=== PATIENT | male | born 1965 | race Caucasian/White ===

== ENCOUNTER 2020-05-30 10:24 | Emergency (ER) | payer OTHER, SELFPAY ==
[2020-05-30 11:27] VITALS: BP 139/79; PULSE 100; RESP 18; TEMP 36.4; O2SAT 97; BMI 20.5
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
[2020-05-30] MEDS: cephALEXin 500 MG CAPSULE PO (11:45)
== END 2020-05-30 11:52 | disposition home or self-care (01) ==
PROVIDERS: Emergency Provider Emergency Medicine; PCP Family Medicine
DX: L03.115 Cellulitis of right lower limb (principal); S70.311A Abrasion, right thigh, initial encounter; T24.211A Burn of second degree of right thigh, initial encounter; T31.0 Burns involving less than 10% of body surface; M79.661 Pain in right lower leg; X12.XXXA Contact with other hot fluids, initial encounter; Y93.9 Activity, unspecified; Y92.9 Unspecified place or not applicable; Z79.899 Other long term (current) drug therapy; Z23 Encounter for immunization
CPT/HCPCS: 90471; 90715; 99284

== ENCOUNTER 2020-08-23 16:42 | Inpatient (IN) | payer OTHER, SELFPAY ==
[2020-08-23 17:44] VITALS: BP 167/86; PULSE 100; RESP 19; TEMP 36.4; O2SAT 97; BMI 20.9
--- NOTE | 2020-08-23 17:44 | PC.NURSE ---
called x for triage
[2020-08-23 19:49] VITALS: BP 140/81; PULSE 85; RESP 18; TEMP 36.9; O2SAT 97
--- NOTE | 2020-08-23 19:51 | PC.NURSE ---
pt states his last drink was 2 days ago. pt feels himself going thur the dt's tremors to hands visable. pt is cooperative and follows commands.
[2020-08-23 20:11] LABS: Basophils Percent Auto 0.2 % (0-2); Eosinophils Percent Auto 0.3 % (0-4); Hematocrit 44.7 % (42-52); Hemoglobin 14.6 g/dl (14.0-18.0); Imm Gran Abs Auto 0.01 X10*3/uL (0.00-0.03); Imm Gran Pct Auto 0.2 % (0.0-0.4); Lymphocytes Absolute Auto 0.5 X10*3/uL (1.2-4.9); Lymphocytes Percent Auto 7.5 % (20-40); MANUAL DIFF FLAG SCAN; Mean Corpuscular HGB Conc 32.7 g/dl (31.0-36.0); Mean Corpuscular Hemoglobin 28.5 pg (27.0-33.0); Mean Corpuscular Volume 87.3 fL (80-98); Mean Platelet Volume 9.9 fL (9.4-12.4); Monocytes Absolute Auto 0.4 X10*3/uL (0.1-1.2); Monocytes Percent Auto 6.9 % (2-11); Neutrophils Absolute Auto 5.5 X10*3/uL (2.0-8.3); Neutrophils Percent Auto 84.9 % (45-73); Platelet Count 198 X10*3/uL (160-400); Red Blood Count 5.12 X10*6/uL (4.60-5.80); Red Cell Distribution Width 13.5 % (11.0-16.0); SCAN SMEAR FLAG 1; White Blood Count 6.4 X10*3/uL (4.8-10.8)
[2020-08-23 20:28] LABS: SLIDE REVIEW VERIFIED
[2020-08-23 20:32] LABS: Alanine Aminotransferase 38 U/L (0-40); Albumin Level 4.8 g/dL (3.5-5.0); Alkaline Phosphatase 103 U/L (39-117); Anion Gap 24 (12-20); Aspartate Amino Transferase 59 U/L (5-37); Bilirubin Direct 0.6 mg/dL (0.0-0.5); Bilirubin Total 1.4 mg/dL (0.0-1.0); Blood Urea Nitrogen 13 mg/dL (9-16); Carbon Dioxide 24 mmol/L (22-29); Chloride 99 mmol/L (96-108); Creatinine Clr Calc Pharmacy 85.5; Estimated Glomerular Filt Rate > 60; Glucose Random 137 mg/dL (60-115); Lipase 50 U/L (8-78); Potassium 3.9 mmol/l (3.3-5.1); Sodium 143 mmol/L (135-145); Total Protein 8.6 g/dL (6.5-8.0)
--- NOTE | 2020-08-23 21:17 | ED.GENADULT ---
HPI - General Adult General Chief complaint: Nausea/Vomiting/Diarrhea Stated complaint: nausea/vomiting Time Seen by Provider: 08/23/20 17:03 Source: patient and EMS Mode of arrival: EMS Limitations: no limitations History of Present Illness HPI narrative: 55 years old who is known alcoholic for 20 years, patient drank too much beer yesterday woke up this morning with abdominal pain and intractable vomiting, patient started to feel anxious and started to have tremors and shaking, patient is unable to drink today because the vomiting, unable to tolerate any p.o. intake. Patient declined any visual or auditory hallucination. Related Data Previous Rx's Medication Instructions Recorded bacitracin zinc [Antibiotic 1 applic TOPICAL BID 7 Days g NS 05/30/20 (bacitracin zinc)] cephalexin [Keflex] 500 mg PO Q6H 10 Days #40 cap 05/30/20 doxycycline hyclate 100 mg PO BID 10 Days #20 tab NS 05/30/20 Allergies Allergy/AdvReac Type Severity Reaction Status Date / Time No Known Allergies Allergy Verified 05/30/20 11:27 [No Known Allergies*] Review of Systems Review of Systems: All other systems are reviewed and are negative Constitutional: Reports as per HPI and Reports no additional constitutional complaints Eyes: Reports as per HPI and Reports no additional eye complaints Reports system reviewed and no additional complaints, except as documented Cardiovascular: Reports as per HPI and Reports no additional cardiovascular complaints Respiratory: Reports as per HPI and Reports no additional respiratory complaints Gastrointestinal: Reports as per HPI and Reports no additional gastrointestinal complaints Genitourinary: Reports no additional female genitourinary complaints Musculoskeletal: Reports no additional musculoskeletal complaints Skin/Breast: Reports system reviewed and no additional complaints, except as docu Psychiatric: Reports no additional psychiatric complaints Endocrine: Reports no additional endocrine complaints Hematologic/Lymphatic: Reports no additional hematologic/lymphatic complaints Allergic/Immunologic: Reports no additional allergic/immunologic complaints Reports system reviewed and no additional complaints, except as documented and Reports Abnormal speech present [facility] Past Medical History Medical History ETOH abuse Social History Social History Advance Directives: No Physical Exam Vital Signs: Vital Signs: Last Vital Signs Temp 98.4 F 08/23/20 19:49 Pulse 93 08/23/20 23:50 Resp 18 08/23/20 23:50 BP 120/53 L 08/23/20 23:50 Pulse Ox 98 08/23/20 23:50 Body Mass Index 20.9 Vital signs have been reviewed as normal and appeared to be correct. Blood pressure on the high side. Heart rate normal. Respiration rate normal. Temperature normal. Oxygen saturation normal. Appearance: Alert. Oriented X3. No acute distress, appear anxious Head: Normal external exam. Normocephalic. Atraumatic. No Sandoval signs noted. No raccoon eyes noted Eyes: PERRLA. EOMI. Conjunctiva and sclera normal. Eyelids normal. ENT: EAC normal. TM's Normal. Pharynx normal. Uvula midline. Moist mucous membranes. No trismus noted. No drooling noted. No muffled voice noted. Neck: Normal inspection. Neck supple. FROM. No adenopathy. Thyroid Normal. No meningeal signs. No neck mass noted. CVS: Normal heart rate and rhythm. Heart sound normal. No murmurs noted. Pulses normal throughout. Respiratory: No respiratory distress. Painless inspiration. Breath sounds normal. No wheezes/rales/rhonchi noted. Chest nontender. No accessory muscle usage noted or decreased air movement noted. Abdomen: Soft and nontender. Bowel sounds normal in all 4 quadrants. No distention noted. No organomegaly noted. No visible injury noted. Back: No CVA tenderness. Full range of motion noted. Skin: Skin warm and dry. Normal skin color. Normal skin turgor. No rashes/lesions/lacerations noted. Extremities: No lower extremity edema. Extremities exhibit normal range of motion. Extremities nontender. Neuro: Oriented X 3. No motor deficit. No sensory deficit. Reflexes normal. In voluntarily tremor to hands, with tongue fasciculation. Course Course Course Narrative: Assessment and plan. 55-year-old male daily alcohol abuser unable to tolerate p.o. intake for 1 day presented with alcohol withdrawal symptoms, hypo magnesemia. Repeat abdominal exam showed no tenderness Will admit for alcohol withdrawal, started on phenobarb protocol, replete magnesium, Zofran for nausea and vomiting, serial abdominal exam. Medical Decision Making Lab Data Result diagrams: 08/23/20 19:59 08/23/20 19:59 Labs: Lab Results 08/23/20 08/23/20 08/23/20 Range/Units 19:59 19:59 22:43 WBC 6.4 (4.8-10.8) X10*3/uL RBC 5.12 (4.60-5.80) X10*6/uL Hgb 14.6 (14.0-18.0) g/dl Hct 44.7 (42-52) % MCV 87.3 (80-98) fL MCH 28.5 (27.0-33.0) pg MCHC 32.7 (31.0-36.0) g/dl RDW 13.5 (11.0-16.0) % Plt Count 198 (160-400) X10*3/uL MPV 9.9 (9.4-12.4) fL Immature Gran % (Auto) 0.2 (0.0-0.4) % Neut % (Auto) 84.9 H (45-73) % Lymph % (Auto) 7.5 L (20-40) % [place] % (Auto) 6.9 (2-11) % Eos % (Auto) 0.3 (0-4) % Baso % (Auto) 0.2 (0-2) % Lymph # (Auto) 0.5 L (1.2-4.9) X10*3/uL [place] # (Auto) 0.4 (0.1-1.2) X10*3/uL Eos # (Auto) 0.0 (0.0-0.4) X10*3/uL Baso # (Auto) 0.0 (0.0-0.2) X10*3/uL Abs Immat Gran (auto) 0.01 (0.00-0.03) X10*3/uL Absolute Neuts (auto) 5.5 (2.0-8.3) X10*3/uL Absolute Nucleated RBC 0.000 (0.0-0.012) X10*3/uL Nucleated RBC % (auto) 0.0 (0.0-0.2) /100WBC Smear Tech's Comments VERIFIED Sodium 143 (135-145) mmol/L Potassium 3.9 (3.3-5.1) mmol/l Chloride 99 (96-108) mmol/L Carbon Dioxide 24 (22-29) mmol/L Anion Gap 24 H (12-20) BUN 13 (9-16) mg/dL Creatinine 0.77 (0.5-1.4) mg/dL Estim Creat Clear Calc 85.5 Estimated GFR > 60 Random Glucose 137 H (60-115) mg/dL Calcium 10.0 (8.4-10.2) mg/dL Magnesium 1.4 L* (1.6-2.6) mg/dL Total Bilirubin 1.4 H (0.0-1.0) mg/dL Direct Bilirubin 0.6 H (0.0-0.5) mg/dL AST 59 H (5-37) U/L ALT 38 (0-40) U/L Alkaline Phosphatase 103 (39-117) U/L Total Protein 8.6 H (6.5-8.0) g/dL Albumin 4.8 (3.5-5.0) g/dL Lipase 50 (8-78) U/L Phenobarbital < 1.1 L (10.0-40.0) mcg/mL Discharge Plan Discharge Clinical Impression: Alcohol withdrawal, Hypomagnesemia Patient Disposition: Admitted As Inpatient Prescriptions: No Action cephalexin [Keflex] 500 mg capsule 500 mg PO Q6H 10 Days Qty: 40 RF: 0 doxycycline hyclate 100 mg tablet 100 mg PO BID 10 Days Qty: 20 RF: 0 bacitracin zinc [Antibiotic (bacitracin zinc)] 500 unit/gram ointment 1 applic topical BID 7 Days RF: 0
[2020-08-23 22:00] VITALS: RESP 20
[2020-08-23] MEDS: PHENobarbitaL sodium 130 MG/ML VIAL 230 MG IM (23:00)
[2020-08-23] MEDS: Magnesium Hydrox/Alum Hydrox 30 ML ORAL.SUSP PO (23:01)
[2020-08-23] MEDS: LORazepam 2 MG/ML VIAL 1 MG IVPUSH (23:01)
[2020-08-23] MEDS: Famotidine/PF 20 MG/2 ML VIAL IVPUSH (23:01)
[2020-08-23] MEDS: 0.9 % Sodium Chloride 1,000 ML 999 ML IVCONT (23:01)
[2020-08-23] MEDS: ondansetron HCL 4 MG/2 ML VIAL IVPUSH (23:01)
[2020-08-23 23:50] VITALS: BP 120/53; PULSE 93; RESP 18; O2SAT 98
[2020-08-23 23:53] LABS: Magnesium 1.4 mg/dL (1.6-2.6)
--- NOTE | 2020-08-23 23:57 | PC.NURSE ---
PATIENT MOVED FROM ED BED 18 [facility] TO ED BED 15. AT BEDSIDE WITH DIALS SUPERVISOR AT BEDSIDE.
[2020-08-24] VITALS (7 sets, daily range): BP systolic 105–140; BP diastolic 63–82; PULSE 67–91; RESP 16–18; TEMP 36.8; O2SAT 97–99
[2020-08-24] MEDS: Magnesium Sulfate/H2O 2 GM/50 ML PIGGYBACK IV (00:37)
[2020-08-24 01:35] LABS: Influenza A PCR NEGATIVE (Negative); Influenza B PCR NEGATIVE (Negative); Resp Syncy Virus RNA Qual PCR NEGATIVE (Negative); SARS COV2 PCR INHOUSE NEGATIVE (Negative)
--- NOTE | 2020-08-24 05:19 | P.HPHOSP_ITS ---
History of Present Illness Date of Service: 08/23/20 Chief Complaint: alcohol withdrawal, intractable N/V 55-year-old with past medical history of alcohol abuse who presents to the hospital stating that he binge drank the day before and has been nauseous and vomiting since. Patient reports he was with friends and started binge drinking a lot to the point where he started throwing up. He is now feeling shaky and weak. He is now making himself throw up as well because he feels nauseous and sick to his stomach. He otherwise denies any chest pain, no shortness of breath, no headache or change in vision, no urinary symptoms and no lower extremity edema. He is a daily drinker drinks about 6-7 beers daily, reports withdrawal symptoms if he does not drink. On arrival to the ED hemodynamically stable with no significant abnormal vitals Lab significant for WBC count of 6.4, hemoglobin of 14.6, sodium of 143, potassium of 3.9, magnesium of 1.4, total bili of 1.4, AST of 59, COVID-19 negative. Past medical history: Alcohol abuse Past surgical history: Denies Family history: Denies Social hx: comes from home, smokes 1 ppd, drinks 6-7 beers daily with hx of withdrawal, denies illicit drug use Review of Systems Review of Systems: Yes all other systems are reviewed and are negative [facility] Medical History ETOH abuse Social History Advance Directives: No Meds Allergies Allergy/AdvReac Type Severity Reaction Status Date / Time No Known Allergies Allergy Verified 05/30/20 11:27 [No Known Allergies*] Physical Exam Vital Signs and Narrative: Vital Signs: Last Vital Signs Temp 98.4 F 08/23/20 19:49 Pulse 93 08/23/20 23:50 Resp 18 08/23/20 23:50 BP 120/53 L 08/23/20 23:50 Pulse Ox 98 08/23/20 23:50 Body Mass Index 20.9 Results Labs CBC and Chem 7: 08/23/20 19:59 08/23/20 19:59 Labs: Laboratory Results - last 24 hr 08/23/20 08/23/20 08/23/20 19:59 19:59 22:43 MCV 87.3 MCH 28.5 MCHC 32.7 RDW 13.5 Plt Count 198 MPV 9.9 Immature Gran % (Auto) 0.2 Neut % (Auto) 84.9 H Lymph % (Auto) 7.5 L [place] % (Auto) 6.9 Eos % (Auto) 0.3 Baso % (Auto) 0.2 Lymph # (Auto) 0.5 L [place] # (Auto) 0.4 Eos # (Auto) 0.0 Baso # (Auto) 0.0 Abs Immat Gran (auto) 0.01 Absolute Neuts (auto) 5.5 Absolute Nucleated RBC 0.000 Nucleated RBC % (auto) 0.0 Smear Tech's Comments VERIFIED Anion Gap 24 H Estim Creat Clear Calc 85.5 Estimated GFR > 60 Random Glucose 137 H Calcium 10.0 Magnesium 1.4 L* Total Bilirubin 1.4 H Direct Bilirubin 0.6 H AST 59 H ALT 38 Alkaline Phosphatase 103 Total Protein 8.6 H Albumin 4.8 Lipase 50 Phenobarbital < 1.1 L Coronavirus (PCR) Influenza Type A (PCR) Influenza Type B (PCR) RSV RNA Qual (PCR) 08/24/20 00:45 MCV MCH MCHC RDW Plt Count MPV Immature Gran % (Auto) Neut % (Auto) Lymph % (Auto) [place] % (Auto) Eos % (Auto) Baso % (Auto) Lymph # (Auto) [place] # (Auto) Eos # (Auto) Baso # (Auto) Abs Immat Gran (auto) Absolute Neuts (auto) Absolute Nucleated RBC Nucleated RBC % (auto) Smear Tech's Comments Anion Gap Estim Creat Clear Calc Estimated GFR Random Glucose Calcium Magnesium Total Bilirubin Direct Bilirubin AST ALT Alkaline Phosphatase Total Protein Albumin Lipase Phenobarbital Coronavirus (PCR) NEGATIVE Influenza Type A (PCR) NEGATIVE Influenza Type B (PCR) NEGATIVE RSV RNA Qual (PCR) NEGATIVE Assessment and Plan (1) Alcohol withdrawal: Qualifiers: Complication of substance-induced condition: uncomplicated Qualified Code(s): F10.230 - Alcohol dependence with withdrawal, uncomplicated Status: Acute (2) Hypomagnesemia: Status: Acute (3) Tobacco use disorder: Status: Acute (4) Intractable nausea and vomiting: Status: Acute This is a 55-year-old male who presents to the hospital with complaints of alcohol withdrawal, intractable nausea vomiting. # alcohol withdrawal - drinks daily, been drink before coming to the hospital, now has intractable nausea vomiting - get started on phenobarbital in the ED - continue phenobarbital, thiamine and folic acid supplement # hypomagnesemia - repleted - will follow Mag level in a.m. # tobacco use disorder - not interested in nicotine replacement therapy DVT prophylaxis: Donald
--- NOTE | 2020-08-24 05:54 | PC.NURSE ---
VITAL SIGNS THAT WERE DOCUMENTED ON 08/23/20 AT 22:00 ENTERED ON WRONG PATIENT IN ERROR BY THIS RN. DISREGARD INVALID ENTRY.
--- NOTE | 2020-08-24 07:25 | PC.NURSE ---
report taken from otis zimmerman pt resting in stretcher, rr even/unlabored, speaking in full clear sentences, skin wpd. pt able to sit on edge of bed, eating breakfast without any issues. no nausea or vomitting noted. pt admitted as inpt. wctm for discharge needs.
[2020-08-24] MEDS: PHENobarbitaL 15 MG TABLET 45 MG PO ×2 (08:34→21:25)
[2020-08-24 11:53] LABS: MANUAL DIFF FLAG NO
[2020-08-24 11:55] LABS: Basophils Percent Auto 0.2 % (0-2); Hematocrit 44.9 % (42-52); Hemoglobin 14.6 g/dl (14.0-18.0); Imm Gran Abs Auto 0.05 X10*3/uL (0.00-0.03); Imm Gran Pct Auto 0.4 % (0.0-0.4); Lymphocytes Absolute Auto 1.5 X10*3/uL (1.2-4.9); Lymphocytes Percent Auto 12.5 % (20-40); Mean Corpuscular HGB Conc 32.5 g/dl (31.0-36.0); Mean Corpuscular Hemoglobin 28.5 pg (27.0-33.0); Mean Corpuscular Volume 87.7 fL (80-98); Mean Platelet Volume 9.8 fL (9.4-12.4); Monocytes Absolute Auto 0.8 X10*3/uL (0.1-1.2); Monocytes Percent Auto 7.1 % (2-11); Neutrophils Absolute Auto 9.4 X10*3/uL (2.0-8.3); Neutrophils Percent Auto 79.8 % (45-73); Platelet Count 171 X10*3/uL (160-400); Red Blood Count 5.12 X10*6/uL (4.60-5.80); Red Cell Distribution Width 13.3 % (11.0-16.0); White Blood Count 11.8 X10*3/uL (4.8-10.8)
--- NOTE | 2020-08-24 12:04 | PC.NURSE ---
pt iv tubing switched, appears soiled, repeat blood labs obtained and sent per verbal order from hospitalist.
[2020-08-24 12:58] LABS: Anion Gap 17 (12-20); Blood Urea Nitrogen 11 mg/dL (9-16); Calcium 9.3 mg/dL (8.4-10.2); Carbon Dioxide 28 mmol/L (22-29); Chloride 97 mmol/L (96-108); Creatinine Clr Calc Pharmacy 96.8; Estimated Glomerular Filt Rate > 60; Glucose Random 99 mg/dL (60-115); Magnesium 2.3 mg/dL (1.6-2.6); Potassium 4.2 mmol/l (3.3-5.1); Sodium 138 mmol/L (135-145)
--- NOTE | 2020-08-24 14:45 | PC.NURSE ---
pt sts feeling much better than when i came . resting in stretcher, given replacement hospital pants for comfort. ambulated to and from bathroom w steady gait.
--- NOTE | 2020-08-24 15:02 | P.PNIM_ITS ---
Subjective Subjective Date of Service: 08/24/20 Interval History: For alcohol withdrawal with intractable nausea vomiting, patient feels better this a.m. complaining of mild nausea otherwise denies abdominal pain, denies tremors no acute issues since admit. Review of Systems General no headache, no dizziness, no fever chills. CVS no chest pain, no palpitation. Respiratory no cough, no sputum production, no respiratory distress. Gastrointestinal mild nausea, no vomiting, no abdominal pain Physical Exam Vital Signs: Vital Signs: Last Vital Signs Temp 98.4 F 08/23/20 19:49 Pulse 72 08/24/20 04:00 Resp 16 08/24/20 04:00 BP 140/74 H 08/24/20 04:00 Pulse Ox 98 08/24/20 04:00 Body Mass Index 20.9 Const: Other: General patient resting comfortably in no acute distress. Neck is supple no JVD. CVS regular rate rhythm, Respiratory lungs clear to auscultation, no respiratory distress Gastrointestinal abdomen soft, nontender, bowel sounds audible, no guarding , no rigidity. Extremities no clubbing cyanosis or edema. Neuro nonfocal patient moving all 4 extremity, speech clear. Skin no rash Objective Data Current Medications Generic Name Dose Route Start Last Admin Trade Name Freq PRN Reason Stop Dose Admin Medication 1 each 08/24/20 09:00 No Benzodiazepines MISCELLANE DAILY [facility] Phenobarbital 45 mg 08/24/20 09:00 08/24/20 08:34 Phenobarbital 15 Mg Tablet PO 08/25/20 21:01 45 mg BID [facility] Administration Phenobarbital 15 mg 08/26/20 09:00 Phenobarbital 15 Mg Tablet PO 08/27/20 21:01 BID [facility] Phenobarbital 15 mg 08/28/20 09:00 Phenobarbital 15 Mg Tablet PO 08/29/20 09:01 DAILY [facility] Labs CBC & Chem 7: 08/24/20 11:48 08/24/20 11:48 Assessment and Plan (1) Alcohol withdrawal: Status: Acute (2) Hypomagnesemia: Status: Acute (3) Tobacco use disorder: Status: Acute (4) Intractable nausea and vomiting: Status: Acute Assessment and Plan: This is a 55-year-old male who presents to the hospital with complaints of alcohol withdrawal, intractable nausea and vomiting. # alcohol withdrawal with intractable nausea and vomiting Nausea vomiting improving, continue phenobarb protocol thiamine , folic acid and anti emetics. Care team consult prior to discharge # hypomagnesemia - low magnesium related to poor nutrition with chronic alcohol abuse, repleted on admission magnesium 1.4 now improved to 2.3 # tobacco use disorder - patient declined nicotine replacement therapy DVT prophylaxis: Lovenox
[2020-08-24] MEDS: Folic Acid 1 MG TABLET PO (15:47)
[2020-08-24] MEDS: Thiamine HCL 100 MG TABLET PO (15:47)
[2020-08-24] MEDS: Enoxaparin Sodium 40 MG/0.4 ML SYRINGE SUBCUT (15:47)
--- NOTE | 2020-08-24 16:03 | PC.NURSE ---
took afternoon meds w/o issue. given cup of coffee per request. nad.
--- NOTE | 2020-08-24 19:49 | PC.NURSE ---
Report taken from qasim Pickering RN resuming care. Pt found awake and alert in bed, in NAD. Pt denies pain, denies alcohol withdrawals, no temors, N/V, auditory/visual hallucinations at this time. VSS. Pt aware of plan of care, awaiting bed assignment. Continue to monitor.
--- NOTE | 2020-08-24 21:09 | PC.NURSE ---
This RN calling pharmacy as the pyxis is out of Phenobarb tablets. Pharm to bring medication to ED. Awaiting medication.
[2020-08-25] MEDS: 0.9 % Sodium Chloride Flush 3 ML SYRINGE IVFLUSH (00:05)
[2020-08-25 02:58] VITALS: RESP 16
[2020-08-25 05:43] VITALS: RESP 20
[2020-08-25 05:56] VITALS: BP 148/72; PULSE 68; RESP 16; O2SAT 99
--- NOTE | 2020-08-25 05:57 | PC.NURSE ---
Pt awake and alert, resting in bed, denies pain/discomfort. Pt denies any s/sx of alcohol withdrawal at this time. -Tremors/hallucinations/anxiety/N/V noted. VSS. Continue to monitor.
[2020-08-25 09:00] VITALS: BP 136/72; PULSE 74; RESP 18; TEMP 36.8; O2SAT 99
--- NOTE | 2020-08-25 09:00 | PC.NURSE ---
Pt requesting to leave AMA. Pacing in room. States he is feeling better and just wants to go home. Dr Shannon notified, patient to be seen by CARE team prior to discharge home. Pt agreeable to plan.
--- NOTE | 2020-08-25 10:52 | MHC.RECOVSUP ---
Recovery Support note: Patient is a 55 year old Surinamese speaking male who [place] [facility] due to headache, nausea, vomiting and dizziness. Patient was going to be medically admitted when he expressed his desire to leave AMA. This entry writer met with patient to discuss his alcohol use. Patient reports he is scared because of the sound/ pain coming from his liver. Patient acknowledges that continued alcohol use will only make it worse. Patient reports he plans to avoid alcohol entirely. Patient states he has tried to stop drinking in the past and that he found AA meetings helpful. Patient reports his is supportive and that she also wants patient to stop drinking and to get into meetings. Patient reports he wants to remain in the hospital however states someone is staying in my room and I need to go get the banuelos. Encouraged patient to return to the ED if symptoms continue or worsen. Discussed case with patient's RN, Andres.
--- NOTE | 2020-08-25 11:04 | MHC.CM.PN ---
CM ASSESSMENT INCOMPLETE DUE TO PT LEAVING AMA PRIOR TO TRANSFER TO UNIT, CM SPOKE WITH CARE TEAM WHO REPORTS THEY SAW PT IN ED.
--- NOTE | 2020-08-25 14:23 | P.DS_ITS ---
DS: Providers Provider Date of Service: 08/25/20 Date of admission: 08/23/20 23:43 Primary care physician: Unknown Physician Consults: 08/25/20 09:20 Consult to Care Team Stat Comment: Reason for consultation: substance abuse, needs consult prior to DC DS: Diagnosis Discharge Diagnosis (1) Alcohol withdrawal: Status: Acute (2) Hypomagnesemia: Status: Acute (3) Tobacco use disorder: Status: Acute (4) Intractable nausea and vomiting: Status: Acute DS: Medications Discharge Medications Home Medications: Home Medications Medication Instructions Recorded Confirmed melatonin 10 mg PO BEDTIME 08/25/20 08/25/20 ondansetron HCl 4 mg PO Q6H PRN 08/25/20 08/25/20 DS: Summary Hospital Course Hospital Course: History of presenting illness Chief Complaint: alcohol withdrawal, intractable N/V 55-year-old with past medical history of alcohol abuse who presents to the hospital stating that he binge drank the day before and has been nauseous and vo miting since. Patient reports he was with friends and started binge drinking a lot to the point where he started throwing up. He is now feeling shaky and weak. He is now making himself throw up as well because he feels nauseous and sick to his stomach. He otherwise denies any chest pain, no shortness of breath, no headache or change in vision, no urinary symptoms and no lower extremity edema. He is a daily drinker drinks about 6-7 beers daily, reports withdrawal symptoms if he does not drink. On arrival to the ED hemodynamically stable with no significant abnormal vitals Lab significant for WBC count of 6.4, hemoglobin of 14.6, sodium of 143, potassium of 3.9, magnesium of 1.4, total bili of 1.4, AST of 59, COVID-19 negative. Hospital course Alcohol abuse and withdrawal Patient was admitted to medical floor was treated with phenobarb protocol, antiemetics patient's symptoms improved rapidly with above treatment, patient has no further nausea vomiting tolerating diet therefore being discharged home, patient seen by care team, patient has been strongly advised to abstain from alcohol. Hypo magnesemia patient was noted to have low magnesium level that has been repleted repeat magnesium level is within normal range Tobacco use disorder counseling done patient refused nicotine replacement therapy Time Spent with Patient Time attestation: Total time spent providing and/or coordinating discharge services: Discharge coordination time: Greater than 30 minutes Physical Exam Vital Signs: Vital Signs: Last Vital Signs Temp 98.2 F 08/25/20 09:00 Pulse 74 08/25/20 09:00 Resp 18 08/25/20 09:00 BP 136/72 08/25/20 09:00 Pulse Ox 99 08/25/20 09:00 Body Mass Index 20.9 General patient is standing in hallway, no acute distress. Neck is supple no JVD. CVS regular rate rhythm, Respiratory lungs clear to auscultation, no respiratory distress, no wheeze, no rhonchi. Gastrointestinal abdomen soft, nontender, bowel sounds audible Extremities no clubbing cyanosis or edema. Neuro nonfocal , speech clear, no tremors. Skin no rash DS: Data Data Completed and Pending Labs on day of discharge: Laboratory Tests 08/23/20 08/23/20 08/23/20 19:59 19:59 22:43 WBC 6.4 RBC 5.12 Hgb 14.6 Hct 44.7 MCV 87.3 MCH 28.5 MCHC 32.7 RDW 13.5 Plt Count 198 MPV 9.9 Immature Gran % (Auto) 0.2 Neut % (Auto) 84.9 H Lymph % (Auto) 7.5 L [place] % (Auto) 6.9 Eos % (Auto) 0.3 Baso % (Auto) 0.2 Lymph # (Auto) 0.5 L [place] # (Auto) 0.4 Eos # (Auto) 0.0 Baso # (Auto) 0.0 Abs Immat Gran (auto) 0.01 Absolute Neuts (auto) 5.5 Absolute Nucleated RBC 0.000 Nucleated RBC % (auto) 0.0 Smear Tech's Comments VERIFIED Sodium 143 Potassium 3.9 Chloride 99 Carbon Dioxide 24 Anion Gap 24 H BUN 13 Creatinine 0.77 Estim Creat Clear Calc 85.5 Estimated GFR > 60 Random Glucose 137 H Calcium 10.0 Magnesium 1.4 L* Total Bilirubin 1.4 H Direct Bilirubin 0.6 H AST 59 H ALT 38 Alkaline Phosphatase 103 Total Protein 8.6 H Albumin 4.8 Lipase 50 Phenobarbital < 1.1 L Coronavirus (PCR) Influenza Type A (PCR) Influenza Type B (PCR) RSV RNA Qual (PCR) 08/24/20 08/24/20 08/24/20 00:45 11:48 11:48 WBC 11.8 H RBC 5.12 Hgb 14.6 Hct 44.9 MCV 87.7 MCH 28.5 MCHC 32.5 RDW 13.3 Plt Count 171 MPV 9.8 Immature Gran % (Auto) 0.4 Neut % (Auto) 79.8 H Lymph % (Auto) 12.5 L [place] % (Auto) 7.1 Eos % (Auto) 0.0 Baso % (Auto) 0.2 Lymph # (Auto) 1.5 [place] # (Auto) 0.8 Eos # (Auto) 0.0 Baso # (Auto) 0.0 Abs Immat Gran (auto) 0.05 H Absolute Neuts (auto) 9.4 H Absolute Nucleated RBC 0.000 Nucleated RBC % (auto) 0.0 Smear Tech's Comments Sodium 138 Potassium 4.2 Chloride 97 Carbon Dioxide 28 Anion Gap 17 BUN 11 Creatinine 0.68 Estim Creat Clear Calc 96.8 Estimated GFR > 60 Random Glucose 99 Calcium 9.3 D Magnesium 2.3 Total Bilirubin Direct Bilirubin AST ALT Alkaline Phosphatase Total Protein Albumin Lipase Phenobarbital Coronavirus (PCR) NEGATIVE Influenza Type A (PCR) NEGATIVE Influenza Type B (PCR) NEGATIVE RSV RNA Qual (PCR) NEGATIVE Discharge Plan Discharge Patient Disposition: Home, Self-Care Referrals: Physician,Unknown [Primary Care Provider] - Discharge Medications: Continued ondansetron HCl 4 mg tablet 4 mg PO Q6H PRN (Reason: nausea/vomiting) RF: 0 melatonin 5 mg tablet 10 mg PO BEDTIME RF: 0 Discharge Orders: Discharge Order (Routine); Ordered 08/25/20 Ordered By: Lupe Shannon Activity on Discharge: As tolerated Discharge Date/Time: 08/25/20 13:50 Visit Report Forms: Patient Portal Discharge page Care Plan Goals: abstain from alcohol Health Concerns: no alcohol Plan of Treatment: follow up with pcp
== END 2020-08-25 13:50 | disposition home or self-care (01) | DRG 641 ==
LOC: HO.ED 08-24 00:24 → HO.S3 08-25 09:02
PROVIDERS: Hospitalist; Admitting Provider Internal Medicine; Emergency Provider Emergency Medicine; Visit Provider Internal Medicine
DX: E83.42 Hypomagnesemia (principal); F10.230 Alcohol dependence with withdrawal, uncomplicated; F17.210 Nicotine dependence, cigarettes, uncomplicated; Z71.6 Tobacco abuse counseling; Z20.828 Contact with and (suspected) exposure to other viral communicable diseases; Z79.899 Other long term (current) drug therapy
CPT/HCPCS: 0241U; 36415; 80048; 80053; 80076; 80184; 82248; 83690; 83735; 85025; 96365; 96372; 96375; 99285; J1650; J2060; J2405; J2560; J3411; J3475

== ENCOUNTER 2020-09-16 02:42 | Emergency (ER) | payer OTHER, SELFPAY ==
[2020-09-16 02:47] VITALS: BP 147/81; PULSE 110; RESP 16; TEMP 36.8; O2SAT 98; BMI 20.1
--- NOTE | 2020-09-16 03:10 | ED.NAVMDI ---
HPI - Nausea/Vomiting/Diarrhea General Chief complaint: Nausea/Vomiting/Diarrhea Stated complaint: vomiting Time Seen by Provider: 09/16/20 03:10 Source: patient Mode of arrival: EMS History of Present Illness HPI Narrative: This is a 55-year-old male known alcohol dependence who presents via EMS for multiple episodes of nausea, vomiting, abdominal discomfort, mild diarrhea, tremulousness, and auditory hallucinations. Otherwise, denies fever, chills, sore throat, cough, shortness of breath. Related Data Home Medications Medication Instructions Recorded Confirmed melatonin 10 mg PO BEDTIME 08/25/20 08/25/20 ondansetron HCl 4 mg PO Q6H PRN 08/25/20 08/25/20 Allergies Allergy/AdvReac Type Severity Reaction Status Date / Time No Known Allergies Allergy Verified 05/30/20 11:27 [No Known Allergies*] Review of Systems Review of Systems: Pertinent positives and negatives as stated in HPI 10 point review of systems is otherwise negative PMFSH Past Medical History Source: nursing notes reviewed Medical History ETOH abuse Social History Social History Alcohol intake: current Alcohol intake frequency: 3 or more drinks per day Alcohol type: hard liquor Smoking Status: Never smoker Smoked in Last 30 Days: No Use of substances other than those prescribed or required for medical reasons: No Advance Directives: No Physical Exam Vital Signs: Vital Signs: Last Vital Signs Temp 98.2 F 09/16/20 02:47 Pulse 84 09/16/20 04:00 Resp 16 09/16/20 04:00 BP 148/74 H 09/16/20 04:00 Pulse Ox 98 09/16/20 04:00 Body Mass Index 20.1 VITAL SIGNS: Reviewed. GENERAL: Cachectic, mild distress. HEAD: Normocephalic/atraumatic, EYES: PERRLA, EOMI EARS: Ext canals without abnormality, TMs non-bulging and non-erythematous NOSE: Nares patent bilateral OROPHARYNX: no oral lesions noted, posterior pharynx clear, dry mucosa, poor dentition NECK: Supple, no adenopathy LUNGS: Normal breath sounds. SpO2<98> CARDIOVASCULAR: Regular rate and rhythm without noted murmurs, no JVD or lower extremity edema. ABDOMEN: Soft, minimal diffuse tenderness, non-distended with bowel sounds. NEUROLOGIC: Alert and oriented x 4. Tremulous, strength and sensation to light touch were grossly intact x 4. Course Course Course Narrative: This is a 55-year-old male with history and clinical presentation suggestive alcohol withdrawal and likely dehydration. -labs, EKG, urinalysis, IV fluids, Zofran, benzos Review of all investigations and re-evaluation there are no acute changes and the mild leukocytosis that is observed is likely secondary to patient's nausea and vomiting. Patient was provided with the p.o. challenge which he completed successfully and states that he is feeling much better and is requesting to be discharged. MDM - Nausea/Vomiting/Diarrhea Lab Data Result diagrams: 09/16/20 03:14 09/16/20 03:14 Labs: Lab Results 09/16/20 09/16/20 09/16/20 Range/Units 03:14 03:14 03:14 WBC 11.8 H (4.8-10.8) X10*3/uL RBC 5.29 (4.60-5.80) X10*6/uL Hgb 14.9 (14.0-18.0) g/dl Hct 45.1 (42-52) % MCV 85.3 (80-98) fL MCH 28.2 (27.0-33.0) pg MCHC 33.0 (31.0-36.0) g/dl RDW 13.8 (11.0-16.0) % Plt Count 171 (160-400) X10*3/uL MPV 10.0 (9.4-12.4) fL Immature Gran % (Auto) 0.4 (0.0-0.4) % Neut % (Auto) 86.5 H (45-73) % Lymph % (Auto) 5.2 L (20-40) % [place] % (Auto) 7.6 (2-11) % Eos % (Auto) 0.1 (0-4) % Baso % (Auto) 0.2 (0-2) % Lymph # (Auto) 0.6 L (1.2-4.9) X10*3/uL [place] # (Auto) 0.9 (0.1-1.2) X10*3/uL Eos # (Auto) 0.0 (0.0-0.4) X10*3/uL Baso # (Auto) 0.0 (0.0-0.2) X10*3/uL Abs Immat Gran (auto) 0.05 H (0.00-0.03) X10*3/uL Absolute Neuts (auto) 10.2 H (2.0-8.3) X10*3/uL Absolute Nucleated RBC 0.000 (0.0-0.012) X10*3/uL Nucleated RBC % (auto) 0.0 (0.0-0.2) /100WBC Smear Tech's Comments VERIFIED Hold Purple Top SEE NOTE Hold Blue Top SEE NOTE Sodium (135-145) mmol/L Potassium (3.3-5.1) mmol/L Chloride (96-108) mmol/L Carbon Dioxide (22-29) mmol/L Anion Gap (12-20) BUN (9-16) mg/dL Creatinine (0.5-1.4) mg/dL Estim Creat Clear Calc Estimated GFR Random Glucose (60-115) mg/dL Calcium (8.4-10.2) mg/dL Total Bilirubin (0.0-1.0) mg/dL Direct Bilirubin (0.0-0.5) mg/dL AST (5-37) U/L ALT (0-40) U/L Alkaline Phosphatase (39-117) U/L Total Protein (6.5-8.0) g/dL Albumin (3.5-5.0) g/dL Lipase (8-78) U/L // Range/Units 03:14 WBC (4.8-10.8) X10*3/uL RBC (4.60-5.80) X10*6/uL Hgb (14.0-18.0) g/dl Hct (42-52) % MCV (80-98) fL MCH (27.0-33.0) pg MCHC (31.0-36.0) g/dl RDW (11.0-16.0) % Plt Count (160-400) X10*3/uL MPV (9.4-12.4) fL Immature Gran % (Auto) (0.0-0.4) % Neut % (Auto) (45-73) % Lymph % (Auto) (20-40) % [place] % (Auto) (2-11) % Eos % (Auto) (0-4) % Baso % (Auto) (0-2) % Lymph # (Auto) (1.2-4.9) X10*3/uL [place] # (Auto) (0.1-1.2) X10*3/uL Eos # (Auto) (0.0-0.4) X10*3/uL Baso # (Auto) (0.0-0.2) X10*3/uL Abs Immat Gran (auto) (0.00-0.03) X10*3/uL Absolute Neuts (auto) (2.0-8.3) X10*3/uL Absolute Nucleated RBC (0.0-0.012) X10*3/uL Nucleated RBC % (auto) (0.0-0.2) /100WBC Smear Tech's Comments Hold Purple Top Hold Blue Top Sodium 140 (135-145) mmol/L Potassium 3.8 (3.3-5.1) mmol/L Chloride 91 L (96-108) mmol/L Carbon Dioxide 27 (22-29) mmol/L Anion Gap 26 H (12-20) BUN 15 (9-16) mg/dL Creatinine 0.78 (0.5-1.4) mg/dL Estim Creat Clear Calc 81.2 Estimated GFR > 60 Random Glucose 145 H D (60-115) mg/dL Calcium 9.7 (8.4-10.2) mg/dL Total Bilirubin 1.5 H (0.0-1.0) mg/dL Direct Bilirubin 0.5 (0.0-0.5) mg/dL AST 48 H (5-37) U/L ALT 31 (0-40) U/L Alkaline Phosphatase 125 H D (39-117) U/L Total Protein 8.5 H (6.5-8.0) g/dL Albumin 4.3 (3.5-5.0) g/dL Lipase 37 (8-78) U/L ECG Data Attestation: I personally reviewed and interpreted this ECG as follows: Prior ECG tracings: available for review (04/07/2020 no acute changes on comparison) Interpretation: Sinus tachycardia, HR -106, no evidence of acute ischemia, MS/QRS/QTC within normal limits. Discharge Plan Discharge Clinical Impression: Gastritis Qualifiers: Gastritis type: alcoholic Chronicity: acute Gastritis bleeding: without bleeding Qualified Code(s): K29.20 - Alcoholic gastritis without bleeding Alcohol withdrawal Qualifiers: Complication of substance-induced condition: uncomplicated Qualified Code(s): F10.230 - Alcohol dependence with withdrawal, uncomplicated Patient Disposition: Home, Self-Care Instructions: Diet for Stomach Ulcers and Gastritis (ED), Gastritis (ED), Alcohol Withdrawal (ED) Additional Instructions: Please do not hesitate to return to the emergency department the have any acute worsening of your symptoms. Prescriptions: No Action ondansetron HCl 4 mg tablet 4 mg PO Q6H PRN (Reason: nausea/vomiting) RF: 0 melatonin 5 mg tablet 10 mg PO BEDTIME RF: 0 Print Language: Macedonian
--- NOTE | 2020-09-16 03:12 | ECG_ITS ---
Test Reason : NAUSEA Blood Pressure : / mmHG Vent. Rate : 106 BPM Atrial Rate : 106 BPM P-R Int : 112 ms QRS Dur : 078 ms QT Int : 360 ms P-R-T Axes : 076 070 066 degrees QTc Int : 478 ms Sinus tachycardia Otherwise normal ECG When compared with ECG of 07-APR-2020 01:44, No significant change was found Referred By: Farrah Rothman Electronically Signed By:SUSU SANCHES MD
[2020-09-16 03:20] LABS: Basophils Percent Auto 0.2 % (0-2); PLT CLUMP 1; SCAN SMEAR FLAG 1
[2020-09-16 03:22] LABS: Eosinophils Percent Auto 0.1 % (0-4); Hematocrit 45.1 % (42-52); Hemoglobin 14.9 g/dl (14.0-18.0); Imm Gran Abs Auto 0.05 X10*3/uL (0.00-0.03); Imm Gran Pct Auto 0.4 % (0.0-0.4); Lymphocytes Absolute Auto 0.6 X10*3/uL (1.2-4.9); Lymphocytes Percent Auto 5.2 % (20-40); MANUAL DIFF FLAG SCAN; Mean Corpuscular Hemoglobin 28.2 pg (27.0-33.0); Mean Corpuscular Volume 85.3 fL (80-98); Monocytes Absolute Auto 0.9 X10*3/uL (0.1-1.2); Monocytes Percent Auto 7.6 % (2-11); Neutrophils Absolute Auto 10.2 X10*3/uL (2.0-8.3); Neutrophils Percent Auto 86.5 % (45-73); Red Blood Count 5.29 X10*6/uL (4.60-5.80); Red Cell Distribution Width 13.8 % (11.0-16.0); White Blood Count 11.8 X10*3/uL (4.8-10.8)
[2020-09-16 03:40] LABS: Platelet Count 171 X10*3/uL (160-400)
[2020-09-16 03:41] LABS: SLIDE REVIEW VERIFIED
[2020-09-16 03:48] LABS: Alanine Aminotransferase 31 U/L (0-40); Albumin Level 4.3 g/dL (3.5-5.0); Alkaline Phosphatase 125 U/L (39-117); Anion Gap 26 (12-20); Aspartate Amino Transferase 48 U/L (5-37); Bilirubin Direct 0.5 mg/dL (0.0-0.5); Bilirubin Total 1.5 mg/dL (0.0-1.0); Blood Urea Nitrogen 15 mg/dL (9-16); Calcium 9.7 mg/dL (8.4-10.2); Carbon Dioxide 27 mmol/L (22-29); Chloride 91 mmol/L (96-108); Creatinine Clr Calc Pharmacy 81.2; Estimated Glomerular Filt Rate > 60; Glucose Random 145 mg/dL (60-115); Lipase 37 U/L (8-78); Potassium 3.8 mmol/L (3.3-5.1); Sodium 140 mmol/L (135-145); Total Protein 8.5 g/dL (6.5-8.0)
[2020-09-16 04:00] VITALS: BP 148/74; PULSE 84; RESP 16; O2SAT 98
[2020-09-16] MEDS: LORazepam 2 MG/ML VIAL 1 MG IVPUSH (04:06)
[2020-09-16] MEDS: ondansetron HCL 4 MG/2 ML VIAL IVPUSH (04:06)
[2020-09-16] MEDS: 0.9 % Sodium Chloride 2,000 ML 999 ML IV (04:16)
[2020-09-16] MEDS: Lidocaine HCl Viscous 2 % 15 ML SOLUTION 10 ML MUCOUS MEM (05:05)
[2020-09-16] MEDS: Magnesium Hydrox/Alum Hydrox 30 ML ORAL.SUSP PO (05:05)
== END 2020-09-16 11:49 | disposition home or self-care (01) ==
PROVIDERS: Emergency Provider Student in an Organized Health Care Education/Training Program
DX: K29.20 Alcoholic gastritis without bleeding (principal); F10.230 Alcohol dependence with withdrawal, uncomplicated; R00.0 Tachycardia, unspecified
CPT/HCPCS: 36415; 80048; 80076; 83690; 85025; 93005; 96361; 96374; 96375; 99284; J2060; J2405

== ENCOUNTER 2021-01-13 18:37 | Emergency (ER) | payer OTHER, SELFPAY ==
[2021-01-13 18:40] VITALS: BP 148/80; PULSE 105; O2SAT 98
[2021-01-13 18:46] VITALS: BP 159/97; PULSE 120; RESP 16; TEMP 36.6; O2SAT 96; BMI 20.2
[2021-01-13 19:37] LABS: COVID-19 Test Negative (Negative); IDNOW Serial# 9DD0AD1C
[2021-01-13 20:03] LABS: Ethanol 380 mg/dL
--- NOTE | 2021-01-13 20:05 | ED.GENADULT ---
HPI - General Adult General Chief complaint: Psychiatric Symptoms Stated complaint: CRISIS,ETOH,SI Source: patient Mode of arrival: ambulatory Limitations: no limitations History of Present Illness HPI narrative: Patient presents to the ED for drinking alcohol. Patient is not depressed. Patient is not suicidal. Patient stable like to go home. States no psych complaints. Patient is not homicidal. Patient denies any auditory/visual hallucinations Related Data Home Medications Medication Instructions Recorded Confirmed melatonin 10 mg PO BEDTIME 08/25/20 08/25/20 ondansetron HCl 4 mg PO Q6H PRN 08/25/20 08/25/20 Allergies Allergy/AdvReac Type Severity Reaction Status Date / Time No Known Allergies Allergy Verified 05/30/20 11:27 [No Known Allergies*] Review of Systems Review of Systems: Yes all other systems are reviewed and are negative Constitutional: Constitutional: Reports as per HPI and Reports no additional constitutional complaints Eyes: Eyes: Reports as per HPI and Reports no additional eye complaints ENT: Reports system reviewed and no additional complaints, except as documented and Reports as per HPI Cardiovascular: Cardiovascular: Reports as per HPI and Reports no additional cardiovascular complaints Respiratory: Respiratory: Reports as per HPI and Reports no additional respiratory complaints Gastrointestinal: Gastrointestinal: Reports as per HPI and Reports no additional gastrointestinal complaints Genitourinary: Genitourinary: Reports no additional male genitourinary complaints and Reports as per HPI Musculoskeletal: Musculoskeletal: Reports no additional musculoskeletal complaints and Reports as per HPI Neurologic: Reports system reviewed and no additional complaints, except as documented and Reports as per HPI Psychiatric: Psychiatric: Reports no additional psychiatric complaints and Reports as per HPI PMF Past Medical History Medical History ETOH abuse Social History Social History Alcohol intake: current Alcohol intake frequency: 3 or more drinks per day Alcohol type: hard liquor Advance Directives: No Advance Directives Information Provided: No Physical Exam Vital Signs: Vital Signs: Last Vital Signs Temp 97.8 F 01/13/21 20:18 Pulse 96 01/13/21 20:18 Resp 18 01/13/21 20:18 BP 123/84 01/13/21 20:18 Pulse Ox 98 01/13/21 20:18 Body Mass Index 42.9 Const: General: cooperative, healthy appearing, comfortable, no acute distress, well developed, alert, awake and Physically active Orientation/consciousness: oriented to person, oriented to place, oriented to time and patient oriented x3 HENMT: Head: Yes normal to inspection, Yes No palpable skull fracture present, Yes normocephalic and Yes atraumatic Eyes: General: appearance normal, both eyes and all related structures Neck: Neck: Yes normal visual inspection, Yes full ROM, Yes no lymphadenopathy, Yes no meningeal signs, Yes trachea midline, Yes supple and No tender Chest: Chest palpation & inspection: normal inspection of the chest and normal palpation of entire chest wall Resp: Effort & Inspection: normal respiratory effort and able to speak in complete sentences Auscultation: clear to auscultation bilaterally Cardio: Jugular venous distension: no JVD Heart sounds: S1 normal heart sound present and S2 normal heart sound present GI: Inspection: Yes normal to inspection and No abdominal wall ecchymosis Palpation (GI): Soft to palpation, not firm, nontender and no guarding : General: No CVA tenderness and Yes no CVA tenderness Back/Spine/Pelvis: Back: no CVA tenderness, No CVA tenderness and No back tenderness Skin: General skin exam: no rashes or lesions noted and elasticity normal Neuro: General: oriented to person, oriented to place, oriented to time, patient oriented x3, gait normal, no meningeal signs and CN's II-XI intact bilaterally Extrem: General: Yes normal to inspection and Yes full ROM Psych: Appearance: grossly normal, well kempt and not disheveled Course Course Course Narrative: Will let patient sober up and than discharge. No crisis intervention indicated. Reevaluation(s) Reevaluation #1: Sister came to seed cone picker patient for a safe discharge home. Patient does not want any detox. Vital signs redone and improved Medical Decision Making Lab Data Labs: Lab Results 01/13/21 01/13/21 Range/Units 19:13 19:28 Ethyl Alcohol 380 H* mg/dL COVID-19 ([facility]) Negative (Negative) COVID-19 Clin Com See Note Discharge Plan Discharge Clinical Impression: Alcohol abuse Patient Disposition: Home, Self-Care Instructions: Abuse of Alcohol (ED) Additional Instructions: Return to the ED for any headache, dizziness, chest pain, abdominal pain, neck pain, shortness of breath, blood in stool, vomiting blood, dysuria, hematuria, flank pain, suicidal/homicidal, auditory/visual hallucinations, or any other concerning symptoms. Please follow-up with your PCP Prescriptions: No Action ondansetron HCl 4 mg tablet 4 mg PO Q6H PRN (Reason: nausea/vomiting) RF: 0 melatonin 5 mg tablet 10 mg PO BEDTIME RF: 0 Interventions: ED Discharge Assessment Last Done: 01/13/21 20:54 Discharge Date/Time: 01/13/21 21:24 Print Language: Faroese
[2021-01-13 20:18] VITALS: BP 123/84; PULSE 96; RESP 18; TEMP 36.6; O2SAT 98; BMI 42.9
== END 2021-01-13 21:24 | disposition home or self-care (01) ==
PROVIDERS: Physician Assistant; Emergency Provider Emergency Medicine
DX: F10.129 Alcohol abuse with intoxication, unspecified (principal); Y90.8 Blood alcohol level of 240 mg/100 ml or more; Z20.822 Contact with and (suspected) exposure to COVID-19; Z79.899 Other long term (current) drug therapy
CPT/HCPCS: 36415; 82077; 87635; 99283

== ENCOUNTER 2021-02-15 15:42 | Emergency (ER) | payer OTHER, SELFPAY ==
[2021-02-15 15:46] VITALS: BP 132/86; BP 135/91; PULSE 84; PULSE 96; RESP 18; TEMP 36.6; O2SAT 98; BMI 20.9
--- NOTE | 2021-02-15 15:48 | ED_ITS ---
HPI - Psych General Chief Complaint: Psychiatric Symptoms Stated Complaint: depression Time Seen by Provider: 02/15/21 15:47 History of Present Illness HPI Narrative: this is a 55 years old male frequent utilizer of the emergency department with history of alcohol abuse presented complaining of depression. He denies SI and HI. complaint: feels depressed Onset (ago): hour(s) (5) Duration: constant History of same: Yes Relieving factors: none Exacerbating factors: none Context: recent alcohol abuse Associated psychiatric symptoms: depression Related Data Home Medications Medication Instructions Recorded Confirmed melatonin 10 mg PO BEDTIME 08/25/20 08/25/20 ondansetron HCl 4 mg PO Q6H PRN 08/25/20 08/25/20 Allergies Allergy/AdvReac Type Severity Reaction Status Date / Time No Known Allergies Allergy Verified 05/30/20 11:27 [No Known Allergies*] Review of Systems Review of Systems: Yes all other systems are reviewed and are negative Cardiovascular: Cardiovascular: Reports no additional cardiovascular complaints, Denies chest pain and Denies chest pain at rest Respiratory: Respiratory: Reports no additional respiratory complaints Gastrointestinal: Gastrointestinal: Denies abdominal pain Neurologic: Reports system reviewed and no additional complaints, except as documented Psychiatric: Psychiatric: Reports depression [facility] Past Medical History Attestation statement: The following information was validated with the patient. Medical History ETOH abuse Social History Social History Alcohol intake: current Alcohol intake frequency: 3 or more drinks per day A lcohol type: hard liquor Patient Tobacco Use Status: Current everyday Tobacco user Use of substances other than those prescribed or required for medical reasons: No Physical Exam Vital Signs: Vital Signs: Last Vital Signs Temp 97.9 F 02/15/21 15:46 Pulse 84 02/15/21 15:46 Resp 18 02/15/21 15:46 BP 135/91 H 02/15/21 15:46 Pulse Ox 98 02/15/21 15:46 Body Mass Index 20.9 Const: General: cooperative, no acute distress and well developed Orientation/consciousness: oriented to person, oriented to place, oriented to time and patient oriented x3 HENMT: Head: Yes normal to inspection Face and sinus: Yes normal facial exam Eyes: General: appearance normal, both eyes and all related structures Neck: Neck: Yes full ROM and Yes no lymphadenopathy Chest: Chest palpation & inspection: normal inspection of the chest Resp: Effort & Inspection: normal respiratory effort Auscultation: clear to auscultation bilaterally Cardio: Jugular venous distension: no JVD Rate: regular rate Rhythm: regular rhythm GI: Inspection: Yes normal to inspection Palpation (GI): Soft to palpation, nontender and no guarding : General: Yes no CVA tenderness Back/Spine/Pelvis: Back: no CVA tenderness Skin: General skin exam: no rashes or lesions noted and elasticity normal Neuro: General: oriented to person, oriented to place, oriented to time and patient oriented x3 Extrem: General: Yes normal to inspection and Yes full ROM Course Reevaluation(s) Reevaluation #1: the patient does not need a psychiatric evaluation, his main problem is alcohol abuse. At this time his gait is stable, no ataxia, he was to be discharged,will give him detox list Discharge Plan Discharge Clinical Impression: Alcohol abuse Prescriptions: No Action ondansetron HCl 4 mg tablet 4 mg PO Q6H PRN (Reason: nausea/vomiting) RF: 0 melatonin 5 mg tablet 10 mg PO BEDTIME RF: 0
--- NOTE | 2021-02-15 15:53 | PC.NURSE ---
patient a&o, pt denies si/hi, pt states hes just sad over his dog, provider in room, vss, will continue to monitor.
== END 2021-02-15 16:13 | disposition home or self-care (01) ==
PROVIDERS: Emergency Provider Emergency Medicine; PCP Family Medicine
DX: F10.10 Alcohol abuse, uncomplicated (principal); F32.9 Major depressive disorder, single episode, unspecified; F17.210 Nicotine dependence, cigarettes, uncomplicated
CPT/HCPCS: 99282; 99284

== ENCOUNTER 2021-02-16 17:39 | Emergency (ER) | payer OTHER, SELFPAY ==
[2021-02-16 17:43] VITALS: BP 112/88; PULSE 84
[2021-02-16 17:45] VITALS: BP 118/70; PULSE 74; RESP 16; TEMP 37.1; O2SAT 97; BMI 22.4
--- NOTE | 2021-02-16 18:43 | ED_ITS ---
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 The patient tells me he feels depressed because his puppy recently and he also tends to drink lots of beer and when he drinks beer he feels depressed. He denies any suicidal or homicidal ideations. No physical complaints. He drinks approximately a 6-8 beers per day when he has money to buy it. He does not want detox. He denies any additional substance use. Related Data Home Medications Medication Instructions Recorded Confirmed melatonin 10 mg PO BEDTIME 08/25/20 08/25/20 ondansetron HCl 4 mg PO Q6H PRN 08/25/20 08/25/20 Allergies Allergy/AdvReac Type Severity Reaction Status Date / Time No Known Allergies Allergy Verified 05/30/20 11:27 [No Known Allergies*] Review of Systems Review of Systems: Yes all other systems are reviewed and are negative Constitutional: Constitutional: Reports no additional constitutional complaints, Denies body ache(s), Denies chills, Denies fever(s), Denies headache (s) and Denies weakness Eyes: Eyes: Reports no additional eye complaints and Denies change in vision ENT: Reports system reviewed and no additional complaints, except as documented, Denies dizziness, Denies headache(s), Denies nasal congestion, Denies nasal discharge and Denies neck pain Cardiovascular: Cardiovascular: Reports no additional cardiovascular complaints, Denies chest pain, Denies leg edema and Denies dyspnea Respiratory: Respiratory: Reports no additional respiratory complaints, Denies cough and Denies dyspnea Gastrointestinal: Gastrointestinal: Reports no additional gastrointestinal complaints, Denies abdominal pain, Denies diarrhea, Denies nausea and Denies vomiting Genitourinary: Genitourinary: Denies urinary incontinence Musculoskeletal: Musculoskeletal: Reports no additional musculoskeletal complaints, Denies back pain, Denies arthralgias, Denies joint swelling, Denies neck pain, Denies numbness and Denies tingling Integumentary/Breasts: Skin/Breast: Reports system reviewed and no additional complaints, except as docu and Denies rash Neurologic: Reports system reviewed and no additional complaints, except as documented, Denies Abnormal speech present, Denies dizziness, Denies headache(s), Denies numbness, Denies tingling and Denies weakness PMFSH Past Medical History Attestation statement: The following information was validated with the patient. Source: old records reviewed Medical History ETOH abuse Social History Social History Alcohol intake: current Alcohol intake frequency: 3 or more drinks per day Alcohol type: hard liquor Patient Tobacco Use Status: Current everyday Tobacco user Advance Directives: No Advance Directives Information Provided: Yes Physical Exam Vital Signs: Vital Signs: Last Vital Signs Temp 98.7 F 02/16/21 17:45 Pulse 74 02/16/21 17:45 Resp 16 02/16/21 17:45 BP 118/70 02/16/21 17:45 Pulse Ox 97 02/16/21 17:45 Body Mass Index 22.4 Const: General: cooperative, healthy appearing, comfortable and no acute distress Orientation/consciousness: patient oriented x3 Limitations: no limitations HENMT: Head: Yes normal to inspection Ears: hearing grossly normal bilaterally General nose exam: Normal external nose present Face and sinus: Yes normal facial exam Mouth: Normal oral and palatal mucosa present Throat: Yes posterior oropharynx normal Eyes: General: appearance normal, both eyes and all related structures Pupils: Equal, round and reactive pupils present Neck: Neck: Yes normal visual inspection Chest: Chest palpation & inspection: normal inspection of the chest Resp: Effort & Inspection: normal respiratory effort Auscultation: clear to auscultation bilaterally Cardio: Rate: regular rate Rhythm: regular rhythm Peripheral pulses: Peripheral pulses 2+ throughout GI: Inspection: Yes normal to inspection Palpation (GI): Soft to palpation and nontender Auscultation: normal bowel sounds Back/Spine/Pelvis: Thoracic/Lumbar Spine: thoracic and lumbar spine normal to inspection Skin: General skin exam: no rashes or lesions noted Neuro: General: patient oriented x3, no focal motor deficits and normal sensation to monofilament Cranial nerves: Yes Equal, round and reactive pupils present Cognition (Neuro): normal cognition Speech: No Abnormal speech present Gait exam (Neuro): Normal gait present Motor exam (neuro): 5/5 motor strength present throughout Extrem: General: Yes normal to inspection, Yes no pedal edema and Yes no calf tenderness Course Course Course Narrative: 55-year-old male here with reports of depression after drinking several beers at home. He does not have any suicidal ideations and when I evaluate the patient he tells me he is actually feeling improved. I offered for him to speak to our crisis workers but he declined this. I also offered detox which he declined. He has no physical complaints. His vital signs are stable. He walks with a steady gait and is clinically sober. Reviewed worrisome signs and symptoms and when to return to the emergency department. Comfortable discharge home. [facility] - Alcohol Medical Records Attestation: I reviewed the patient's medical records. Lab Data Attestation: I reviewed the patient's lab results. Discharge Plan Discharge Clinical Impression: Alcoholic intoxication Patient Disposition: Home, Self-Care Instructions: Alcohol Intoxication (ED) Prescriptions: No Action ondansetron HCl 4 mg tablet 4 mg PO Q6H PRN (Reason: nausea/vomiting) RF: 0 melatonin 5 mg tablet 10 mg PO BEDTIME RF: 0 Referrals: Physician,Unknown [Primary Care Provider] - 2 days Interventions: ED Discharge Assessment Last Done: 02/16/21 18:10 Discharge Date/Time: 02/16/21 18:10
== END 2021-02-16 18:10 | disposition home or self-care (01) ==
PROVIDERS: Emergency Provider Emergency Medicine
DX: F10.129 Alcohol abuse with intoxication, unspecified (principal)
CPT/HCPCS: 99283

== ENCOUNTER 2021-03-21 18:32 | Emergency (ER) | payer OTHER, SELFPAY ==
[2021-03-21 18:39] VITALS: BP 126/78; PULSE 88; RESP 18; TEMP 36.8; O2SAT 98; BMI 20.5
[2021-03-21] MEDS: Tetracaine HCl/PF 0.5% Oph Sol 4 ML DROPS 1 DROP EYE-BOTH (19:54)
[2021-03-21] MEDS: Fluorescein Sodium STRIP 1 STRIP EYE-BOTH (19:54)
--- NOTE | 2021-03-21 20:07 | ED.EYEPROB ---
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 No injury or trauma. No pain. No discharge, irritation or drainage. No fevers or chills. Related Data Home Medications Medication Instructions Recorded Confirmed melatonin 5 mg tablet 10 mg PO BEDTIME 08/25/20 08/25/20 ondansetron HCl 4 mg tablet 4 mg PO Q6H PRN 08/25/20 08/25/20 Allergies Allergy/AdvReac Type Severity Reaction Status Date / Time No Known Allergies Allergy Verified 05/30/20 11:27 [No Known Allergies*] Review of Systems Review of Systems: Yes all other systems are reviewed and are negative Constitutional: Constitutional: Reports no additional constitutional complaints, Denies body ache(s), Denies chills, Denies fever(s), Denies headache(s) and Denies weakness Eyes: Eyes: Reports no additional eye complaints, Reports blurry vision, Denies change in vision, Denies eye discharge, Denies irritation, Denies eye pain and Denies photophobia ENT: Reports system reviewed and no additional complaints, except as documented, Denies dizziness, Denies headache(s), Denies nasal congestion, Denies nasal discharge and Denies neck pain Cardiovascular: Cardiovascular: Reports no additional cardiovascular complaints, Denies chest pain, Denies leg edema and Denies dyspnea Respiratory: Respiratory: Reports no additional respiratory complaints, Denies cough and Denies dyspnea Gastrointestinal: Gastrointestinal: Reports no additional gastrointestinal complaints, Denies abdominal pain, Denies diarrhea, Denies nausea and Denies vomiting Genitourinary: Genitourinary: Denies urinary incontinence Musculoskeletal: Musculoskeletal: Reports no additional musculoskeletal complaints, Denies back pain, Denies arthralgias, Denies joint swelling, Denies neck pain, Denies numbness and Denies tingling Integumentary/Breasts: Skin/Breast: Reports system reviewed and no additional complaints, except as docu and Denies rash Neurologic: Reports system reviewed and no additional complaints, except as documented, Denies Abnormal speech present, Denies dizziness, Denies headache(s), Denies numbness, Denies tingling and Denies weakness REPLACED BY [facility] Past Medical History Attestation statement: The following information was validated with the patient. Source: old records reviewed and nursing notes reviewed Medical History ETOH abuse Social History Social History Alcohol intake: current Alcohol intake frequency: 3 or more drinks per day Alcohol type: hard liquor Patient Tobacco Use Status: Current everyday Tobacco user Advance Directives: No Physical Exam Vital Signs: Vital Signs: Last Vital Signs Temp 98.2 F 03/21/21 18:39 Pulse 88 03/21/21 18:39 Resp 18 03/21/21 18:39 BP 126/78 03/21/21 18:39 Pulse Ox 98 03/21/21 18:39 Body Mass Index 20.5 Const: General: cooperative, healthy appearing, comfortable and no acute distress Orientation/consciousness: patient oriented x3 Limitations: no limitations HENMT: Head: Yes normal to inspection Ears: hearing grossly normal bilaterally and TM's normal bilaterally General nose exam: Normal external nose present Face and sinus: Yes normal facial exam Mouth: Normal oral and palatal mucosa present Throat: Yes posterior oropharynx normal Eyes: Other: IOP right/left 14 Fluorescein used with no corneal FB or abrasion. No pain reported during entire exam. White reflex obscuring the left anterior/posterior chamber. See visual acuity documented by nursing, General: appearance normal, both eyes and all related structures Alignment and Position: alignment normal Periorbital: periorbital findings normal Eyelids: Yes eyelids normal Conjunctivae: conjunctivae normal Sclerae: sclerae normal Corneas: corneas normal Pupils: Equal, round and reactive pupils present and Other pupil findings (white reflex to left eye. Unable to visualize the anterior/posterior chamb) EOM: EOMs intact bilaterally Direct Ophthalmoscopy: no photophobia and No photophobia Neck: Neck: Yes normal visual inspection Chest: Chest palpation & inspection: normal inspection of the chest Resp: Effort & Inspection: normal respiratory effort Auscultation: clear to auscultation bilaterally Cardio: Rate: regular rate Rhythm: regular rhythm Peripheral pulses: Peripheral pulses 2+ throughout GI: Inspection: Yes normal to inspection Palpation (GI): Soft to palpation and nontender Auscultation: normal bowel sounds Back/Spine/Pelvis: Thoracic/Lumbar Spine: thoracic and lumbar spine normal to inspection Skin: General skin exam: no rashes or lesions noted Neuro: General: patient oriented x3, no focal motor deficits and normal sensation to monofilament Cranial nerves: Yes Equal, round and reactive pupils present Cognition (Neuro): normal cognition Speech: No Abnormal speech present Gait exam (Neuro): Normal gait present Motor exam (neuro): 5/5 motor strength present throughout Extrem: General: Yes normal to inspection Course Course Course Narrative: Painless blurry vision to the left eye for greater than 6 weeks. Exam is consistent with cataract. Pressures are normal. No obvious foreign body or abrasion. Will refer patient to Ophthalmology for follow-up as desired. Reviewed worrisome signs and symptoms and when to return to the emergency department. Comfortable discharge home. Case discussed with Dr. Liriano. MDM - Eye Problem Differential Diagnosis Differential diagnosis: Likely corneal abrasion, conjunctivitis and glaucoma Medical Records Attestation: I reviewed the patient's medical records. Lab Data Attestation: I reviewed the patient's lab results. Discharge Plan Discharge Clinical Impression: Cataract Qualifiers: Cataract type: age-related Laterality: left Patient Disposition: Home, Self-Care Instructions: Cataracts (ED) Prescriptions: No Action ondansetron HCl 4 mg tablet 4 mg PO Q6H PRN (Reason: nausea/vomiting) RF: 0 melatonin 5 mg tablet 10 mg PO BEDTIME RF: 0 Referrals: Jim Diaz [Physician] - 2 days Interventions: ED Discharge Assessment Last Done: 03/21/21 20:27 Discharge Date/Time: 03/21/21 20:28 Print Language: Croatian
== END 2021-03-21 20:28 | disposition home or self-care (01) ==
PROVIDERS: Emergency Provider Internal Medicine; PCP Family Medicine
DX: H25.9 Unspecified age-related cataract (principal); H53.8 Other visual disturbances
CPT/HCPCS: 99283

== ENCOUNTER 2021-03-25 13:54 | Emergency (ER) | payer OTHER, SELFPAY ==
[2021-03-25 13:56] VITALS: BP 140/86; PULSE 100; O2SAT 97
[2021-03-25 14:05] VITALS: BP 143/67; PULSE 98; RESP 18; TEMP 37.1; O2SAT 97; BMI 26.6
--- NOTE | 2021-03-25 14:57 | ED.ALCOHOL ---
HPI - Alcohol General Chief Complaint: ETOH/Substance Use Stated Complaint: ETOH/DEP Time Seen by Provider: 03/25/21 14:57 Source: patient Mode of arrival: ambulatory Limitations: no limitations History of Present Illness HPI narrative: Patient came to the emergency room, he was brought by EMS because his neighbors called 911 for noise disturbance. Patient states he feels well, offers no complaints, admits to using alcohol this morning. Patient is ambulatory, has steady gait, requesting to eat and drink. Related Data Home Medications Medication Instructions Recorded Confirmed melatonin 5 mg tablet 10 mg PO BEDTIME 08/25/20 08/25/20 ondansetron HCl 4 mg tablet 4 mg PO Q6H PRN 08/25/20 08/25/20 Allergies Allergy/AdvReac Type Severity Reaction Status Date / Time No Known Allergies Allergy Verified 05/30/20 11:27 [No Known Allergies*] Review of Systems Review of Systems: Constitutional : No Weight loss, No Fever, No Chills, No Night Sweats, No Fatigue, No Malaise ENT/Mouth : No Hearing loss, No Ear Pain, No Nasal Congestion, No Sinus Pain, No Hoarseness, No sore throat, No Rhinorrhea, No Swallowing Difficulty Eyes: No Eye Pain, No Swelling, No Redness, No Foreign Body, No Discharge, No Vision Changes Cardiovascular : No Chest Pain, No SOB, No Dyspnea on Exertion, No Orthopnea, No Edema, No Palpitations Respiratory : No Cough, No Sputum, No Wheezing, No Smoke Exposure, No Dyspnea Gastrointestinal : No Nausea, No Vomiting, No Diarrhea, No Constipation, No abdominal Pain, No Hematochezia, No Melena Genitourinary : no irregular bleeding, No Dysuria, No Urinary Frequency, No Hematuria, No Urinary Incontinence, No Urgency, No Flank Pain, No Urinary Flow Changes, No Hesitancy Musculoskeletal : No joint pain, No Myalgias, No Joint Swelling Skin : No Skin Lesions, No rash Neuro : No Weakness, No Numbness, No Paresthesias, No Loss of Consciousness, No Dizziness, No Headache Psych : No Anxiety/Panic, No Depression, No SI/HI/AH/VH, No Social Issues, Heme/Lymph: No Bruising, No Bleeding,No Lymphadenopathy Endocrine : No Polyuria, No Polydipsia, No Temperature Intolerance PMFSH Past Medical History Medical History ETOH abuse Social History Social History Alcohol intake: current Alcohol intake frequency: 3 or more drinks per day Alcohol type: hard liquor Patient Tobacco Use Status: Current everyday Tobacco user Advance Directives: No Advance Directives Information Provided: No Physical Exam Vital Signs: Vital Signs: Last Vital Signs Temp 98.7 F 03/25/21 14:05 Pulse 98 03/25/21 14:05 Resp 18 03/25/21 14:05 BP 143/67 H 03/25/21 14:05 Pulse Ox 97 03/25/21 14:05 Body Mass Index 26.6 Const: Other: Appearance: Alert. Oriented X3. No acute distress. Intoxicated, making monkey sounds , patient is intoxicated with a steady gait, cooperative, gets agitated at times Eyes: Pupils equal, round and reactive to light. ENT: Pharynx normal. Neck: Normal inspection. Neck supple. No lymph nodes noted. No crepitus CVS: Normal heart rate and rhythm. Pulses normal. Normal S1 and S2 Respiratory: No respiratory distress. Breath sounds normal. No Wheezing. No rales Abdomen: Soft and nontender. No rigidity. No distention. good BS x4 Skin: Skin warm and dry. Normal skin color. Normal skin turgor. Extremities: No lower extremity edema. No lower extremity edema. No Lacerations. No Rash Neuro: Oriented X 3. Cranial nerves 2-12 grossly intact Course Course Course Narrative: I was informed by the patient's nurse that the patient wanted to leave as soon as possible because he left his apartment door unlocked, and was afraid that somebody was going to going to his apartment and steal his television. When I went to re-evaluate the patient, he was not in his chair, we cannot longer find him in the emergency room, seems that patient eloped Discharge Plan Discharge Clinical Impression: Alcoholic intoxication Patient Disposition: Elopement Prescriptions: No Action ondansetron HCl 4 mg tablet 4 mg PO Q6H PRN (Reason: nausea/vomiting) RF: 0 melatonin 5 mg tablet 10 mg PO BEDTIME RF: 0 Interventions: ED Discharge Assessment Last Done: 03/25/21 15:07 Discharge Date/Time: 03/25/21 15:08
== END 2021-03-25 15:08 | disposition left against medical advice (07) ==
PROVIDERS: Emergency Provider Emergency Medicine; PCP Family Medicine
DX: F10.129 Alcohol abuse with intoxication, unspecified (principal); Y90.9 Presence of alcohol in blood, level not specified
CPT/HCPCS: 99282; 99283

== ENCOUNTER 2021-05-04 11:10 | Emergency (ER) | payer OTHER, SELFPAY ==
[2021-05-04 11:19] VITALS: BP 126/88; BP 138/68; PULSE 82; PULSE 92; RESP 18; TEMP 36.7; O2SAT 95; O2SAT 97; BMI 21.1
--- NOTE | 2021-05-04 13:08 | ED_ITS ---
HPI - General Adult General Chief complaint: General Medical Stated complaint: FEELS ILL S/P DRINKING BEER LAST NIGHT Time Seen by Provider: 05/04/21 13:08 History of Present Illness HPI narrative: Patient history EtOH presented after drinking 18 cans of beer. Has no specific complaints. No cough no congestion or upper respiratory symptoms Related Data Home Medications Medication Instructions Recorded Confirmed melatonin 5 mg tablet 10 mg PO BEDTIME 08/25/20 08/25/20 ondansetron HCl 4 mg tablet 4 mg PO Q6H PRN 08/25/20 08/25/20 Allergies Allergy/AdvReac Type Severity Reaction Status Date / Time No Known Allergies Allergy Verified 05/30/20 11:27 [No Known Allergies*] Review of Systems Review of Systems: No fever no chills no chest pain or shortness breath no diaphoresis Yes all other systems are reviewed and are negative [facility] Past Medical History Attestation statement: The following information was validated with the patient. Medical History ETOH abuse Social History Social History Alcohol intake: current Alcohol intake frequency: 3 or more drinks per day Alcohol type: hard liquor Patient Tobacco Use Status: Current everyday Tobacco user Advance Directives: No Advance Directives Information Provided: No Physical Exam Vital Signs: Vital Signs: Last Vital Signs Temp 98.1 F 05/04/21 11:19 Pulse 82 05/04/21 11:19 Resp 18 05/04/21 11:19 BP 138/68 05/04/21 11:19 Pulse Ox 95 05/04/21 11:19 Body Mass Index 21.1 Appearance: Alert. Oriented X3. No acute distress. Eyes: Pupils equal, round and reactive to light. ENT: Pharynx normal. Neck: Normal inspection. Neck supple. No lymph nodes noted. No crepitus CVS: Normal heart rate and rhythm. Pulses normal. Normal S1 and S2 Respiratory: No respiratory distress. Breath sounds normal. No Wheezing. No rales Abdomen: Soft and nontender. No rigidity. No distention. good BS x4 Skin: Skin warm and dry. Normal skin color. Normal skin turgor. Extremities: No lower extremity edema. Neurovascular intact to all extremities. No Lacerations. No Rash Neuro: Oriented X 3. No motor deficit. No sensory deficit. Moving all extermities. No slurred speech Discharge Plan Discharge Clinical Impression: Alcohol intoxication Patient Disposition: Home, Self-Care Instructions: Alcohol Intoxication (ED) Prescriptions: No Action ondansetron HCl 4 mg tablet 4 mg PO Q6H PRN (Reason: nausea/vomiting) RF: 0 melatonin 5 mg tablet 10 mg PO BEDTIME RF: 0 Referrals: Candy London DO [Primary Care Provider] - 2 days
[2021-05-04] MEDS: Ondansetron ODT 4 MG TAB.RAPDIS TRANSLINGU (13:09)
--- NOTE | 2021-05-04 13:10 | PC.NURSE ---
Pt reporting nausea. Given SL zofran
--- NOTE | 2021-05-04 14:36 | MHC.RECOVSUP ---
Recovery Support note: Patient is a 56 year old [place]itanian speaking male who presented to [facility] ED via EMS due to not feeling well after consuming alcohol yesterday. Patient is known to this communications writer from previous consultations. This communications writer met with patient to discuss his alcohol use and recovery supports. Patient reports he was doing well and not drinking for a period of time however started up again around [facility]. Discussed with patient the negative effect alcohol has on his health and patient acknowledged. Patient reports he plans to stop drinking again. Patient has found AA meetings helpful in the past and he reports he plans to attend meetings again. Patient declined additional resources. Encouraged patient to reach out to staff if he needs anything while here.
--- NOTE | 2021-05-04 18:16 | PC.NURSE ---
Pt rested during his visit. Calm and cooperative. He is alert and oriented x3 and able to ambulate with a steady gait. Food provided. Plan is for discharge.
[2021-05-04 18:31] VITALS: BP 139/75; PULSE 100; RESP 18; O2SAT 96
== END 2021-05-04 18:32 | disposition home or self-care (01) ==
PROVIDERS: Emergency Provider Emergency Medicine Emergency Medical Services; PCP Family Medicine
DX: F10.129 Alcohol abuse with intoxication, unspecified (principal); Y90.9 Presence of alcohol in blood, level not specified; Z79.899 Other long term (current) drug therapy; F17.200 Nicotine dependence, unspecified, uncomplicated; Z71.6 Tobacco abuse counseling
CPT/HCPCS: 99283

== ENCOUNTER 2021-12-29 12:44 | Emergency (ER) | payer OTHER, SELFPAY ==
[2021-12-29 12:51] VITALS: BP 160/100; PULSE 88; O2SAT 98
[2021-12-29 12:55] VITALS: BP 139/89; PULSE 87; RESP 18; TEMP 36.6; O2SAT 94; BMI 21.4
--- NOTE | 2021-12-29 13:06 | ED_ITS ---
HPI - Psych General Chief Complaint: Psychiatric Symptoms Stated Complaint: DEPRESSION Time Seen by Provider: 12/29/21 12:54 Source: patient Mode of arrival: EMS Limitations: no limitations History of Present Illness HPI Narrative: 56-year-old male who is well-known to the emergency department who is complaining of depression. The patient is seen frequently for alcohol use disorder. Patient states that he was drinking today and drink at least 24 hour oz of beer. He states that he has been depressed for approximately 3 days. He states that he has been crying and has been feeling sad. He states that his fa austen was concerned about his depression and told him to go to the emergency department for evaluation therefore the patient called an ambulance. He denies being suicidal or homicidal. At the time of my evaluation, he states that he is feeling better and he wants to leave. He does not want any testing he does not want to talk to a crisis counselor. The patient states that he has a counselor at [facility] for his depression. complaint: feels depressed Onset (ago): day(s) (3) Duration: constant History of same: Yes Relieving factors: none Exacerbating factors: alcohol Context: recent alcohol abuse Associated psychiatric symptoms: depression Associated symptoms: denies other symptoms Treatments prior to arrival: none Related Data Home Medications Medication Instructions Recorded Confirmed melatonin 5 mg tablet 10 mg PO BEDTIME 08/25/20 08/25/20 ondansetron HCl 4 mg tablet 4 mg PO Q6H PRN 08/25/20 08/25/20 Allergies Allergy/AdvReac Type Severity Reaction Status Date / Time No Known Allergies Allergy Verified 12/29/21 12:55 [No Known Allergies*] [facility] Past Medical History [facility] Narrative: Past medical history: Alcohol use disorder. Past surgical history: None. Social history: He smokes 1/2 pack of cigarettes per day times many years. He states that he drinks beer daily. He admits to drinking at least 24 oz of beer today. He denies drug use. Medical History ETOH abuse Social History Social History Alcohol intake: current Alcohol intake frequency: 3 or more drinks per day Alcohol type: hard liquor Patient Tobacco Use Status: Current everyday Tobacco user Advance Directives: No Advance Directives Information Provided: No Physical Exam Vital Signs: Vital Signs: Last Vital Signs Temp 97.9 F 12/29/21 12:55 Pulse 87 12/29/21 12:55 Resp 18 12/29/21 12:55 BP 139/89 12/29/21 12:55 Pulse Ox 94 12/29/21 12:55 BMI result Body Mass Index 21.4 Const: General: cooperative and no acute distress Orientation/consciousness: oriented to person and oriented to place Limitations: no limitations HEENT: Head: Yes normal to inspection, Yes normocephalic and Yes atraumatic Ears: external ears normal General nose exam: Normal external nose present Face and sinus: Yes normal facial exam Mouth: Normal oral and palatal mucosa present Throat: Yes posterior oropharynx normal Eyes: General: appearance normal, both eyes and all related structures Pupils: Equal, round and reactive pupils present Neck: Neck: Yes normal visual inspection, Yes no lymphadenopathy, Yes trachea midline and Yes supple Chest: Chest palpation & inspection: normal inspection of the chest and normal palpation of entire chest wall Resp: Effort & Inspection: normal respiratory effort and able to speak in complete sentences Auscultation: clear to auscultation bilaterally Cardio: Rate: regular rate Rhythm: regular rhythm Heart sounds: S1 normal heart sound present, S2 normal heart sound present and no murmurs GI: Inspection: Yes normal to inspection Palpation (GI): Soft to palpation, nontender and no guarding Auscultation: normal bowel sounds : General: Yes no CVA tenderness Back/Spine/Pelvis: Back: no CVA tenderness Skin: General skin exam: no rashes or lesions noted Neuro: General: oriented to person and oriented to place Cranial nerves: Yes CN's II-XII intact bilaterally and Yes Equal, round and reactive pupils present Cognition (Neuro): normal cognition Motor exam (neuro): 5/5 motor strength present throughout Extrem: General: Yes normal to inspection Psych: Appearance: grossly normal Speech and movement: Normal speech and movement present Affect: normal affect Attitude: cooperative Thought process: Normal thought process present Thought content: Normal thought content present Course Course Course Narrative: 56-year-old male with a history of alcohol use disorder, seen frequently here in the emergency department who presents today for evaluation of depression x3 days. He states that he has been crying and has been feeling very depressed. He denied being suicidal or homicidal. At the time of my evaluation he states that he is feeling better and he does not want to talk to a crisis counselor and does not want lab testing. Vital signs were normal. physical examination was unremarkable. Patient was discharged home with printed and verbal instructions on depression and advised to follow-up with his counselor. Discharge Plan Discharge Clinical Impression: Depression, Alcohol use Patient Disposition: Home, Self-Care Instructions: Depression (ED) Additional Instructions: Follow-up with your counselor at [facility] to discuss your depression and further treatment. Follow-up with your doctor in 2 days. Please return to the emergency department if your symptoms get worse or if you develop any symptoms that are concerning to you. Prescriptions: No Action ondansetron HCl 4 mg tablet 4 mg PO Q6H PRN (Reason: nausea/vomiting) 0RF melatonin 5 mg tablet 10 mg PO BEDTIME 0RF
== END 2021-12-29 13:21 | disposition home or self-care (01) ==
PROVIDERS: Emergency Provider Emergency Medicine Emergency Medical Services; PCP Family Medicine
DX: F33.1 Major depressive disorder, recurrent, moderate (principal); F10.10 Alcohol abuse, uncomplicated; F17.210 Nicotine dependence, cigarettes, uncomplicated; Z71.6 Tobacco abuse counseling; Y90.9 Presence of alcohol in blood, level not specified
CPT/HCPCS: 99282

== ENCOUNTER 2022-01-23 15:25 | Emergency (ER) | payer OTHER, SELFPAY ==
--- NOTE | ~2022-01-23 | CT_ITS ---
EXAMINATION: CT HEAD WITHOUT CONTRAST CT CERVICAL SPINE WITHOUT CONTRAST CLINICAL INFORMATION: 56-year-old male with trauma, ethanol abuse COMPARISON: 04/18/2020 TECHNIQUE: Examination limited due to motion CT of the head and cervical spine were performed without intravenous contrast. Multiplanar reformats were rendered and reviewed. This CT examination was performed using dose optimization techniques as appropriate, variously including the following: *Automated exposure control *Adjustment of mA and/or kV according to patient size (this includes techniques or standardized protocols for targeted exams where dose is matched to indication/reason for exam; i.e. extremities or head) *Use of iterative reconstruction technique DLP: 1010 mGy-cm. 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 There are patchy periventricular white matter changes as a sequela of microangiopathy No intracranial hemorrhage, large infarction, or mass lesion is seen. No extra-axial collection is appreciated. The ventricles are normal in size and configuration without evidence of hydrocephalus. There is The visualized paranasal sinuses and mastoid air cells are clear. CT cervical spine: The cervical alignment is normal. The craniocervical junction is normal. The vertebral body heights are maintained. No cervical spine fracture is seen. The paraspinal soft tissues are within normal limits. The partially imaged lung apices are clear. CT/CT head/brain wo con IMPRESSION: Technically limited examination CT head: No acute intracranial finding. 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
--- NOTE | ~2022-01-23 | CT_ITS ---
EXAMINATION: CT HEAD WITHOUT CONTRAST CT CERVICAL SPINE WITHOUT CONTRAST CLINICAL INFORMATION: 56-year-old male with trauma, ethanol abuse COMPARISON: 04/18/2020 TECHNIQUE: Examination limited due to motion CT of the head and cervical spine were performed without intravenous contrast. Multiplanar reformats were rendered and reviewed. This CT examination was performed using dose optimization techniques as appropriate, variously including the following: *Automated exposure control *Adjustment of mA and/or kV according to patient size (this includes techniques or standardized protocols for targeted exams where dose is matched to indication/reason for exam; i.e. extremities or head) *Use of iterative reconstruction technique DLP: 1010 mGy-cm. 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 There are patchy periventricular white matter changes as a sequela of microangiopathy No intracranial hemorrhage, large infarction, or mass lesion is seen. No extra-axial collection is appreciated. The ventricles are normal in size and configuration without evidence of hydrocephalus. There is The visualized paranasal sinuses and mastoid air cells are clear. CT cervical spine: The cervical alignment is normal. The craniocervical junction is normal. The vertebral body heights are maintained. No cervical spine fracture is seen. The paraspinal soft tissues are within normal limits. The partially imaged lung apices are clear. CT/CT cervical spine wo con IMPRESSION: Technically limited examination CT head: No acute intracranial finding. 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
[2022-01-23 15:36] VITALS: BP 128/87; PULSE 100; RESP 16; TEMP 36.5; O2SAT 94
[2022-01-23 15:40] VITALS: BP 130/90; PULSE 80; BMI 34.0
--- NOTE | 2022-01-23 16:05 | ECG_ITS ---
Test Reason : FALL Blood Pressure : / mmHG Vent. Rate : 084 BPM Atrial Rate : 084 BPM P-R Int : 132 ms QRS Dur : 094 ms QT Int : 370 ms P-R-T Axes : 069 059 066 degrees QTc Int : 437 ms Normal sinus rhythm Normal ECG When compared with ECG of 16-SEP-2020 03:39, No significant change was found Referred By: Rachel Thomas Electronically Signed By:JACLYN HICKEY
--- NOTE | 2022-01-23 17:00 | ED_ITS ---
HPI - Fall General Chief Complaint: Fall Stated Complaint: fall/etoh Time Seen by Provider: 01/23/22 15:58 Source: patient and EMS Mode of arrival: EMS Limitations: altered mental status History of Present Illness HPI Narrative: Patient presents to the emergency department via EMS. He was found prone on the sidewalk when EMS arrived. Endorsing ETOH usage, patient placed on a hard backboard and Walker C-spine collar and brought to the emergency department. Patient with no complaints. Related Data Home Medications Medication Instructions Recorded Confirmed melatonin 5 mg tablet 10 mg PO BEDTIME 08/25/20 08/25/20 ondansetron HCl 4 mg tablet 4 mg PO Q6H PRN nausea/vomiting 08/25/20 08/25/20 Allergies Allergy/AdvReac Type Severity Reaction Status Date / Time No Known Allergies Allergy Verified 12/29/21 12:55 [No Known Allergies*] Review of Systems Review of Systems: Yes Unobtainable due to mental status PMFSH Past Medical History Attestation statement: The following information was validated with the patient. Source: old records reviewed Medical History ETOH abuse Social History Social History Alcohol intake: current Alcohol intake frequency: 3 or more drinks per day Alcohol type: hard liquor Patient Tobacco Use Status: Never used Tobacco Use of substances other than those prescribed or required for medical reasons: Unknown Advance Directives: No Advance Directives Information Provided: No Physical Exam Vital Signs: Vital Signs: Last Vital Signs Temp 98.1 F 01/23/22 19:11 Pulse 92 01/23/22 19:11 Resp 16 01/23/22 19:11 BP 128/81 01/23/22 19:11 Pulse Ox 97 01/23/22 19:11 O2 Del Method 01/23/22 19:11 BMI result Body Mass Index 34.0 Vital signs have been reviewed as normal and appeared to be correct. Blood pressure normal.? Heart rate normal.? Respiration rate normal. Temperature normal.? Oxygen saturation normal. Appearance: Alert.? Oriented only to person, intoxicated. Eyes: Pupils equal, round and reactive to light.? 2 mm bilaterally. ENT: Pharynx normal.?? Neck: Normal inspection.? Neck supple. Hard C-spine collar in place Back: No palpable midline thoracic or lumbar spine tenderness, step-offs, deformities. ? CVS: Heart sounds normal. Normal heart rate and rhythm.? Pulses normal.?? Respiratory: No respiratory distress.? Lung sounds clear to auscultation bilaterally?? Abdomen: Soft and non-tender. Normoactive bowel sounds. No pulsatile mass.?? Skin: Skin warm and dry.? Normal skin color.? ? Extremities: No lower extremity edema.? No calf ttp? Neuro: Moves all extremities spontaneously. Sensation intact bilaterally. CN II- XII intact. No focal neuro deficits. Course Course Course Narrative: Patient is a 56-year-old male with past medical history of alcohol use disorder presenting to emergency department after being found down on the ground. Unable to obtain history from patient due to alcohol intoxication. Will obtain CT of the head and cervical spine to exclude ICH/SAH, fracture subluxation. CBC, CMP, ethanol level, drug of abuse screen, EKG and troponin. Patient is hemodynamically stable. Responding to questions but disoriented. Change into a hospital attire. Will continue to monitor. Reevaluation(s) Reevaluation #1: EKG reveals normal sinus rhythm, no acute ischemic changes, troponin 8.5 Alcohol level 411. Patient currently resting comfortably on stretcher, no acute complaints. Time: 17:52 Reevaluation #2: CT of the cervical spine without acute findings, head CT with no ICH/SAH, sooner infarct in right basal ganglia consistent with prior CT of the brain obtained in April 2020. Patient easily arousable, verbal. Continues to have no complaints. Hard C-spine collar cleared at this time. Patient placed in physician observation as he will require more time for clinical sobriety. Hemodynamically stable. no apparent distress. Time: 19:15 Reevaluation #3: Patient signed out to Dr. Gore, pending re-evaluation once sober. Time: 21:10 MDM - Fall Medical Records Attestation: I reviewed the patient's medical records. Lab Data Attestation: I reviewed the patient's lab results. Result diagrams: 01/23/22 17:06 01/23/22 17:06 Labs: Lab Results 01/23/22 01/23/22 01/23/22 Range/Units 17:06 17:06 17:06 WBC 4.0 L (4.8-10.8) X10*3/uL RBC 4.71 (4.60-5.80) X10*6/uL Hgb 13.3 L (14.0-18.0) g/dl Hct 40.5 L (42.0-52.0) % MCV 86.0 (80.0-98.0) fL MCH 28.2 (27.0-33.0) pg MCHC 32.8 (31.0-36.0) g/dl RDW 14.3 (11.0-16.0) % Plt Count 133 L (160-400) X10*3/uL MPV 9.4 (9.4-12.4) fL Immature Gran % (Auto) 0.0 (0.0-0.4) % Neut % (Auto) 58.1 (45-73) % Lymph % (Auto) 31.8 (20-40) % [place] % (Auto) 8.9 (2-11) % Eos % (Auto) 0.5 (0-4) % Baso % (Auto) 0.7 (0-2) % Lymph # (Auto) 1.3 (1.2-4.9) X10*3/uL [place] # (Auto) 0.4 (0.1-1.2) X10*3/uL Eos # (Auto) 0.0 (0.0-0.4) X10*3/uL Baso # (Auto) 0.0 (0.0-0.2) X10*3/uL Abs Immat Gran (auto) 0.00 (0.00-0.03) X10*3/uL Absolute Neuts (auto) 2.3 (2.0-8.3) x10*3/uL Absolute Nucleated RBC 0.000 (0.0-0.012) X10*3/uL Nucleated RBC % (auto) 0.0 (0.0-0.2) /100WBC Sodium 140 (135-145) mmol/L Potassium 3.7 (3.3-5.1) mmol/L Chloride 103 (96-108) mmol/L Carbon Dioxide 25 (22-29) mmol/L Anion Gap 16 (12-20) BUN 5 L (9-16) mg/dL Creatinine 0.66 (0.5-1.4) mg/dL Estim Creat Clear Calc 145.2 Estimated GFR > 60 Random Glucose 99 (60-115) mg/dL Calcium 9.0 D (8.4-10.2) mg/dL Troponin I High Sens 8.5 (<3.5-35.0) ng/L Ethyl Alcohol mg/dL 01/23/22 Range/Units 17:06 WBC (4.8-10.8) X10*3/uL RBC (4.60-5.80) X10*6/uL Hgb (14.0-18.0) g/dl Hct (42.0-52.0) % MCV (80.0-98.0) fL MCH (27.0-33.0) pg MCHC (31.0-36.0) g/dl RDW (11.0-16.0) % Plt Count (160-400) X10*3/uL MPV (9.4-12.4) fL Immature Gran % (Auto) (0.0-0.4) % Neut % (Auto) (45-73) % Lymph % (Auto) (20-40) % [place] % (Auto) (2-11) % Eos % (Auto) (0-4) % Baso % (Auto) (0-2) % Lymph # (Auto) (1.2-4.9) X10*3/uL [place] # (Auto) (0.1-1.2) X10*3/uL Eos # (Auto) (0.0-0.4) X10*3/uL Baso # (Auto) (0.0-0.2) X10*3/uL Abs Immat Gran (auto) (0.00-0.03) X10*3/uL Absolute Neuts (auto) (2.0-8.3) x10*3/uL Absolute Nucleated RBC (0.0-0.012) X10*3/uL Nucleated RBC % (auto) (0.0-0.2) /100WBC Sodium (135-145) mmol/L Potassium (3.3-5.1) mmol/L Chloride (96-108) mmol/L Carbon Dioxide (22-29) mmol/L Anion Gap (12-20) BUN (9-16) mg/dL Creatinine (0.5-1.4) mg/dL Estim Creat Clear Calc Estimated GFR Random Glucose (60-115) mg/dL Calcium (8.4-10.2) mg/dL Troponin I High Sens (<3.5-35.0) ng/L Ethyl Alcohol 411 H* mg/dL Imaging Data CT scan - head: Radiologist's impression: CT/CT head/brain wo con IMPRESSION: Technically limited examination CT head: No acute intracranial finding. 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 ? CT cervical spine: No cervical spine fracture or traumatic malalignment identified. ECG Data Attestation: I personally reviewed and interpreted this ECG as follows: ECG interpretation date: 01/23/22 Prior ECG tracings: available for review Interpretation: Rate: 84 Rhythm:? Normal sinus rhythm [place]:? Normal Normal P waves.? Normal [place].?? Normal QRS complex.?? ST T wave :? No ST elevation, no ST depression, no T-wave inversion? qTC: 437 prior studies: September 2020? The study has been interpreted contemporaneously by me. Discharge Plan Discharge Clinical Impression: Alcohol use disorder, severe, dependence, Fall Patient Disposition: Still a Patient Prescriptions: No Action ondansetron HCl 4 mg tablet 4 mg PO Q6H PRN (Reason: nausea/vomiting) melatonin 5 mg tablet 10 mg PO BEDTIME
[2022-01-23 17:12] LABS: MANUAL DIFF FLAG NO
[2022-01-23 17:17] LABS: Basophils Percent Auto 0.7 % (0-2); Eosinophils Percent Auto 0.5 % (0-4); Hematocrit 40.5 % (42.0-52.0); Hemoglobin 13.3 g/dl (14.0-18.0); Lymphocytes Absolute Auto 1.3 X10*3/uL (1.2-4.9); Lymphocytes Percent Auto 31.8 % (20-40); Mean Corpuscular HGB Conc 32.8 g/dl (31.0-36.0); Mean Corpuscular Hemoglobin 28.2 pg (27.0-33.0); Mean Platelet Volume 9.4 fL (9.4-12.4); Monocytes Absolute Auto 0.4 X10*3/uL (0.1-1.2); Monocytes Percent Auto 8.9 % (2-11); Neutrophils Absolute Auto 2.3 x10*3/uL (2.0-8.3); Neutrophils Percent Auto 58.1 % (45-73); Platelet Count 133 X10*3/uL (160-400); Red Blood Count 4.71 X10*6/uL (4.60-5.80); Red Cell Distribution Width 14.3 % (11.0-16.0)
[2022-01-23 17:27] LABS: Ethanol 411 mg/dL
[2022-01-23 17:28] LABS: Anion Gap 16 (12-20); Blood Urea Nitrogen 5 mg/dL (9-16); Carbon Dioxide 25 mmol/L (22-29); Chloride 103 mmol/L (96-108); Creatinine Clr Calc Pharmacy 145.2; Estimated Glomerular Filt Rate > 60; Glucose Random 99 mg/dL (60-115); Potassium 3.7 mmol/L (3.3-5.1); Sodium 140 mmol/L (135-145)
[2022-01-23 17:35] LABS: Troponin-I High Sensitivity 8.5 ng/L (<3.5-35.0)
[2022-01-23 19:11] VITALS: BP 128/81; PULSE 92; RESP 16; TEMP 36.7; O2SAT 97
--- NOTE | 2022-01-23 20:10 | PC.NURSE ---
At beginning of shift assessment, pt had c-collar on. Pt returned from ct scan with c-collar removed.
[2022-01-23 23:34] VITALS: BP 122/68; PULSE 74; RESP 12; O2SAT 95
[2022-01-24 00:36] VITALS: BP 127/80; PULSE 88; RESP 14; O2SAT 95
[2022-01-24 01:34] VITALS: RESP 12
[2022-01-24 04:15] VITALS: BP 146/88; PULSE 97; RESP 14; O2SAT 97
--- NOTE | 2022-01-24 04:21 | PC.NURSE ---
Pt ambulated with steady gait. No signs of distress or shortness of breath. Skin warm, pink and dry. Pt ready for discharge
== END 2022-01-24 04:33 | disposition home or self-care (01) ==
PROVIDERS: Nurse Practitioner Family; Emergency Provider Emergency Medicine Emergency Medical Services
DX: F10.20 Alcohol dependence, uncomplicated (principal); Y90.8 Blood alcohol level of 240 mg/100 ml or more; Z91.81 History of falling
CPT/HCPCS: 36415; 70450; 72125; 80048; 82077; 84484; 85025; 93005; 99284; 99285

== ENCOUNTER 2022-02-06 13:42 | Emergency (ER) | payer OTHER, SELFPAY ==
[2022-02-06 13:46] VITALS: BP 114/71; BP 140/76; PULSE 110; PULSE 95; RESP 14; TEMP 36.7; O2SAT 95; O2SAT 98; BMI 20.7
--- NOTE | 2022-02-06 14:07 | PC.NURSE ---
Patient arrived via EMS for c/o depression, auditory hallucinations, and alcohol use. Upon arrival to the pod, patient stating I'm okay, I feel good now, I want to leave . Convinced patient to await provider. Changed over with security, belongings secured.
[2022-02-06 14:22] LABS: MANUAL DIFF FLAG NO
[2022-02-06 14:24] LABS: Basophils Percent Auto 0.7 % (0-2); Eosinophils Absolute Auto 0.1 X10*3/uL (0.0-0.4); Eosinophils Percent Auto 1.6 % (0-4); Hematocrit 41.8 % (42.0-52.0); Hemoglobin 13.8 g/dl (14.0-18.0); Imm Gran Abs Auto 0.02 X10*3/uL (0.00-0.03); Imm Gran Pct Auto 0.4 % (0.0-0.4); Lymphocytes Absolute Auto 1.8 X10*3/uL (1.2-4.9); Lymphocytes Percent Auto 31.2 % (20-40); Mean Corpuscular Hemoglobin 28.8 pg (27.0-33.0); Mean Corpuscular Volume 87.3 fL (80.0-98.0); Mean Platelet Volume 9.3 fL (9.4-12.4); Monocytes Absolute Auto 0.5 X10*3/uL (0.1-1.2); Monocytes Percent Auto 9.6 % (2-11); Neutrophils Absolute Auto 3.2 x10*3/uL (2.0-8.3); Neutrophils Percent Auto 56.5 % (45-73); Platelet Count 220 X10*3/uL (160-400); Red Blood Count 4.79 X10*6/uL (4.60-5.80); Red Cell Distribution Width 14.9 % (11.0-16.0); White Blood Count 5.6 X10*3/uL (4.8-10.8)
[2022-02-06 14:40] LABS: COVID-19 Test Negative (Negative); IDNOW Serial# 16C4AD1C
[2022-02-06 14:43] LABS: Ethanol 382 mg/dL
[2022-02-06 14:48] LABS: Alanine Aminotransferase 76 U/L (0-40); Albumin Level 4.3 g/dL (3.5-5.0); Alkaline Phosphatase 86 U/L (39-117); Anion Gap 15 (12-20); Aspartate Amino Transferase 114 U/L (5-37); Bilirubin Total 0.4 mg/dL (0.0-1.0); Blood Urea Nitrogen 6 mg/dL (9-16); Calcium 9.1 mg/dL (8.4-10.2); Carbon Dioxide 24 mmol/L (22-29); Chloride 104 mmol/L (96-108); Creatinine Clr Calc Pharmacy 84.4; Estimated Glomerular Filt Rate > 60; Glucose Random 117 mg/dL (60-115); Potassium 3.9 mmol/L (3.3-5.1); Sodium 139 mmol/L (135-145); Total Protein 7.9 g/dL (6.5-8.0)
--- NOTE | 2022-02-06 14:55 | ED_ITS ---
HPI - Psych General Chief Complaint: Psychiatric Symptoms Stated Complaint: DEPRESSION,ETOH, AUD HALLUCINATIONS,-SI Time Seen by Provider: 02/06/22 13:54 Source: patient Mode of arrival: ambulatory Limitations: no limitations History of Present Illness HPI Narrative: 56-year-old male coming from home with complaints of depression X1 day. No significant triggger, however mentions no one visited him for fathers day. Patient says he was drinking last night. He tells me he called 911 on himself. Denies Suicidal ideation, homicidal ideation. Denies visual, auditory and tactile hallucinations. Tells me he is taking his medications as prescribed. And no medical complaints at this time. MD complaint: feels depressed Onset (ago): day(s) (1) Duration: constant History of same: Yes Relieving factors: none Exacerbating factors: none Context: recent alcohol abuse Associated psychiatric symptoms: none Associated symptoms: denies other symptoms Treatments prior to arrival: none Related Data Home Medications Medication Instructions Recorded Confirmed melatonin 5 mg tablet 10 mg PO BEDTIME 08/25/20 08/25/20 ondansetron HCl 4 mg tablet 4 mg PO Q6H PRN nausea/vomiting 08/25/20 08/25/20 Allergies Allergy/AdvReac Type Severity Reaction Status Date / Time No Known Allergies Allergy Verified 12/29/21 12:55 [No Known Allergies*] Review of Systems Review of Systems: Constitutional : No Fever, No Chills ENT/Mouth : No sore throat, No Rhinorrhea Eyes: No Eye Pain, No Swelling, No Redness Cardiovascular : No Chest Pain, No SOB Respiratory : No Cough, No Sputum Gastrointestinal : No Nausea, No Vomiting, No Diarrhea, No abdominal Pain Genitourinary : No Dysuria, No Hematuria Musculoskeletal : No joint pain, No Myalgias, No Joint Swelling Skin : No Skin Lesions, No rash Neuro : No Weakness, No Numbness Psych : No Anxiety, No Depression, No SI/HI/AH/VH All other systems reviewed and are negative Yes all other systems are reviewed and are negative [facility] [place] Past Medical History Attestation statement: The following information was validated with the patient. Source: old records reviewed and nursing notes reviewed Medical History ETOH abuse Social History Social History Alcohol intake: current Alcohol intake frequency: 3 or more drinks per day Alcohol type: hard liquor Patient Tobacco Use Status: Never used Tobacco Advance Directives: No Advance Directives Information Provided: Yes Physical Exam Vital Signs: Vital Signs: Last Vital Signs Temp 98.1 F 02/06/22 13:46 Pulse 95 02/06/22 13:46 Resp 14 02/06/22 13:46 BP 114/71 02/06/22 13:46 Pulse Ox 95 02/06/22 13:46 O2 Del Method 02/06/22 13:46 BMI result Body Mass Index 20.7 VSS Appearance: Alert.? Oriented X3.? No acute distress.? Head: Normocephalic, atraumatic, no step-offs or deformities Eyes: Pupils equal, round and reactive to light.? ENT: Pharynx normal.? Neck: Normal inspection.? Neck supple.? CVS: Normal heart rate and rhythm.? Pulses normal.? Respiratory: No respiratory distress.? Breath sounds normal.? Abdomen: Soft and nontender.? Skin: Skin warm and dry.? Normal skin color.? Normal skin turgor.? Extremities: No lower extremity edema.? No calf ttp. 5/5 strength to bilateral upper and lower extremities Back: No midline tenderness, no C-spine tenderness, full range of motion, no CVA tenderness bilaterally Neuro: Oriented X 3.? No motor deficit.? No sensory deficit. CN 2-12 intact Course Reevaluation(s) Reevaluation #1: CBC appears to be at patient's baseline. Acute electrolyte abnormalities requiring intervention patient's transaminases are noted to be elevated (in a two to one fashion) likely secondary to alcohol abuse. COVID negative. Urine t oxicology pending at this time. Time: 15:05 Reevaluation #2: At this time patient will be placed into physician observation at this time urine toxicology pending. Patient vital signs are stable, he is, cooperative will continue to monitor. Time: 15:05 MDM - Psych MDM Narrative Medical decision making narrative: 1500 56-year-old male chronic alcohol abuse presents with acute alcohol intoxication and depression x1 day. Physical examination benign plan at this time is labs, medical clearance and evaluation by the behavioral health team. Medical Records Attestation: I reviewed the patient's medical records. Lab Data Attestation: I reviewed the patient's lab results. Result diagrams: 02/06/22 14:16 02/06/22 14:16 Labs: Lab Results 02/06/22 02/06/22 02/06/22 Range/Units 14:16 14:16 14:16 WBC 5.6 (4.8-10.8) X10*3/uL RBC 4.79 (4.60-5.80) X10*6/uL Hgb 13.8 L (14.0-18.0) g/dl Hct 41.8 L (42.0-52.0) % MCV 87.3 (80.0-98.0) fL MCH 28.8 (27.0-33.0) pg MCHC 33.0 (31.0-36.0) g/dl RDW 14.9 (11.0-16.0) % Plt Count 220 D (160-400) X10*3/uL MPV 9.3 L (9.4-12.4) fL Immature Gran % (Auto) 0.4 (0.0-0.4) % Neut % (Auto) 56.5 (45-73) % Lymph % (Auto) 31.2 (20-40) % Hardy % (Auto) 9.6 (2-11) % Eos % (Auto) 1.6 (0-4) % Baso % (Auto) 0.7 (0-2) % Lymph # (Auto) 1.8 (1.2-4.9) X10*3/uL Hardy # (Auto) 0.5 (0.1-1.2) X10*3/uL Eos # (Auto) 0.1 (0.0-0.4) X10*3/uL Baso # (Auto) 0.0 (0.0-0.2) X10*3/uL Abs Immat Gran (auto) 0.02 (0.00-0.03) X10*3/uL Absolute Neuts (auto) 3.2 (2.0-8.3) x10*3/uL Absolute Nucleated RBC 0.000 (0.0-0.012) X10*3/uL Nucleated RBC % (auto) 0.0 (0.0-0.2) /100WBC Sodium 139 (135-145) mmol/L Potassium 3.9 (3.3-5.1) mmol/L Chloride 104 (96-108) mmol/L Carbon Dioxide 24 (22-29) mmol/L Anion Gap 15 (12-20) BUN 6 L (9-16) mg/dL Creatinine 0.74 (0.5-1.4) mg/dL Estim Creat Clear Calc 84.4 Estimated GFR > 60 Random Glucose 117 H (60-115) mg/dL Calcium 9.1 (8.4-10.2) mg/dL Total Bilirubin 0.4 (0.0-1.0) mg/dL AST 114 H (5-37) U/L ALT 76 H (0-40) U/L Alkaline Phosphatase 86 D (39-117) U/L Total Protein 7.9 (6.5-8.0) g/dL Albumin 4.3 (3.5-5.0) g/dL Ethyl Alcohol 382 H* mg/dL COVID-19 ([facility]ILAJA) (Negative) COVID-19 Clin Com 02/06/22 Range/Units 14:16 WBC (4.8-10.8) X10*3/uL RBC (4.60-5.80) X10*6/uL Hgb (14.0-18.0) g/dl Hct (42.0-52.0) % MCV (80.0-98.0) fL MCH (27.0-33.0) pg MCHC (31.0-36.0) g/dl RDW (11.0-16.0) % Plt Count (160-400) X10*3/uL MPV (9.4-12.4) fL Immature Gran % (Auto) (0.0-0.4) % Neut % (Auto) (45-73) % Lymph % (Auto) (20-40) % Hardy % (Auto) (2-11) % Eos % (Auto) (0-4) % Baso % (Auto) (0-2) % Lymph # (Auto) (1.2-4.9) X10*3/uL Hardy # (Auto) (0.1-1.2) X10*3/uL Eos # (Auto) (0.0-0.4) X10*3/uL Baso # (Auto) (0.0-0.2) X10*3/uL Abs Immat Gran (auto) (0.00-0.03) X10*3/uL Absolute Neuts (auto) (2.0-8.3) x10*3/uL Absolute Nucleated RBC (0.0-0.012) X10*3/uL Nucleated RBC % (auto) (0.0-0.2) /100WBC Sodium (135-145) mmol/L Potassium (3.3-5.1) mmol/L Chloride (96-108) mmol/L Carbon Dioxide (22-29) mmol/L Anion Gap (12-20) BUN (9-16) mg/dL Creatinine (0.5-1.4) mg/dL Estim Creat Clear Calc Estimated GFR Random Glucose (60-115) mg/dL Calcium (8.4-10.2) mg/dL Total Bilirubin (0.0-1.0) mg/dL AST (5-37) U/L ALT (0-40) U/L Alkaline Phosphatase (39-117) U/L Total Protein (6.5-8.0) g/dL Albumin (3.5-5.0) g/dL Ethyl Alcohol mg/dL COVID-19 ([facility]AJA) Negative (Negative) COVID-19 Clin Com See Note Critical Care Time Critical Care Time Critical Care Time: No Discharge Plan Discharge Clinical Impression: Alcohol use disorder, severe, dependence Patient Disposition: Home, Self-Care Instructions: Alcohol Use Disorder (ED) Additional Instructions: Take your medications as prescribed. If you were prescribed antibiotics today, it is important that you take your medication to their entirety, do not skip any doses, do not finish them early. Follow-up with your primary care provider this week. Return to the emergency department with new or worsening symptoms. Such as fevers, chills, chest pain, shortness of breath, nausea, vomiting, dizziness, headache, vision changes, lethargy In case of emergency call 911 Prescriptions: No Action ondansetron HCl 4 mg tablet 4 mg PO Q6H PRN (Reason: nausea/vomiting) melatonin 5 mg tablet 10 mg PO BEDTIME Referrals: Candy London DO [Primary Care Provider] - 2 days
--- NOTE | 2022-02-06 16:28 | PC.NURSE ---
Patient resting comfortably, unable to provide urine sample at this time.
[2022-02-06 17:14] LABS: Amphetamine Screen Urine Not Detected (Not Detect); Barbiturates, Urine Not Detected (Not Detect); Benzodiazepines Screen Urine Not Detected (Not Detect); Cannabinoid Screen Urine Not Detected (Not Detect); Cocaine Screen Urine Not Detected (Not Detect); Fentanyl, urine Not Detected (Not Detect); Opiate Screen Urine Not Detected (Not Detect); Phencyclidine Screen Urine Not Detected (Not Detect)
[2022-02-06 21:40] VITALS: BP 143/71; PULSE 93; RESP 16; TEMP 36.4; O2SAT 99
[2022-02-07] MEDS: LORazepam 1 MG TABLET 2 MG PO (03:53)
[2022-02-07 03:55] VITALS: BP 167/99; PULSE 101; RESP 20; TEMP 37.2; O2SAT 98
--- NOTE | 2022-02-07 03:55 | PC.NURSE ---
Patient is extremely tremulous, CIWA score is 16, provider notified/ordered ativan 2 mg PO., pending effect, will continue to monitor
--- NOTE | 2022-02-07 06:05 | PC.NURSE ---
Patient slept well, positive effect from Ativan 2 mg administered earlier, CIWA not assessed patient sleeping, patient is symptomatic of withdrawal, behavior appropriate, patient is currently not on any medication, [facility] referral completed/confirmed/pending ETA, will continue to monitor.
[2022-02-07 07:31] VITALS: BP 161/74; PULSE 88; RESP 14; TEMP 36; O2SAT 99
[2022-02-07] MEDS: chlordiazePOXIDE HCl 25 MG CAPSULE 50 MG PO (07:38)
--- NOTE | 2022-02-07 07:45 | PC.NURSE ---
pt received in room, sitting on edge of bed, vomiting. further assessment reveals tremor, nausea, sweating, auditory and visual hallucinations, mild headache. BP 161/74. Dr Scales made aware, consulted re: medication. Med ordered and administered. Pt resting, will continue to monitor.
--- NOTE | 2022-02-07 08:37 | PC.NURSE ---
pt received 1st dose librium at 740a. Verified next dose to be given at 3p with Dr. Scales.
[2022-02-07 10:42] VITALS: BP 150/81; PULSE 82; RESP 16; TEMP 37.3; O2SAT 98
== END 2022-02-07 10:59 | disposition home or self-care (01) ==
PROVIDERS: Physician Assistant; Emergency Provider Emergency Medicine Emergency Medical Services; PCP Family Medicine
DX: F10.229 Alcohol dependence with intoxication, unspecified (principal); F33.1 Major depressive disorder, recurrent, moderate; R44.1 Visual hallucinations; R45.851 Suicidal ideations; Y90.8 Blood alcohol level of 240 mg/100 ml or more; Z20.822 Contact with and (suspected) exposure to COVID-19; Z79.899 Other long term (current) drug therapy
CPT/HCPCS: 36415; 80053; 80307; 82077; 85025; 87635; 99284

== ENCOUNTER 2022-02-28 13:55 | Emergency (ER) | payer OTHER, SELFPAY ==
[2022-02-28 14:26] VITALS: BP 132/80; BP 158/76; PULSE 84; PULSE 96; RESP 16; TEMP 36.6; O2SAT 96; BMI 21.9
--- NOTE | 2022-02-28 14:29 | ED.PSYCH ---
HPI - Psych General Stated Complaint: SI,DEPRESSED, Time Seen by Provider: 02/28/22 14:28 Source: patient and EMS Mode of arrival: EMS Limitations: no limitations History of Present Illness HPI Narrative: 56-year-old male with a past medical history of depression presenting to the ED with complaints of increased depression. He reports that he called the ambulance to come here due to he had to get out of his house although he is going to have some visitors later therefore he wants to be discharged at this time after he was here for 10 minutes. He is whistling and happy singing talking to everyone reporting that he wants to go home to feed his cat and hang out with his friends. Denies any SI/HI/auditory visualizations thoughts of self-injury. Denies any recent alcohol or drug usage. MD complaint: feels depressed Onset (ago): minute(s) (Prior to arrival) Duration: other (Resolved at this time) History of same: Yes Relieving factors: none Exacerbating factors: none Associated psychiatric symptoms: depression Associated symptoms: denies other symptoms Treatments prior to arrival: none Related Data Home Medications Medication Instructions Recorded Confirmed No Known Home Meds 02/06/22 02/06/22 Allergies Allergy/AdvReac Type Severity Reaction Status Date / Time No Known Allergies Allergy Verified 12/29/21 12:55 [No Known Allergies*] Review of Systems Review of Systems: Constitutional : No Fever, No Chills ENT/Mouth : No Ear Pain, No Nasal Congestion, No sore throat Eyes: No Eye Pain, No Swelling, No Redness Cardiovascular : No Chest Pain, No SOB Respiratory : No Cough, No Sputum, No Dyspnea Gastrointestinal : No ingestions, No Nausea, No Vomiting, No Diarrhea, No Hematochezia, No Melena Genitourinary : No Dysuria, No Urinary Frequency, No Hematuria Musculoskeletal : No Myalgias Skin : No Skin Lesions, No rash Neuro : No Weakness, No Numbness, No Paresthesias, No Dizziness, No Headache Psych : No Anxiety, + Depression, No SI, No thoughts of self injury, No HI, No AVH, Heme/Lymph: No Lymphadenopathy Endocrine : No Polyuria, No Polydipsia Yes all other systems are reviewed and are negative PMFSH Past Medical History Attestation statement: The following information was validated with the patient. Source: old records reviewed and nursing notes reviewed Medical History ETOH abuse Social History Social History Alcohol intake: current Alcohol intake frequency: 3 or more drinks per day Alcohol type: hard liquor Patient Tobacco Use Status: Never used Tobacco Advance Directives: No Advance Directives Information Provided: Yes Physical Exam Vital Signs: Vital Signs: vital signs have been reviewed as normal and appeared to be correct. Blood pressure normal. Heart rate normal. Respiration rate normal. Temperature normal. Oxygen saturation normal. Appearance: Alert. Oriented X3. No acute distress. Head: Normal external exam. Normocephalic. Atraumatic. No Sandoval signs noted. No raccoon eyes noted Eyes: PERRLA. EOMI. Conjunctiva and sclera normal. Eyelids normal. ENT: EAC normal. TM's Normal. Pharynx normal. Uvula midline. Moist mucous membranes. No trismus noted. No drooling noted. No muffled voice noted. Neck: Normal inspection. Neck supple. FROM. No adenopathy. Thyroid Normal. No meningeal signs. No neck mass noted. CVS: Normal heart rate and rhythm. Heart sound normal. No murmurs noted. Pulses normal throughout. Respiratory: No respiratory distress. Painless inspiration. Breath sounds normal. No wheezes/rales/rhonchi noted. Chest nontender. No accessory muscle usage noted or decreased air movement noted. Abdomen: Soft and nontender. Bowel sounds normal in all 4 quadrants. No distention noted. No organomegaly noted. No visible injury noted. Back: No CVA tenderness. Full range of motion noted. Skin: Skin warm and dry. Normal skin color. Normal skin turgor. No rashes/lesions/lacerations noted. Extremities: No lower extremity edema. Extremities exhibit normal range of motion. Extremities nontender. Neuro: Oriented X 3. No motor deficit. No sensory deficit. Reflexes normal. CN's II-XII intact bilaterally? Psych: Appearance grossly normal, well-kept, mental status normal, speech and movement normal, speech clear, patient appears very happy singing and whistling speaking to everyone saying how he enjoys life and wants to go home to the feed his cat and hang out with his friends later no evidence of depression at this time happy affect. Is cooperative. Normal thought process. Normal thought content. Normal good insight. Judgment good. Course Course Course Narrative: Patient denies SI/HI/auditory visualizations or thoughts of self injury. Does not appear intoxicated. Walking around the ER with no assistive devices or assistance. Whistling and singing reporting that he needs to go home to feed his cat and hang out with his friends later on therefore at this time will DC home with instructions return if any new or worsening symptoms follow up with primary care provider. Patient understands agrees with this plan. [facility] - Psych Medical Records Attestation: I reviewed the patient's medical records. Discharge Plan Discharge Clinical Impression: Depression Patient Disposition: Home, Self-Care Instructions: Depression (ED) Prescriptions: No Action No Known Home Meds Rx Instructions: Off medication for over a year
== END 2022-02-28 14:34 | disposition home or self-care (01) ==
PROVIDERS: Emergency Provider Emergency Medicine
DX: F33.1 Major depressive disorder, recurrent, moderate (principal); R45.851 Suicidal ideations; Z79.899 Other long term (current) drug therapy
CPT/HCPCS: 99282

== ENCOUNTER 2022-03-09 11:50 | Emergency (ER) | payer OTHER, SELFPAY ==
[2022-03-09 12:05] VITALS: BP 130/98; PULSE 81; O2SAT 98; BMI 22.1
[2022-03-09 12:10] LABS: Glucose, Whole Blood 88 mg/dL (60-115)
[2022-03-09 12:12] VITALS: BP 130/72; PULSE 80; RESP 16; O2SAT 97
--- NOTE | 2022-03-09 12:12 | ED_ITS ---
HPI - Psych General Chief Complaint: ETOH/Substance Use Stated Complaint: ETOH Time Seen by Provider: 03/09/22 12:11 Source: patient Mode of arrival: EMS Limitations: no limitations History of Present Illness HPI Narrative: INtoxication, patient with increased depression for one week. Denies suicidal ideation, denies hearing or seeing things. Patient is an alcoholic. Patient is feeling more depressed because his left him 5 years ago. MD complaint: feels depressed Onset (ago): week(s) Duration: constant History of same: Yes Exacerbating factors: alcohol Context: recent alcohol abuse Associated psychiatric symptoms: depression Associated symptoms: denies other symptoms Related Data Home Medications Medication Instructions Recorded Confirmed No Known Home Meds 02/06/22 02/06/22 Allergies Allergy/AdvReac Type Severity Reaction Status Date / Time No Known Allergies Allergy Verified 12/29/21 12:55 [No Known Allergies*] Review of Systems Constitutional: Constitutional: Reports no additional constitutional complaints Eyes: Eyes: Reports no additional eye complaints ENT: Denies dizziness Cardiovascular: Cardiovascular: Reports no additional cardiovascular co mplaints Respiratory: Respiratory: Reports as per HPI Gastrointestinal: Gastrointestinal: Reports no additional gastrointestinal complaints Musculoskeletal: Musculoskeletal: Reports no additional musculoskeletal complaints Integumentary/Breasts: Skin/Breast: Denies rash Neurologic: Reports system reviewed and no additional complaints, except as documented, Denies dizziness and Denies Sensory deficit (Neuro) Psychiatric: Psychiatric: Denies anxiety PMFSH Past Medical History Medical History ETOH abuse Social History Social History Alcohol intake: current Alcohol intake frequency: 3 or more drinks per day Alcohol type: hard liquor Patient Tobacco Use Status: Never used Tobacco Advance Directives: No Advance Directives Information Provided: No Physical Exam Vital Signs: Vital Signs: Last Vital Signs Pulse 80 03/09/22 12:12 Resp 16 03/09/22 12:12 BP 130/72 03/09/22 12:12 Pulse Ox 97 03/09/22 12:12 O2 Del Method 03/09/22 12:12 BMI result Body Mass Index 22.1 Const: Other: male looking older than stated age, intoxicated Nutritional Appearance: thin Orientation/consciousness: oriented to person and patient oriented x3 Limitations: no limitations and other limitations (intoxicated) HEENT: Head: Yes normal to inspection Ears: external ears normal General nose exam: Normal external nose present Mouth: Normal oral and palatal mucosa present and oropharynx normal Throat: Yes posterior oropharynx normal Eyes: General: appearance normal, both eyes and all related structures Neck: Other: supple Neck: Yes normal visual inspection Chest: Chest palpation & inspection: normal inspection of the chest Resp: Auscultation: clear to auscultation bilaterally Cardio: Jugular venous distension: no JVD Rate: regular rate Rhythm: regular rhythm Heart sounds: S1 normal heart sound present and S2 normal heart sound present GI: Inspection: Yes normal to inspection Palpation (GI): Soft to palpation, nontender and No hepatosplenomegaly present Auscultation: normal bowel sounds : General: Yes no CVA tenderness Back/Spine/Pelvis: Back: no CVA tenderness Skin: General skin exam: no rashes or lesions noted Neuro: General: oriented to person and patient oriented x3 Cranial nerves: Yes CN's II-XII intact bilaterally Motor exam (neuro): 5/5 motor strength present throughout Sensory Exam: No Sensory deficit (Neuro) Extrem: General: Yes normal to inspection Psych: Appearance: grossly normal Course Reevaluation(s) Reevaluation #1: seen and cleared by crisis, will need a sober ride to go home with Time: 13:34 [facility] - Psych Lab Data Result diagrams: 03/09/22 12:36 03/09/22 12:36 Labs: Lab Results 03/09/22 03/09/22 03/09/22 Range/Units 12:07 12:36 12:36 WBC 7.3 (4.8-10.8) X10*3/uL RBC 4.95 (4.60-5.80) X10*6/uL Hgb 14.1 (14.0-18.0) g/dl Hct 43.4 (42.0-52.0) % MCV 87.7 (80.0-98.0) fL MCH 28.5 (27.0-33.0) pg MCHC 32.5 (31.0-36.0) g/dl RDW 14.5 (11.0-16.0) % Plt Count 178 (160-400) X10*3/uL MPV 9.9 (9.4-12.4) fL Immature Gran % (Auto) 0.3 (0.0-0.4) % Neut % (Auto) 59.6 (45-73) % Lymph % (Auto) 27.2 (20-40) % [place] % (Auto) 9.0 (2-11) % Eos % (Auto) 2.9 (0-4) % Baso % (Auto) 1.0 (0-2) % Lymph # (Auto) 2.0 (1.2-4.9) X10*3/uL [place] # (Auto) 0.7 (0.1-1.2) X10*3/uL Eos # (Auto) 0.2 (0.0-0.4) X10*3/uL Baso # (Auto) 0.1 (0.0-0.2) X10*3/uL Abs Immat Gran (auto) 0.02 (0.00-0.03) X10*3/uL Absolute Neuts (auto) 4.3 (2.0-8.3) x10*3/uL Absolute Nucleated RBC 0.000 (0.0-0.012) X10*3/uL Nucleated RBC % (auto) 0.0 (0.0-0.2) /100WBC Sodium 137 (135-145) mmol/L Potassium 3.9 (3.3-5.1) mmol/L Chloride 107 (96-108) mmol/L Carbon Dioxide 19 L (22-29) mmol/L Anion Gap 15 (12-20) BUN 7 L (9-16) mg/dL Creatinine 0.64 (0.5-1.4) mg/dL Estim Creat Clear Calc 104.4 Estimated GFR > 60 POC Glucose 88 (60-115) mg/dL Random Glucose 167 H D (60-115) mg/dL Calcium 8.9 (8.4-10.2) mg/dL Total Bilirubin 0.5 (0.0-1.0) mg/dL AST 80 H (5-37) U/L ALT 59 H (0-40) U/L Alkaline Phosphatase 74 (39-117) U/L Total Protein 7.9 (6.5-8.0) g/dL Albumin 4.3 (3.5-5.0) g/dL Ethyl Alcohol 278 mg/dL Discharge Plan Discharge Clinical Impression: Alcoholic intoxication, Depression Patient Disposition: Home, Self-Care Instructions: Alcohol Intoxication (ED), Abuse of Alcohol (ED), Depression (ED) Prescriptions: No Action No Known Home Meds Rx Instructions: Off medication for over a year Referrals: Physician,Unknown J [Primary Care Provider] - 5 days
[2022-03-09 12:47] LABS: MANUAL DIFF FLAG NO
[2022-03-09 12:52] LABS: Basophils Absolute Auto 0.1 X10*3/uL (0.0-0.2); Eosinophils Absolute Auto 0.2 X10*3/uL (0.0-0.4); Eosinophils Percent Auto 2.9 % (0-4); Hematocrit 43.4 % (42.0-52.0); Hemoglobin 14.1 g/dl (14.0-18.0); Imm Gran Abs Auto 0.02 X10*3/uL (0.00-0.03); Imm Gran Pct Auto 0.3 % (0.0-0.4); Lymphocytes Percent Auto 27.2 % (20-40); Mean Corpuscular HGB Conc 32.5 g/dl (31.0-36.0); Mean Corpuscular Hemoglobin 28.5 pg (27.0-33.0); Mean Corpuscular Volume 87.7 fL (80.0-98.0); Mean Platelet Volume 9.9 fL (9.4-12.4); Monocytes Absolute Auto 0.7 X10*3/uL (0.1-1.2); Neutrophils Absolute Auto 4.3 x10*3/uL (2.0-8.3); Neutrophils Percent Auto 59.6 % (45-73); Platelet Count 178 X10*3/uL (160-400); Red Blood Count 4.95 X10*6/uL (4.60-5.80); Red Cell Distribution Width 14.5 % (11.0-16.0); White Blood Count 7.3 X10*3/uL (4.8-10.8)
[2022-03-09 13:14] LABS: Alanine Aminotransferase 59 U/L (0-40); Albumin Level 4.3 g/dL (3.5-5.0); Alkaline Phosphatase 74 U/L (39-117); Anion Gap 15 (12-20); Aspartate Amino Transferase 80 U/L (5-37); Bilirubin Total 0.5 mg/dL (0.0-1.0); Blood Urea Nitrogen 7 mg/dL (9-16); Calcium 8.9 mg/dL (8.4-10.2); Carbon Dioxide 19 mmol/L (22-29); Chloride 107 mmol/L (96-108); Creatinine Clr Calc Pharmacy 104.4; Estimated Glomerular Filt Rate > 60; Ethanol 278 mg/dL; Glucose Random 167 mg/dL (60-115); Potassium 3.9 mmol/L (3.3-5.1); Sodium 137 mmol/L (135-145); Total Protein 7.9 g/dL (6.5-8.0)
--- NOTE | 2022-03-09 13:18 | MHC.CARE ---
Pt is a 56 y/o single, Georgian Speaking male who is previously known to the CARE Team through prior ED visits.? Pt presents today via ambulance with a complaint of increasing depression over the past week that is exacerbated by his alcohol consumption.? He reports that he had a period of sobriety that ended during the ?s Day parade.? He stated that he saw people drinking and enjoying themselves so he had a drink.? Since that time, he has been drinking to the point of intoxication daily.? He stated that he has been off his depression medication because he has missed appointments because he has been ?Too busy drinking.?? Pt reports that this is generally a hard time of year for him as it is the approaching anniversary of his Mother?s .? He reports a neighbor he is close to and that his brother Hernan lives next door.? He reports his brother as being supportive.? He denies SI, HI, , and self-harm urges.? He is interested in [facility], specifically [facility] and a Dispensary Technician. Pt does not meet criteria for an inpatient level of stay.? Pt has community supports in place and the barrier to the effectiveness of those supports is his alcohol consumption. CARE Team has provided pt with an informational brochure for [facility] and the program was explained.? ??Dispensary Technician Bolt Maker Isabelle was e mailed, referring pt to her for a Dispensary Technician.
--- NOTE | 2022-03-09 13:51 | PC.NURSE ---
PT AWAKE, ALERT AND ORIENTED. TOLERATING PO. CONVERSING WITH STAFF APPROPRIATELY. PT CALM/COOPERATIVE. AMBULATORY IN ED, GAIT STEADY. DENIES SI/HI PT REQUESTING TO GO HOME. NO COMPLAINTS OFFERED. PLAN FOR DC HOME.
== END 2022-03-09 13:54 | disposition home or self-care (01) ==
PROVIDERS: Emergency Provider Emergency Medicine
DX: F10.120 Alcohol abuse with intoxication, uncomplicated (principal); Y90.8 Blood alcohol level of 240 mg/100 ml or more; F32.A Depression, unspecified
CPT/HCPCS: 80053; 82077; 82947; 85025; 99283

== ENCOUNTER 2022-03-25 17:22 | Emergency (ER) | payer OTHER, SELFPAY ==
[2022-03-25 17:29] VITALS: BP 132/91; BP 160/90; PULSE 106; PULSE 86; RESP 16; TEMP 36.9; O2SAT 95; BMI 20.7
--- NOTE | 2022-03-25 17:54 | ED_ITS ---
HPI - Psych General Chief Complaint: Psychiatric Symptoms Stated Complaint: SI/DEPRESSED Time Seen by Provider: 03/25/22 17:49 Source: patient and EMS Mode of arrival: EMS Limitations: no limitations History of Present Illness HPI Narrative: 56-year-old male who presents with EMS after being found outside crying and reporting depression. When I spoke to the patient he tells me that when he drinks alcohol it makes him feel sad. He denies suicidal ideations. He did drink 224 oz beers prior to arrival. He denies any homicidal ideations. No hallucinations. Patient denies any falls or injury. He would like to go home. Related Data Home Medications Medication Instructions Recorded Confirmed No Known Home Meds 02/06/22 02/06/22 Allergies Allergy/AdvReac Type Severity Reaction Status Date / Time No Known Allergies Allergy Verified 12/29/21 12:55 [No Known Allergies*] Review of Systems Review of Systems: Yes all other systems are reviewed and are negative Constitutional: Constitutional: Reports no additional constitutional complaints, Denies body ache(s), Denies chills, Denies fever(s), Denies headache(s) and Denies weakness Eyes: Eyes: Reports no additional eye complaints and Denies change in vision ENT: Reports system reviewed and no additional complaints, except as docum ented, Denies dizziness, Denies headache(s), Denies nasal congestion, Denies nasal discharge and Denies neck pain Cardiovascular: Cardiovascular: Reports no additional cardiovascular complaints, Denies chest pain, Denies leg edema and Denies dyspnea Respiratory: Respiratory: Reports no additional respiratory complaints, Denies cough and Denies dyspnea Gastrointestinal: Gastrointestinal: Reports no additional gastrointestinal complaints, Denies abdominal pain, Denies diarrhea, Denies nausea and Denies vomiting Genitourinary: Genitourinary: Denies urinary incontinence Musculoskeletal: Musculoskeletal: Reports no additional musculoskeletal complaints, Denies back pain, Denies arthralgias, Denies joint swelling, Denies neck pain, Denies numbness and Denies tingling Integumentary/Breasts: Skin/Breast: Reports system reviewed and no additional complaints, except as docu and Denies rash Neurologic: Reports system reviewed and no additional complaints, except as documented, Denies Abnormal speech present, Denies dizziness, Denies headache (s), Denies numbness, Denies tingling and Denies weakness Psychiatric: Psychiatric: Denies anxiety, Reports depression, Denies homicidal ideation and Denies suicidal ideation [facility] Past Medical History Attestation statement: The following information was validated with the patient. Source: old records reviewed and nursing notes reviewed Medical History ETOH abuse Social History Social History Alcohol intake: current Alcohol intake frequency: 3 or more drinks per day Alcohol type: hard liquor Patient Tobacco Use Status: Never used Tobacco Advance Directives: No Advance Directives Information Provided: No Physical Exam Vital Signs: Vital Signs: Last Vital Signs Temp 98.5 F 03/25/22 17:29 Pulse 86 03/25/22 17:29 Resp 16 03/25/22 17:29 BP 132/91 H 03/25/22 17:29 Pulse Ox 95 03/25/22 17:29 O2 Del Method 03/25/22 17:29 BMI result Body Mass Index 20.7 Const: General: cooperative, healthy appearing, comfortable and no acute distress Orientation/consciousness: patient oriented x3 Limitations: no limitations HEENT: Head: Yes normal to inspection Ears: hearing grossly normal bilaterally General nose exam: Normal external nose present Face and sinus: Yes normal facial exam Mouth: Normal oral and palatal mucosa present Throat: Yes posterior oropharynx normal Eyes: General: appearance normal, both eyes and all related structures Pupils: Equal, round and reactive pupils present Neck: Neck: Yes normal visual inspection Chest: Chest palpation & inspection: normal inspection of the chest Resp: Effort & Inspection: normal respiratory effort Auscultation: clear to auscultation bilaterally Cardio: Rate: regular rate Rhythm: regular rhythm Peripheral pulses: Peripheral pulses 2+ throughout GI: Inspection: Yes normal to inspection Palpation (GI): Soft to palpation and nontender Auscultation: normal bowel sounds Back/Spine/Pelvis: Thoracic/Lumbar Spine: thoracic and lumbar spine normal to inspection Skin: General skin exam: no rashes or lesions noted Neuro: General: patient oriented x3, no focal motor deficits and normal sensation to monofilament Cranial nerves: Yes CN's II-XII intact bilaterally and Yes Equal, round and reactive pupils present Cognition (Neuro): normal cognition Speech: No Abnormal speech present Gait exam (Neuro): Normal gait present Motor exam (neuro): 5/5 motor strength present throughout Extrem: General: Yes normal to inspection Course Course Course Narrative: Patient clinically is up and ambulatory, tolerating p.o.. He has a steady gait. His vitals are stable. He declines detox. He is not suicidal. Plan for discharge home. MDM - Psych MDM Narrative Medical decision making narrative: 56-year-old male who reports feeling sad after drinking some alcohol today. No suicidal thoughts. No concern for acute ingestion or trauma. Patient tells me that when he drinks alcohol he sometimes feels sad. He would like to go home. He is up and ambulating around the unit. He has no complaints. His vitals are stable. He is eating and drinking Medical Records Attestation: I reviewed the patient's medical records. Lab Data Attestation: I reviewed the patient's lab results. Discharge Plan Discharge Clinical Impression: Alcohol abuse, Depression Patient Disposition: Home, Self-Care Instructions: Depression (ED), Abuse of Alcohol (ED) Prescriptions: No Action No Known Home Meds Rx Instructions: Off medication for over a year
== END 2022-03-25 19:55 | disposition home or self-care (01) ==
PROVIDERS: Emergency Provider Internal Medicine
DX: F10.10 Alcohol abuse, uncomplicated (principal); Y90.9 Presence of alcohol in blood, level not specified; F32.A Depression, unspecified
CPT/HCPCS: 99282

== ENCOUNTER 2022-05-12 13:27 | Emergency (ER) | payer OTHER, SELFPAY ==
--- NOTE | 2022-05-12 13:44 | ED.PSYCH ---
HPI - Psych General Chief Complaint: Psychiatric Symptoms Stated Complaint: DEPRESSION Time Seen by Provider: 05/12/22 13:44 Source: patient Mode of arrival: EMS Limitations: no limitations History of Present Illness HPI Narrative: no SI, just wanted to come here eat a sandwhich and tell us about his puppy and cat complaint: feels depressed Onset (ago): day(s) (2) Duration: constant History of same: Yes Relieving factors: none Exacerbating factors: alcohol Context: significant life stressor (states someone either took or he lost his cat and puppy) Associated psychiatric symptoms: depression Associated symptoms: denies other symptoms Treatments prior to arrival: none Related Data Home Medications Medication Instructions Recorded Confirmed No Known Home Meds 02/06/22 02/06/22 Allergies Allergy/AdvReac Type Severity Reaction Status Date / Time No Known Allergies Allergy Verified 12/29/21 12:55 [No Known Allergies*] Review of Systems Review of Systems: Constitutional : No Fever, No Chills ENT/Mouth : No Ear Pain, No Nasal Congestion, No sore throat Eyes: No Eye Pain, No Swelling, No Redness Cardiovascular : No Chest Pain, No SOB Respiratory : No Cough, No Sputum, No Dyspnea Gastrointestinal : No Nausea, No Vomiting, No Diarrhea, No Hematochezia, No Melena Genitourinary : No Dysuria, No Urinary Frequency, No Hematuria Musculoskeletal : No Myalgias Skin : No Skin Lesions, No rash Neuro : No Weakness, No Numbness, No Paresthesias, No Dizziness, No Headache Psych : positive Anxiety, positive Depression, no SI/HI Heme/Lymph: No Lymphadenopathy Endocrine : No Polyuria, No Polydipsia All other systems reviewed and are negative [facility] Past Medical History Attestation statement: The following information was validated with the patient. Medical History ETOH abuse Social History Social History Alcohol intake: current Alcohol intake frequency: 3 or more drinks per day Alcohol type: hard liquor Patient Tobacco Use Status: Never used Tobacco Advance Directives: No Advance Directives Information Provided: No Physical Exam Vital Signs: Vital Signs: Last Vital Signs Temp 97 F 05/12/22 15:37 Pulse 87 05/12/22 15:37 Resp 17 05/12/22 15:37 BP 102/66 05/12/22 15:37 Pulse Ox 99 05/12/22 15:37 O2 Del Method 05/12/22 15:37 BMI result Body Mass Index 24.7 Appearance: Alert. Oriented X3. No acute distress. Steady gait, ETOH odor Eyes: Pupils equal, round and reactive to light. ENT: Pharynx normal. Neck: Normal inspection. Neck supple. CVS: Normal heart rate and rhythm. Pulses normal. Respiratory: No respiratory distress. Breath sounds normal. Abdomen: Soft and nontender. Skin: Skin warm and dry. Normal skin color. Normal skin turgor. Extremities: No lower extremity edema. No calf ttp Neuro: Oriented X 3. No motor deficit. No sensory deficit. Course Course Course Narrative: steady gait, clinically sober - stable for DC MDM - Psych MDM Narrative Medical decision making narrative: 57 yo male well known to us for ETOH and situational depression - he is here with c/o feeling sad after he lost his puppy and cat. He has no SI. He does not want to talk to crisis he just wanted to come to the ED for a sandwhich and to talk to us about his feeling. I do not think he warrants inpatient. He himself states he is okay at home. Will observe and feed. He has a steady gait and is GCS 15. Lab Data Labs: Lab Results 05/12/22 Range/Units 14:17 COVID-19 ([facility]) Negative (Negative) COVID-19 Clin Com See Note Discharge Plan Discharge Clinical Impression: Grief reaction, Alcohol abuse Patient Disposition: Home, Self-Care Instructions: Grief and Loss (ED), Abuse of Alcohol (ED) Additional Instructions: return to ED for any worsening symptoms or concerns Prescriptions: No Action No Known Home Meds Rx Instructions: Off medication for over a year
[2022-05-12 14:01] VITALS: BP 128/78; BP 150/90; PULSE 88; RESP 18; TEMP 36.6; O2SAT 98; O2SAT 99; BMI 24.7
[2022-05-12 14:49] LABS: COVID-19 Test Negative (Negative); IDNOW Serial# 16C4AD1C
[2022-05-12 15:37] VITALS: BP 102/66; PULSE 87; RESP 17; TEMP 36.1; O2SAT 99
== END 2022-05-12 16:06 | disposition home or self-care (01) ==
PROVIDERS: Emergency Provider Emergency Medicine; PCP Family Medicine
DX: F43.20 Adjustment disorder, unspecified (principal); F10.10 Alcohol abuse, uncomplicated; Y90.9 Presence of alcohol in blood, level not specified; F32.A Depression, unspecified; Z20.822 Contact with and (suspected) exposure to COVID-19
CPT/HCPCS: 87635; 99282; 99283

== ENCOUNTER 2022-10-07 07:58 | Outpatient (REF) | payer OTHER, SELFPAY ==
--- NOTE | ~2022-10-07 | US_ITS ---
EXAMINATION: US ABDOMEN COMPLETE CLINICAL INFORMATION: Alcohol dependence, uncomplicated. Severe alcohol use disorder. COMPARISON: CT abdomen and pelvis with contrast 05/30/2019. TECHNIQUE: Real-time imaging of the abdominal viscera. FINDINGS: PANCREAS: There is mild dilatation of the main pancreatic duct in the head of the pancreas measuring 4 mm. The body and head of the pancreas are normal. The tail the pancreas is not well visualized due to bowel gas. ABDOMINAL AORTA: The proximal abdominal aorta is not well visualized. The distal abdominal aorta are normal in caliber. INFERIOR VENA CAVA: Visualized portions are normal. LIVER: Normal. The liver is normal in size. The liver contour is normal. Parenchymal echogenicity is normal. No focal hepatic lesion. There is no intrahepatic biliary duct dilatation seen. GALLBLADDER: Normal. The gallbladder is physiologically distended without evidence of stones, sludge, polyps, wall thickening or pericholecystic fluid. COMMON BILE DUCT: Normal in caliber measuring 0.4 cm in diameter. RIGHT KIDNEY: Small cysts in the medial upper pole measuring 1.6 x 1.3 x 1.3 cm. No hydronephrosis or renal calculi. The kidney measures 11.1 cm in maximum dimension. LEFT KIDNEY: Small cyst in the lateral lower pole measuring 9 x 8 x 5 mm. No hydronephrosis or renal calculi. The kidney measures 10.9 cm in maximum dimension. SPLEEN: Not well visualized. The spleen is small. The spleen measures 7.31 cm in maximum dimension. FREE FLUID: None. US/US abdomen complete IMPRESSION: Normal-appearing liver. Mild dilatation of the main pancreatic duct in the head of the pancreas. Small bilateral renal cysts. Small spleen.
== END 2022-10-07 07:59 | disposition home or self-care (01) ==
LOC: HO.US 07:58
PROVIDERS: Visit Provider Family Medicine
DX: F10.20 Alcohol dependence, uncomplicated (principal)
CPT/HCPCS: 76700

== ENCOUNTER 2022-11-25 07:56 | Outpatient (REF) | payer OTHER, SELFPAY ==
--- NOTE | ~2022-11-25 | CT_ITS ---
EXAMINATION: CT ABDOMEN WITHOUT CONTRAST CLINICAL INFORMATION: Dilation of pancreatic duct. COMPARISON: CT abdomen and pelvis 05/30/2019. Ultrasound abdomen complete 10/07/2022 TECHNIQUE: Contiguous axial thin section helical images of the abdomen were performed without contrast. The data set was reformatted in the coronal and sagittal planes and reviewed on an independent workstation. This CT examination was performed using dose optimization techniques as appropriate, variously including the following: *Automated exposure control *Adjustment of mA and/or kV according to patient size (this includes techniques or standardized protocols for targeted exams where dose is matched to indication/reason for exam; i.e. extremities or head) *Use of iterative reconstruction technique DLP: 145 mGy-cm FINDINGS: LUNG BASES: The lung bases are clear. Heart size is normal. There is mild thickening of distal esophagus and GE junction. LIVER, GALLBLADDER, BILIARY TREE: The liver is homogeneous in density, normal contour and size. No focal lesion or intrahepatic ductal dilatation seen. There are no radiopaque gallstones or wall thickening. Extrahepatic common bile duct is normal caliber. PANCREAS: The pancreas is normal size and density. Pancreatic duct is not visualized and nondilated. SPLEEN: Unremarkable ADRENAL GLANDS AND KIDNEYS: Bilateral adrenal glands are unremarkable. Both kidneys are normal size, shape and position. No focal lesion or radiopaque renal calculi seen. No hydronephrosis seen. BOWEL LOOPS: Scattered stool and gas is seen throughout the colon without distention. The small bowel loops are normal caliber. The appendix is not visualized. The stomach is nondistended. LYMPH NODES: Normal. VASCULAR: Unremarkable. BONES: No aggressive lytic or sclerotic process seen. There is mild ventral spondylosis. CT/CT abdomen wo IV con IMPRESSION: 1. No acute intra-abdominal process seen. 2. Mild thickening of distal esophagus and GE junction. Correlate with clinical exam. Fleischner guidelines were followed.
[2022-11-26 13:37] LABS: Creatinine POC 0.6 mg/dL (0.5-1.4); GFR POC > 60
== END 2022-11-25 07:57 | disposition home or self-care (01) ==
LOC: HO.CT 07:56
PROVIDERS: PCP Family Medicine; Visit Provider Family Medicine
DX: K86.89 Other specified diseases of pancreas (principal)
CPT/HCPCS: 74150; 82565

== ENCOUNTER 2023-01-27 13:39 | Emergency (ER) | payer OTHER, SELFPAY ==
--- NOTE | ~2023-01-27 | XR_ITS ---
EXAMINATION: XR CHEST CLINICAL INFORMATION: Cough COMPARISON: 04/29/2020 TECHNIQUE: Frontal view of the chest was obtained. FINDINGS: The lungs are well expanded. There is no focal consolidation, edema, or effusion. No pneumothorax. The cardiomediastinal silhouette is within normal limits. No acute osseous abnormality. XR/XR chest 1V IMPRESSION: Clear lungs.
--- NOTE | 2023-01-27 13:51 | ECG_ITS ---
Test Reason : ETOH Blood Pressure : / mmHG Vent. Rate : 094 BPM Atrial Rate : 094 BPM P-R Int : 112 ms QRS Dur : 084 ms QT Int : 372 ms P-R-T Axes : 063 046 052 degrees QTc Int : 465 ms Normal sinus rhythm Normal ECG When compared with ECG of 23-JAN-2022 16:45, No significant change was found Referred By: Farrah Rothman Electronically Signed By:SUSU SANCHES MD
[2023-01-27 13:58] VITALS: BP 139/87; BP 151/87; PULSE 103; PULSE 92; RESP 18; TEMP 36.8; O2SAT 97; BMI 22.3
[2023-01-27 14:18] LABS: MANUAL DIFF FLAG NO
[2023-01-27 14:21] LABS: Basophils Percent Auto 0.2 % (0-2); Hematocrit 44.2 % (42.0-52.0); Hemoglobin 14.8 g/dl (14.0-18.0); Imm Gran Abs Auto 0.04 X10*3/uL (0.00-0.03); Imm Gran Pct Auto 0.3 % (0.0-0.4); Lymphocytes Absolute Auto 1.1 X10*3/uL (1.2-4.9); Lymphocytes Percent Auto 9.6 % (20-40); Mean Corpuscular HGB Conc 33.5 g/dl (31.0-36.0); Mean Corpuscular Hemoglobin 28.7 pg (27.0-33.0); Mean Corpuscular Volume 85.8 fL (80.0-98.0); Mean Platelet Volume 9.8 fL (9.4-12.4); Monocytes Absolute Auto 1.2 X10*3/uL (0.1-1.2); Monocytes Percent Auto 10.1 % (2-11); Neutrophils Absolute Auto 9.3 x10*3/uL (2.0-8.3); Neutrophils Percent Auto 79.8 % (45-73); Platelet Count 171 X10*3/uL (160-400); Red Blood Count 5.15 X10*6/uL (4.60-5.80); Red Cell Distribution Width 13.2 % (11.0-16.0); White Blood Count 11.6 X10*3/uL (4.8-10.8)
[2023-01-27] MEDS: ondansetron HCL 4 MG/2 ML VIAL IVPUSH (14:24)
[2023-01-27 14:30] VITALS: BP 162/88; PULSE 90; RESP 19; O2SAT 97
[2023-01-27 14:30] LABS: INTERNATIONAL NORM RATIO 1.1 (0.9-1.1); Prothrombin Time 12.1 SEC (10.0-13.1)
--- NOTE | 2023-01-27 14:33 | ED_ITS ---
HPI - General Adult General Chief complaint: General Medical Stated complaint: n/v x2 days Time Seen by Provider: 01/27/23 13:51 Source: patient Mode of arrival: EMS History of Present Illness HPI narrative: 57-year-old male, everyday drinker, reports between 5-8 tall boy beers every day and states that he has been having nausea and vomiting the prevented him from further drinking but he was able to have additional alcohol this morning. Patient states that during the vomiting he developed difficulty breathing with chest pain. He is not interested in detox at this time. He denies any blood in the vomiting. Related Data Home Medications Medication Instructions Recorded Confirmed No Known Home Meds 02/06/22 02/06/22 Allergies Allergy/AdvReac Type Severity Reaction Status Date / Time No Known Allergies Allergy Verified 12/29/21 12:55 [No Known Allergies*] Review of Systems Review of Systems: Please see the discussion above [facility] Past Medical History Source: nursing notes reviewed Medical History ETOH abuse Social History Social History Alcohol intake: current Alcohol intake frequency: 3 or more drinks per day Alcohol type: hard liquor Patient Tobacco Use Status: Never used Tobacco Advance Directives: No Advance Directives Information Provided: Yes Physical Exam ED Vital Signs: Vital Signs - 24 hr 01/27/23 13:58 01/27/23 14:30 01/27/23 14:40 Temperature 98.3 F 98.7 F Pulse Rate 92 90 88 Respiratory Rate 18 19 18 Blood Pressure 151/87 H 162/88 H 163/96 H Pulse Oximetry 97 97 97 Oxygen Delivery Method Room Air Room Air Room Air BMI result Body Mass Index 22.3 VITAL SIGNS: Reviewed. GENERAL: Chronically ill, in no acute distress. HEAD: Normocephalic/atraumatic EYES: PERRLA, EOMI EARS: Ext canals without abnormality NOSE: Nares patent bilateral OROPHARYNX: no oral lesions noted, posterior pharynx clear NECK: Supple, no adenopathy LUNGS: Normal breath sounds. No adventitious sounds or accessory muscle use. SpO2<97> CARDIOVASCULAR: Regular rate and rhythm without noted murmurs, no JVD or lower extremity edema. ABDOMEN: Soft, epigastric pain, non-distended with bowel sounds. MUSCULOSKELETAL: No tenderness, deformities, or effusions noted on gross inspection. EXTREMITIES: No cyanosis, clubbing or edema. SKIN: Inspection of the skin reveals no rashes NEUROLOGIC: Alert and oriented x 4. Strength and sensation to light touch were grossly intact x 4. Medications Administered Discontinued Medications Generic Name Dose Route Start Last Admin Trade Name Bassam PRN Reason Stop Dose Admin Al Hydroxide/Mg Hydroxide 30 ml 01/27/23 15:28 01/27/23 15:35 Magnesium Hydrox/Alum Hydrox 30 Ml Oral.Susp PO 01/27/23 15:29 30 ml ONCE ONE Administration Famotidine 20 mg 01/27/23 15:28 01/27/23 15:35 Famotidine/Pf 20 Mg/2 Ml Vial IVPUSH 01/27/23 15:29 20 mg ONCE ONE Administration Lidocaine HCl 10 ml 01/27/23 15:28 01/27/23 15:35 Lidocaine Hcl Viscous 2 % 15 Ml Solution MUCOUS MEM 01/27/23 15:29 10 ml ONCE ONE Administration Ondansetron HCl 4 mg 01/27/23 13:51 01/27/23 14:24 Ondansetron Hcl 4 Mg/2 Ml Vial IVPUSH 01/27/23 13:52 4 mg ONCE ONE Administration Medical Decision Making Medical Decision Making [facility] Narrative: 1435: 57-year-old male in whom I suspect possible pancreatitis versus alcoholic gastritis and component of dehydration. After review of all investigations patient is feeling much better, rehydrated, there is no evidence of pancreatitis patient appears to have a stress leukocytosis and is otherwise tolerating food and water. He is discharged home in stable condition. Differential Diagnosis Please see the discussion above Lab Data Please see the discussion above 01/27/23 14:13 01/27/23 14:13 Labs: Lab Results 01/27/23 01/27/23 01/27/23 Range/Units 14:13 14:13 14:13 WBC 11.6 H (4.8-10.8) X10*3/uL RBC 5.15 (4.60-5.80) X10*6/uL Hgb 14.8 (14.0-18.0) g/dl Hct 44.2 (42.0-52.0) % MCV 85.8 (80.0-98.0) fL MCH 28.7 (27.0-33.0) pg MCHC 33.5 (31.0-36.0) g/dl RDW 13.2 (11.0-16.0) % Plt Count 171 (160-400) X10*3/uL MPV 9.8 (9.4-12.4) fL Immature Gran % (Auto) 0.3 (0.0-0.4) % Neut % (Auto) 79.8 H (45-73) % Lymph % (Auto) 9.6 L (20-40) % O'Brien % (Auto) 10.1 (2-11) % Eos % (Auto) 0.0 (0-4) % Baso % (Auto) 0.2 (0-2) % Lymph # (Auto) 1.1 L (1.2-4.9) X10*3/uL O'Brien # (Auto) 1.2 (0.1-1.2) X10*3/uL Eos # (Auto) 0.0 (0.0-0.4) X10*3/uL Baso # (Auto) 0.0 (0.0-0.2) X10*3/uL Abs Immat Gran (auto) 0.04 H (0.00-0.03) X10*3/uL Absolute Neuts (auto) 9.3 H (2.0-8.3) x10*3/uL Absolute Nucleated RBC 0.000 (0.0-0.012) X10*3/uL Nucleated RBC % (auto) 0.0 (0.0-0.2) /100WBC PT 12.1 (10.0-13.1) SEC INR 1.1 (0.9-1.1) Sodium 134 L (135-145) mmol/L Potassium 3.6 (3.3-5.1) mmol/L Chloride 85 L D (96-108) mmol/L Carbon Dioxide 34 H (22-29) mmol/L Anion Gap 19 (12-20) BUN 17 H (9-16) mg/dL Creatinine 0.98 (0.5-1.4) mg/dL Estim Creat Clear Calc 69.7 Estimated GFR > 60 Random Glucose 116 H (60-115) mg/dL Calcium 9.8 D (8.4-10.2) mg/dL Magnesium 1.8 (1.6-2.6) mg/dL Total Bilirubin 1.9 H (0.0-1.0) mg/dL AST 68 H (5-37) U/L ALT 45 H (0-40) U/L Alkaline Phosphatase 85 (39-117) U/L Total Protein 8.9 H (6.5-8.0) g/dL Albumin 4.4 (3.5-5.0) g/dL Lipase 50 (8-78) U/L Urine Color Urine Appearance Urine pH (5.0-9.0) Ur Specific [place] (1.005-1.025) Urine Protein (Neg-Trace) mg/dL Urine Glucose (UA) (Negative) mg/dL Urine Ketones (Negative) mg/dL Urine Blood (Negative) Urine Nitrite (Negative) Ur Leukocyte Esterase (Negative) Urine RBC (0-2) /HPF Urine WBC (0-5) /HPF Ur Squamous Epith Cells (0-2) /HPF Urine Bacteria (None Seen) Hyaline Casts (0-2) /LPF 01/27/23 Range/Units 16:12 WBC (4.8-10.8) X10*3/uL RBC (4.60-5.80) X10*6/uL Hgb (14.0-18.0) g/dl Hct (42.0-52.0) % MCV (80.0-98.0) fL MCH (27.0-33.0) pg MCHC (31.0-36.0) g/dl RDW (11.0-16.0) % Plt Count (160-400) X10*3/uL MPV (9.4-12.4) fL Immature Gran % (Auto) (0.0-0.4) % Neut % (Auto) (45-73) % Lymph % (Auto) (20-40) % O'Brien % (Auto) (2-11) % Eos % (Auto) (0-4) % Baso % (Auto) (0-2) % Lymph # (Auto) (1.2-4.9) X10*3/uL O'Brien # (Auto) (0.1-1.2) X10*3/uL Eos # (Auto) (0.0-0.4) X10*3/uL Baso # (Auto) (0.0-0.2) X10*3/uL Abs Immat Gran (auto) (0.00-0.03) X10*3/uL Absolute Neuts (auto) (2.0-8.3) x10*3/uL Absolute Nucleated RBC (0.0-0.012) X10*3/uL Nucleated RBC % (auto) (0.0-0.2) /100WBC PT (10.0-13.1) SEC INR (0.9-1.1) Sodium (135-145) mmol/L Potassium (3.3-5.1) mmol/L Chloride (96-108) mmol/L Carbon Dioxide (22-29) mmol/L Anion Gap (12-20) BUN (9-16) mg/dL Creatinine (0.5-1.4) mg/dL Estim Creat Clear Calc Estimated GFR Random Glucose (60-115) mg/dL Calcium (8.4-10.2) mg/dL Magnesium (1.6-2.6) mg/dL Total Bilirubin (0.0-1.0) mg/dL AST (5-37) U/L ALT (0-40) U/L Alkaline Phosphatase (39-117) U/L Total Protein (6.5-8.0) g/dL Albumin (3.5-5.0) g/dL Lipase (8-78) U/L Urine Color Dark Yellow Urine Appearance Clear Urine pH 7.0 (5.0-9.0) Ur Specific [place] 1.015 (1.005-1.025) Urine Protein 30 (1+) H (Neg-Trace) mg/dL Urine Glucose (UA) Negative (Negative) mg/dL Urine Ketones Trace (Negative) mg/dL Urine Blood Negative (Negative) Urine Nitrite Negative (Negative) Ur Leukocyte Esterase Trace H (Negative) Urine RBC 0-2 (0-2) /HPF Urine WBC 0-5 (0-5) /HPF Ur Squamous Epith Cells 0-2 (0-2) /HPF Urine Bacteria None Seen (None Seen) Hyaline Casts 11-20 (0-2) /LPF Independent Interpretation I performed an independent interpretation of an: EKG Interpretation: Normal sinus rhythm, HR-94, no STEMI, WA/QRS/QTC are within normal limits. Radiology Impression Radiologist Impression: My interpretation is in agreement with radiology's impression. External Record Review External record reviewed: Prior outpatient labs Discharge Plan Discharge Clinical Impression: Alcoholic gastritis Patient Disposition: Home, Self-Care Instructions: Gastritis (ED), Diet for Stomach Ulcers and Gastritis (ED) Additional Instructions: Return to the ER for any worsening symptoms. Prescriptions: No Action No Known Home Meds Rx Instructions: Off medication for over a year Print Language: Telugu
[2023-01-27 14:37] LABS: Alanine Aminotransferase 45 U/L (0-40); Albumin Level 4.4 g/dL (3.5-5.0); Alkaline Phosphatase 85 U/L (39-117); Anion Gap 19 (12-20); Aspartate Amino Transferase 68 U/L (5-37); Bilirubin Total 1.9 mg/dL (0.0-1.0); Blood Urea Nitrogen 17 mg/dL (9-16); Calcium 9.8 mg/dL (8.4-10.2); Carbon Dioxide 34 mmol/L (22-29); Chloride 85 mmol/L (96-108); Creatinine Clr Calc Pharmacy 69.7; Estimated Glomerular Filt Rate > 60; Glucose Random 116 mg/dL (60-115); Lipase 50 U/L (8-78); Potassium 3.6 mmol/L (3.3-5.1); Sodium 134 mmol/L (135-145); Total Protein 8.9 g/dL (6.5-8.0)
[2023-01-27 14:40] VITALS: BP 163/96; PULSE 88; RESP 18; TEMP 37.1; O2SAT 97
[2023-01-27 14:49] LABS: Magnesium 1.8 mg/dL (1.6-2.6)
[2023-01-27] MEDS: Lidocaine HCl Viscous 2 % 15 ML SOLUTION 10 ML MUCOUS MEM (15:35)
[2023-01-27] MEDS: Famotidine/PF 20 MG/2 ML VIAL IVPUSH (15:35)
[2023-01-27] MEDS: Magnesium Hydrox/Alum Hydrox 30 ML ORAL.SUSP PO (15:35)
[2023-01-27 16:28] LABS: Appearance Urine Clear; Color Urine Dark Yellow; Glucose Urine UA Negative (Negative); Leukocyte Esterase Urine Trace (Negative); Nitrite Urine Negative (Negative); Specific Gravity - Urine 1.015 (1.005-1.025); UMIC TRIGGER UACC YES; Urine Blood Negative (Negative); Urine Ketones Trace mg/dL (Negative); Urine Protein 30 (1+) mg/dL (Neg-Trace)
[2023-01-27 16:37] LABS: Bacteria Urine None Seen (None Seen); RBC Urine 0-2 /HPF (0-2); Squamous Epithelial Cell Urine 0-2 /HPF (0-2); WBC Urine 0-5 /HPF (0-5)
[2023-01-27 17:12] VITALS: BP 139/79; PULSE 100; RESP 12; TEMP 36.5; O2SAT 96
== END 2023-01-27 17:51 | disposition home or self-care (01) ==
PROVIDERS: Emergency Provider Student in an Organized Health Care Education/Training Program
DX: K29.20 Alcoholic gastritis without bleeding (principal); R05.9 Cough, unspecified; R11.2 Nausea with vomiting, unspecified; R07.89 Other chest pain; R06.02 Shortness of breath; Z79.899 Other long term (current) drug therapy
CPT/HCPCS: 36415; 71045; 80053; 81001; 83690; 83735; 85025; 85610; 93005; 96374; 96375; 99284; J2405

== ENCOUNTER 2023-02-15 19:56 | Emergency (ER) | payer OTHER, SELFPAY ==
[2023-02-15 20:05] VITALS: BP 121/75; BP 126/80; PULSE 78; PULSE 84; RESP 18; TEMP 36.6; O2SAT 97; O2SAT 98; BMI 21.8
--- NOTE | 2023-02-15 20:05 | ED.FALL ---
HPI - Fall General Chief Complaint: ETOH/Substance Use Stated Complaint: Fall/ ETOH Time Seen by Provider: 02/15/23 20:04 Source: patient and EMS Mode of arrival: EMS Limitations: no limitations History of Present Illness HPI Narrative: Patient drinking beer lost balance and fell on the curb side transient loss of consciousness felt dizzy hitting his head to the ground no other injury Related Data Home Medications Medication Instructions Recorded Confirmed No Known Home Meds 02/06/22 02/06/22 Allergies Allergy/AdvReac Type Severity Reaction Status Date / Time No Known Allergies Allergy Verified 12/29/21 12:55 [No Known Allergies*] Review of Systems Review of Systems: Yes all other systems are reviewed and are negative PMFSH Past Medical History Medical History ETOH abuse Social History Social History Alcohol intake: current Alcohol intake frequency: 3 or more drinks per day Alcohol type: beer Patient Tobacco Use Status: Never used Tobacco Smoked in Last 30 Days: Yes Use of substances other than those prescribed or required for medical reasons: No Advance Directives: No Advance Directives Information Provided: No Physical Exam Vital Signs: Vital Signs: Last Vital Signs Temp 97.8 F 02/15/23 20:05 Pulse 78 02/15/23 20:05 Resp 18 02/15/23 20:05 BP 121/75 02/15/23 20:05 Pulse Ox 97 02/15/23 20:05 O2 Del Method Room Air 02/15/23 20:05 BMI result Body Mass Index 21.8 Appearance: Alert. Oriented X3. No acute distress. ETOH++ Eyes: PERRLA, No Nystagmus ENT: Pharynx normal. Oral Mucosa moist Neck: Normal inspection. Neck supple. In cervical collar CVS: Normal heart rate and rhythm. Pulses normal. Respiratory: No respiratory distress. Equal air entry bilateral, no wheezing/rales/rhonchi Abdomen: Soft and nontender. Bowel sounds are present, no mass palpable, no CVA tenderness Skin: Skin warm and dry. Normal skin color. Normal skin turgor. Extremities: No lower extremity edema. No calf tenderness Neuro: Oriented X 3. No motor deficit. No sensory deficit.No cerebellar signs , cranial nerves II-XII intact Medical Decision Making Medical Decision Making MDM Narrative: Patient ambulatory in the ED head CT and C-spine CT negative no significant injuries notice left 4th finger has superficial abrasion laceration which was not bleeding a band aid was applied Discharge Plan Discharge Clinical Impression: Fall, Alcoholic intoxication Patient Disposition: Home, Self-Care Instructions: Abuse of Alcohol (ED), Fall Prevention (ED) Additional Instructions: Stop drinking alcohol follow up with detox Prescriptions: No Action No Known Home Meds Rx Instructions: Off medication for over a year
--- NOTE | 2023-02-15 20:16 | PC.NURSE ---
Pt arrived via ems in a cervical collar after a fall and drinking alcohol
--- NOTE | 2023-02-15 20:48 | PC.NURSE ---
pt to ct-scan
== END 2023-02-15 22:00 | disposition home or self-care (01) ==
PROVIDERS: Emergency Provider Internal Medicine
DX: R55 Syncope and collapse (principal); F10.129 Alcohol abuse with intoxication, unspecified; S06.9X9A Unspecified intracranial injury with loss of consciousness of unspecified duration, initial encounter; W17.89XA Other fall from one level to another, initial encounter; Y93.9 Activity, unspecified; Y92.9 Unspecified place or not applicable; Y99.9 Unspecified external cause status
CPT/HCPCS: 70450; 72125; 99284

== ENCOUNTER 2023-04-16 12:56 | Emergency (ER) | payer OTHER, SELFPAY ==
--- NOTE | ~2023-04-16 | XR_ITS ---
EXAMINATION: XR CHEST CLINICAL INFORMATION: Syncope COMPARISON: Chest radiograph from 01/27/2023 TECHNIQUE: 2 views of the chest were obtained. FINDINGS: Bilateral low lung volumes. Accentuation of the bronchopulmonary vascular markings. No pneumothorax. Trachea is midline. Cardiac mediastinal silhouette is not enlarged. No large pleural effusion. Degenerative changes of the thoracolumbar spine. Soft tissues are unremarkable. XR/XR chest 2V IMPRESSION: 1. Bilateral low lung volumes. 2. Accentuation of the bronchopulmonary vascular markings.
--- NOTE | ~2023-04-16 | CT_ITS ---
EXAMINATION: CT HEAD WITHOUT CONTRAST CLINICAL INFORMATION: Syncope hit head COMPARISON: CT head from 02/15/2023 TECHNIQUE: Contiguous axial imaging was performed from the skull base to vertex without intravenous administration of contrast. This CT examination was performed using dose optimization techniques as appropriate, variously including the following: *Automated exposure control *Adjustment of mA and/or kV according to patient size (this includes techniques or standardized protocols for targeted exams where dose is matched to indication/reason for exam; i.e. extremities or head) *Use of iterative reconstruction technique DLP: 981 mGy-cm FINDINGS: There is no evidence of acute intracranial hemorrhage or territorial infarction. Chronic white matter small vessel ischemic changes. Cerebral atrophy with commensurate ventricular changes. No abnormal mass effect or midline shift is seen. Fenton to white matter differentiation is well preserved. No extra-axial fluid collections are identified. There is no abnormal attenuation within the brain parenchyma. The osseous structures and soft tissues are normal. The mastoid air cells and visualized portions of the paranasal sinuses are well aerated. CT/CT cervical spine wo IV con IMPRESSION: 1. No acute intracranial pathology. 2. Chronic white matter small vessel ischemic changes. EXAMINATION: Noncontrast CT scan of the cervical spine. INDICATION: Status post fall COMPARISON: CT cervical spine from 02/15/2023 TECHNIQUE: Helical, multidetector axial images were obtained from the occiput to the upper thorax. Coronal and sagittal reformats of the cervical spine were provided for interpretation. DLP: 981 mGy-cm FINDINGS: No acute fractures or dislocations of the cervical spine are seen. Multilevel degenerative changes. Anatomic alignment and positioning of the vertebral bodies and posterior elements is noted. The atlantoaxial joint and craniovertebral articulations are normal without evidence of subluxation. There is no prevertebral soft tissue swelling. The visualized portions of the lung apices and mediastinum are unremarkable. IMPRESSION: 1. No acute visible fracture or dislocation. 2. Multilevel degenerative changes.
[2023-04-16 13:11] VITALS: BP 102/59; BP 140/89; PULSE 82; PULSE 91; RESP 16; TEMP 37.2; O2SAT 89; O2SAT 93; BMI 22.6
--- NOTE | 2023-04-16 13:24 | ECG_ITS ---
Test Reason : SYNCOPE Blood Pressure : / mmHG Vent. Rate : 077 BPM Atrial Rate : 077 BPM P-R Int : 126 ms QRS Dur : 092 ms QT Int : 358 ms P-R-T Axes : 068 063 067 degrees QTc Int : 405 ms Normal sinus rhythm Normal ECG When compared with ECG of 27-JAN-2023 14:07, QT has shortened Referred By: Naima Quiroz Electronically Signed By:YOSELIN SHANKAR
--- NOTE | 2023-04-16 13:29 | ED.FALL ---
HPI - Fall General Chief Complaint: Fall Stated Complaint: fall Time Seen by Provider: 04/16/23 13:13 Source: patient and EMS Mode of arrival: EMS Limitations: no limitations History of Present Illness HPI Narrative: 57-year-old male with history of alcohol use disorder presents to the ER after a witnessed fall. Patient reports his walking [address] the street when he felt dizzy and lightheaded and then he fell to the ground hitting his head. He believes he had loss of consciousness. Per EMS patient had a witnessed syncopal episode. Patient reports he had 4-5 beers today. Denies additional substance use. Denies any history of seizures. Denies any incontinence of urine or stool. He currently has no physical complaints. He denies headache, neck pain, chest pain, abdominal pain, vision changes, vomiting. Related Data Home Medications Medication Instructions Recorded Confirmed No Known Home Meds 02/06/22 02/06/22 Allergies Allergy/AdvReac Type Severity Reaction Status Date / Time No Known Allergies Allergy Verified 04/16/23 13:11 [No Known Allergies*] Review of Systems Review of Systems: Yes all other systems are reviewed and are negative Constitutional: Constitutional: Reports no additional constitutional complaints, Denies body ache(s), Denies chills, Denies fever(s), Denies headache(s) and Denies weakness Eyes: Eyes: Reports no additional eye complaints and Denies change in vision ENT: Reports system reviewed and no additional complaints, except as documented, Reports dizziness, Denies headache(s), Denies nasal congestion, Denies nasal discharge and Denies neck pain Cardiovascular: Cardiovascular: Reports no additional cardiovascular complaints, Denies chest pain, Denies leg edema and Denies dyspnea Respiratory: Respiratory: Reports no additional respiratory complaints, Denies cough and Denies dyspnea Gastrointestinal: Gastrointestinal: Reports no additional gastrointestinal complaints, Denies abdominal pain, Denies diarrhea, Denies nausea and Denies vomiting Genitourinary: Genitourinary: Denies urinary incontinence Musculoskeletal: Musculoskeletal: Reports no additional musculoskeletal complaints, Denies back pain, Denies arthralgias, Denies joint swelling, Denies neck pain, Denies numbness and Denies tingling Integumentary/Breasts: Skin/Breast: Reports system reviewed and no additional complaints, except as docu and Denies rash Neurologic: Reports system reviewed and no additional complaints, except as documented, Denies Abnormal speech present, Reports dizziness, Denies headache(s), Denies numbness, Denies tingling and Denies weakness PMFSH Past Medical History Attestation statement: The following information was validated with the patient. Source: nursing notes reviewed Medical History ETOH abuse Social History Social History Alcohol intake: current Alcohol intake frequency: 3 or more drinks per day Alcohol type: beer Patient Tobacco Use Status: Never used Tobacco Advance Directives: No Advance Directives Information Provided: No Physical Exam Vital Signs: Vital Signs: Last Vital Signs Temp 97.4 F 04/16/23 15:19 Pulse 82 04/16/23 15:22 Resp 20 04/16/23 15:19 BP 103/63 04/16/23 15:22 Pulse Ox 97 04/16/23 15:19 O2 Del Method Room Air 04/16/23 15:19 BMI result Body Mass Index 22.6 Const: General: cooperative, healthy appearing, comfortable and no acute distress Orientation/consciousness: patient oriented x3 Limitations: no limitations HEENT: Head: Yes normal to inspection Ears: hearing grossly normal bilaterally General nose exam: Normal external nose present Face and sinus: Yes normal facial exam Mouth: Normal oral and palatal mucosa present Throat: Yes posterior oropharynx normal Eyes: General: appearance normal, both eyes and all related structures Pupils: Equal, round and reactive pupils present Neck: Other: No cervical midline tenderness, step-offs or deformities Neck: Yes normal visual inspection and Yes full ROM Chest: Chest palpation & inspection: normal inspection of the chest Resp: Effort & Inspection: normal respiratory effort Auscultation: clear to auscultation bilaterally Cardio: Rate: regular rate Rhythm: regular rhythm Peripheral pulses: Peripheral pulses 2+ throughout GI: Inspection: Yes normal to inspection Palpation (GI): Soft to palpation and nontender Auscultation: normal bowel sounds Back/Spine/Pelvis: Thoracic/Lumbar Spine: thoracic and lumbar spine normal to inspection Skin: General skin exam: no rashes or lesions noted Neuro: General: patient oriented x3, moves all extremities, no focal motor deficits and normal sensation to monofilament Cranial nerves: Yes CN's II-XII intact bilaterally, Yes Equal, round and reactive pupils present, Yes Bilaterally intact EOM present, Yes Nystagmus not present, Yes Normal facial strength present and Yes Midline tongue present Cognition (Neuro): normal cognition Speech: No Abnormal speech present Gait exam (Neuro): Normal gait present Motor exam (neuro): 5/5 motor strength present throughout Sensory Exam: Normal double simultaneous stimulation for sensation Extrem: General: Yes normal to inspection Course Course Course Narrative: Labs are unremarkable with exception of elevated ethanol. Orthostatics are negative. Imaging unremarkable. Plan for sober re-evaluation and discharge home. Reevaluation(s) Reevaluation #1: 1600-Sign out to Karon GALVEZ pending sober re-eval Medical Decision Making Medical Decision Making [facility] Narrative: 57-year-old male with history of alcohol use disorder presents to the ER after a witnessed fall.? Patient reports his walking [address] the street when he felt dizzy and lightheaded and then he fell to the ground hitting his head.? He believes he had loss of consciousness.? Per EMS patient had a witnessed syncopal episode.? Patient reports he had 4-5 beers today.? Denies additional substance use.? Denies any history of seizures.? Denies any incontinence of urine or stool.? He currently has no physical complaints.? He denies headache, neck pain, chest pain, abdominal pain, vision changes, vomiting. Normal neuro with no focal deficit Will check labs, EKG, orthostatics, chest x-ray, CT head and cervical spine, POC Differential Diagnosis Differential Diagnoses: The differential diagnosis associated with the presentation includes Anemia, electrolyte abnormality, arrhythmia, ACS (less likely with nonischemic EKG, flat troponins), seizure (less likely with normal lactic acid, no postictal state) Alcohol intoxication PE-PERC o, low concern Low concern for SAH with negative ct head, normal neuro Admission/Observation Consideration of admission/observation: Escalation of care including admission/observation considered Does not sound like true syncope with negative w/u in the ER, likely secondary to alcohol intoxication Lab Data [facility] Lab Attestation statement: I reviewed the patient's lab results. Alcohol level elevated, otherwise unremarkable 04/16/23 14:42 04/16/23 14:42 Labs: Lab Results 04/16/23 04/16/23 04/16/23 Range/Units 14:28 14:42 14:42 WBC 6.5 (4.8-10.8) X10*3/uL RBC 4.66 (4.60-5.80) X10*6/uL Hgb 13.2 L (14.0-18.0) g/dl Hct 39.6 L (42.0-52.0) % MCV 85.0 (80.0-98.0) fL MCH 28.3 (27.0-33.0) pg MCHC 33.3 (31.0-36.0) g/dl RDW 15.0 (11.0-16.0) % Plt Count 241 D (160-400) X10*3/uL MPV 9.0 L (9.4-12.4) fL Immature Gran % (Auto) 0.3 (0.0-0.4) % Neut % (Auto) 56.9 (45-73) % Lymph % (Auto) 29.8 (20-40) % [place] % (Auto) 9.0 (2-11) % Eos % (Auto) 3.4 (0-4) % Baso % (Auto) 0.6 (0-2) % Lymph # (Auto) 1.9 (1.2-4.9) X10*3/uL [place] # (Auto) 0.6 (0.1-1.2) X10*3/uL Eos # (Auto) 0.2 (0.0-0.4) X10*3/uL Baso # (Auto) 0.0 (0.0-0.2) X10*3/uL Abs Immat Gran (auto) 0.02 (0.00-0.03) X10*3/uL Absolute Neuts (auto) 3.7 (2.0-8.3) x10*3/uL Absolute Nucleated RBC 0.000 (0.0-0.012) X10*3/uL Nucleated RBC % (auto) 0.0 (0.0-0.2) /100WBC PT 12.7 (11.1-13.3) SEC INR 1.0 (0.9-1.1) Sodium (135-145) mmol/L Potassium (3.3-5.1) mmol/L Chloride (96-108) mmol/L Carbon Dioxide (22-29) mmol/L Anion Gap (12-20) BUN (9-16) mg/dL Creatinine (0.5-1.4) mg/dL Estim Creat Clear Calc Estimated GFR Random Glucose (60-115) mg/dL Lactic Acid 1.2 (0.5-2.0) mmol/L Calcium (8.4-10.2) mg/dL Magnesium (1.6-2.6) mg/dL Total Bilirubin (0.0-1.0) mg/dL Direct Bilirubin (0.0-0.5) mg/dL AST (5-37) U/L ALT (0-40) U/L Alkaline Phosphatase (39-117) U/L Total Creatine Kinase (38-174) U/L Troponin I High Sens (<3.5-35.0) ng/L Total Protein (6.5-8.0) g/dL Albumin (3.5-5.0) g/dL Ethyl Alcohol mg/dL 04/16/23 04/16/23 Range/Units 14:42 14:42 WBC (4.8-10.8) X10*3/uL RBC (4.60-5.80) X10*6/uL Hgb (14.0-18.0) g/dl Hct (42.0-52.0) % MCV (80.0-98.0) fL MCH (27.0-33.0) pg MCHC (31.0-36.0) g/dl RDW (11.0-16.0) % Plt Count (160-400) X10*3/uL MPV (9.4-12.4) fL Immature Gran % (Auto) (0.0-0.4) % Neut % (Auto) (45-73) % Lymph % (Auto) (20-40) % [place] % (Auto) (2-11) % Eos % (Auto) (0-4) % Baso % (Auto) (0-2) % Lymph # (Auto) (1.2-4.9) X10*3/uL [place] # (Auto) (0.1-1.2) X10*3/uL Eos # (Auto) (0.0-0.4) X10*3/uL Baso # (Auto) (0.0-0.2) X10*3/uL Abs Immat Gran (auto) (0.00-0.03) X10*3/uL Absolute Neuts (auto) (2.0-8.3) x10*3/uL Absolute Nucleated RBC (0.0-0.012) X10*3/uL Nucleated RBC % (auto) (0.0-0.2) /100WBC PT (11.1-13.3) SEC INR (0.9-1.1) Sodium 141 (135-145) mmol/L Potassium 3.6 (3.3-5.1) mmol/L Chloride 109 H D (96-108) mmol/L Carbon Dioxide 26 (22-29) mmol/L Anion Gap 10 L (12-20) BUN 5 L (9-16) mg/dL Creatinine 0.61 (0.5-1.4) mg/dL Estim Creat Clear Calc 113.4 Estimated GFR > 60 Random Glucose 115 (60-115) mg/dL Lactic Acid (0.5-2.0) mmol/L Calcium 9.4 (8.4-10.2) mg/dL Magnesium 1.6 (1.6-2.6) mg/dL Total Bilirubin 0.3 (0.0-1.0) mg/dL Direct Bilirubin 0.1 (0.0-0.5) mg/dL AST 25 (5-37) U/L ALT 11 (0-40) U/L Alkaline Phosphatase 69 (39-117) U/L Total Creatine Kinase 70 (38-174) U/L Troponin I High Sens < 2.7 (<3.5-35.0) ng/L Total Protein 7.2 (6.5-8.0) g/dL Albumin 3.8 (3.5-5.0) g/dL Ethyl Alcohol 368 H* mg/dL Independent Interpretation I performed an independent interpretation of an: EKG, Plain X-Ray and CT Scan Interpretation: I independently reviewed the EKG which is normal sinus rhythm with a rate of 77, normal ND, normal QRS normal QT I independently reviewed the CT head/CT cervical spine/CXR and agree with the radiology report Radiology Impression Discussion of test interpretation with radiology: I have reviewed the radiologist's reading. Radiologist Impression: [address] [address] XRay Report Signed Patient: Jarvis Bennett MR#: [id number] : 1965 Acct:[id number] Age/Sex: 57 / M ADM Date: 04/16/23 Loc: HO.ED Attending Dr: Ordering Physician: Naima Reyes NP Date of Service: 04/16/23 Procedure(s): XR chest 2V Accession Number(s): [id number] cc: Physician,Unknown ; Naima Reyes NP~ EXAMINATION: XR CHEST CLINICAL INFORMATION: Syncope COMPARISON: Chest radiograph from 01/27/2023 TECHNIQUE: 2 views of the chest were obtained. FINDINGS: Bilateral low lung volumes. Accentuation of the bronchopulmonary vascular markings. No pneumothorax. Trachea is midline. Cardiac mediastinal silhouette is not enlarged. No large pleural effusion. Degenerative changes of the thoracolumbar spine. Soft tissues are unremarkable. XR/XR chest 2V IMPRESSION: 1.? Bilateral low lung volumes. 2.? Accentuation of the bronchopulmonary vascular markings FINDINGS: There is no evidence of acute intracranial hemorrhage or territorial infarction. Chronic white matter small vessel ischemic changes. Cerebral atrophy with commensurate ventricular changes. No abnormal mass effect or midline shift is seen. Fenton to white matter differentiation is well preserved. No extra-axial fluid collections are identified. There is no abnormal attenuation within the brain parenchyma. The osseous structures and soft tissues are normal. The mastoid air cells and visualized portions of the paranasal sinuses are well aerated. ? CT/CT cervical spine wo IV con IMPRESSION: 1.? No acute intracranial pathology. 2.? Chronic white matter small vessel ischemic changes. ? ? EXAMINATION: Noncontrast CT scan of the cervical spine. ? INDICATION: Status post fall ? COMPARISON: CT cervical spine from 02/15/2023 ? TECHNIQUE:? Helical, multidetector axial images were obtained from the occiput to the upper thorax. Coronal and sagittal reformats of the cervical spine were provided for interpretation. ? DLP: 981 mGy-cm ? FINDINGS: No acute fractures or dislocations of the cervical spine are seen. Multilevel degenerative changes. Anatomic alignment and positioning of the vertebral bodies and posterior elements is noted. The atlantoaxial joint and craniovertebral articulations are normal without evidence of subluxation. There is no prevertebral soft tissue swelling. ? The visualized portions of the lung apices and mediastinum are unremarkable. ? IMPRESSION: 1.? No acute visible fracture or dislocation. 2.? Multilevel degenerative changes. Independent Historian Clinical information obtained from an independent historian. History obtained from or confirmed by: EMS Discharge Plan Discharge Clinical Impression: Alcohol intoxication Patient Disposition: Still a Patient Instructions: Alcohol Intoxication (ED) Prescriptions: No Action No Known Home Meds Rx Instructions: Off medication for over a year Referrals: Physician,Unknown J [Primary Care Provider] - 1 week
--- NOTE | 2023-04-16 14:30 | PC.NURSE ---
PT AMBULATING STEADILY INDEPENDENTLY WITH NO ISSUE, REQUESTING TO LEAVE, EASILY REDIRECTED. PROVIDED WITH FOOD, DRINK.
[2023-04-16 14:46] LABS: MANUAL DIFF FLAG NO
[2023-04-16 14:47] LABS: Basophils Percent Auto 0.6 % (0-2); Eosinophils Absolute Auto 0.2 X10*3/uL (0.0-0.4); Eosinophils Percent Auto 3.4 % (0-4); Hematocrit 39.6 % (42.0-52.0); Hemoglobin 13.2 g/dl (14.0-18.0); Imm Gran Abs Auto 0.02 X10*3/uL (0.00-0.03); Imm Gran Pct Auto 0.3 % (0.0-0.4); Lymphocytes Absolute Auto 1.9 X10*3/uL (1.2-4.9); Lymphocytes Percent Auto 29.8 % (20-40); Mean Corpuscular HGB Conc 33.3 g/dl (31.0-36.0); Mean Corpuscular Hemoglobin 28.3 pg (27.0-33.0); Monocytes Absolute Auto 0.6 X10*3/uL (0.1-1.2); Neutrophils Absolute Auto 3.7 x10*3/uL (2.0-8.3); Neutrophils Percent Auto 56.9 % (45-73); Platelet Count 241 X10*3/uL (160-400); Red Blood Count 4.66 X10*6/uL (4.60-5.80); White Blood Count 6.5 X10*3/uL (4.8-10.8)
[2023-04-16 14:59] LABS: Lactic Acid 1.2 mmol/L (0.5-2.0)
[2023-04-16 15:01] LABS: Prothrombin Time 12.7 SEC (11.1-13.3)
[2023-04-16 15:03] LABS: Alanine Aminotransferase 11 U/L (0-40); Albumin Level 3.8 g/dL (3.5-5.0); Alkaline Phosphatase 69 U/L (39-117); Anion Gap 10 (12-20); Aspartate Amino Transferase 25 U/L (5-37); Bilirubin Direct 0.1 mg/dL (0.0-0.5); Bilirubin Total 0.3 mg/dL (0.0-1.0); Blood Urea Nitrogen 5 mg/dL (9-16); Calcium 9.4 mg/dL (8.4-10.2); Carbon Dioxide 26 mmol/L (22-29); Chloride 109 mmol/L (96-108); Creatinine Clr Calc Pharmacy 113.4; Estimated Glomerular Filt Rate > 60; Ethanol 368 mg/dL; Glucose Random 115 mg/dL (60-115); Magnesium 1.6 mg/dL (1.6-2.6); Potassium 3.6 mmol/L (3.3-5.1); Sodium 141 mmol/L (135-145); Total Protein 7.2 g/dL (6.5-8.0)
[2023-04-16 15:13] LABS: Troponin-I High Sensitivity < 2.7 ng/L (<3.5-35.0)
[2023-04-16 15:19] VITALS: BP 112/71; PULSE 74; RESP 20; TEMP 36.3; O2SAT 97
[2023-04-16 15:21] VITALS: BP 108/67; PULSE 77
[2023-04-16 15:22] VITALS: BP 103/63; PULSE 82
--- NOTE | 2023-04-16 16:19 | PC.NURSE ---
PT CURRENTLY SLEEPING IN [facility] IN [facility]. PENDING DISPO
== END 2023-04-16 17:00 | disposition left against medical advice (07) ==
PROVIDERS: Nurse Practitioner Family; Emergency Provider Emergency Medicine
DX: F10.120 Alcohol abuse with intoxication, uncomplicated (principal); Y90.8 Blood alcohol level of 240 mg/100 ml or more; R55 Syncope and collapse; F17.200 Nicotine dependence, unspecified, uncomplicated; Z91.81 History of falling
CPT/HCPCS: 36415; 70450; 71046; 72125; 80048; 80076; 80307; 82550; 83605; 83735; 84484; 85025; 85610; 93005; 99284

== ENCOUNTER 2023-09-12 10:18 | Emergency (ER) | payer OTHER, SELFPAY ==
[2023-09-12 10:36] VITALS: BP 136/73; PULSE 81; RESP 16; TEMP 36.4; O2SAT 95; BMI 22.5
[2023-09-12] MEDS: Docusate Sodium 100 MG/10 ML LIQUID PO (10:49)
--- NOTE | 2023-09-12 10:50 | PC.NURSE ---
provider to administer medication to ear
--- NOTE | 2023-09-12 10:56 | ED.EAR ---
HPI - Ear Problem General Chief complaint: Ear Problems Stated complaint: unable to hear in l ear no pain Time Seen by Provider: 09/12/23 10:38 Source: patient and RN notes reviewed Mode of arrival: ambulatory Limitations: no limitations History of Present Illness HPI Narrative: This is a 58-year-old male, with a history of ?liver problems?, who presents emergency department with complaints of left ear blockage x2 days. Patient denies any ear pain. Denies any fevers, chills, nasal congestion, sore throat, chest pain, shortness of breath, abdominal pain, nausea, vomiting or diarrhea. Denies history of similar symptoms in the past. Denies any ear drainage. He attempted to use Q-tips in his ears which did not provide him with any relief. No other complaints or concerns at this time. MD Complaint: decreased hearing Location: left ear Duration: constant Relieving factors: nothing Exacerbating factors: nothing Discharge from ear: no Associated symptoms ear: decreased hearing Treatment prior to arrival: attempt at ear wax removal Related Data Home Medications Medication Instructions Recorded Confirmed No Known Home Meds 02/06/22 02/06/22 Allergies Allergy/AdvReac Type Severity Reaction Status Date / Time No Known Allergies Allergy Verified 09/12/23 10:36 [No Known Allergies*] Review of Systems Review of Systems: Yes all other systems are reviewed and are negative [facility] Past Medical History Attestation statement: The following information was validated with the patient. Medical History ETOH abuse Social History Social History Alcohol intake: current Alcohol intake frequency: 3 or more drinks per day Alcohol type: beer Comment: Room 387-1 assigned, pt was discharged from ED Patient Tobacco Use Status: Never used Tobacco Advance Directives: No Advance Directives Information Provided: No Physical Exam Vital Signs: Vital Signs: Last Vital Signs Temp 97.5 F 09/12/23 10:36 Pulse 81 09/12/23 10:36 Resp 16 09/12/23 10:36 BP 136/73 09/12/23 10:36 Pulse Ox 95 09/12/23 10:36 O2 Del Method Room Air 09/12/23 10:36 BMI result Body Mass Index 22.5 Const: Other: General: Awake, alert, and oriented X3. No acute distress. HEENT: Bilateral ear canal is obscured by cerumen, unable to visualize TMs bilaterally. No pain with tugging to the external ear. No mastoid tenderness. Oropharynx is widely patent CVS: Normal heart rate and rhythm. Pulses normal. Respiratory: No respiratory distress Skin: Warm, dry, no rashes noted to exposed skin. Normal skin color. Normal skin turgor. Extremities: Normal to inspection Neuro: Oriented X 3. No motor deficit. No sensory deficit. Course Reevaluation(s) Reevaluation #1: Significant amount of ear wax was expressed from bilateral ear canals after irrigation. Patient tolerated procedure well. The TMs are nonerythematous, nonbulging, no evidence of infection or perforation. Patient stable for discharge. Given return precautions. Time: 12:27 Medications Administered Discontinued Medications Generic Name Dose Route Start Last Admin Trade Name Freq PRN Reason Stop Dose Admin Docusate Sodium 100 mg 09/12/23 10:42 09/12/23 10:49 Docusate Sodium 100 Mg/10 Ml Liquid PO 09/12/23 10:43 100 mg ONCE ONE Administration Procedures Ear Wax Removal Both Ears: Cerumenolytic Used: Colace Results: Re-examined: cerumen removed completely TM Examination: TM(s) intact, normal appearance Ear Canal Exam: atraumatic Patient Tolerated Procedure: well and no complications Complications: no problems Technique: ear canal irrigated and ear canal curetted Medical Decision Making Medical Decision Making MDM Narrative: 58-year-old male presenting to the emergency department for evaluation of left ear blockage x2 days. On arrival, vital signs within normal limits. He is speaking in full sentences. He is unable to hear out of his left ear for the last 2 days. Differential diagnoses include otitis media, otitis externa, cerumen impaction, TM perforation, less likely mastoiditis. Denies any associated pain or ear drainage. No other symptoms. Bilateral ear canals are obscured by wax, will perform cerumen disimpaction. Differential Diagnosis Differential Diagnoses: The differential diagnosis associated with the presentation includes See above Discharge Plan Discharge Clinical Impression: Cerumen impaction Patient Disposition: Home, Self-Care Additional Instructions: Your seen in the emergency department due to decreased hearing in your left ear. Both of your ears were impacted with ear wax. We flushed your ears, and a lot of ear wax was taken out of your ear canals. Your ears are not infected, avoid putting any Q-tips or any drops in your ears. Drink plenty of fluids get plenty of rest. If you develop any chest pain, shortness of breath, fevers, chills, worsening ear pain, please return for re-evaluation. Lo atendieron en el departamento de emergencias debido a prince disminuci?n de la audici?n en el o?do jeanette. Ambos o?dos fueron impactados con cerumen. Le lavamos los o?dos y le extrajimos rosalinda cera de los salmeron auditivos. Malika o?dos no est?n infectados, evite ponerse hisopos o gotas en los o?dos. Brittani muchos l?quidos y descanse mucho. Si presenta dolor en el pecho, dificultad para respirar, fiebre, escalofr?os o dolor de o?do que empeora, regrese para prince nueva evaluaci?n. Prescriptions: No Action No Known Home Meds Rx Instructions: Off medication for over a year Print Language: Ugandan
== END 2023-09-12 12:32 | disposition home or self-care (01) ==
PROVIDERS: Emergency Provider Emergency Medicine; PCP Family Medicine
DX: H61.22 Impacted cerumen, left ear (principal)
CPT/HCPCS: 99282; 99283

== ENCOUNTER 2023-10-16 17:15 | Emergency (ER) | payer OTHER, SELFPAY ==
[2023-10-16 17:25] VITALS: BP 120/80; PULSE 90; O2SAT 98
[2023-10-16 17:33] VITALS: BP 147/80; PULSE 80; RESP 16; TEMP 36.4; O2SAT 96; BMI 26.6
--- NOTE | 2023-10-16 17:42 | ED.GENADULT ---
HPI - General Adult General Chief complaint: ETOH/Substance Use Stated complaint: ETOH,DEPRESSION Time Seen by Provider: 10/16/23 17:21 Source: patient Mode of arrival: ambulatory Limitations: no limitations History of Present Illness HPI narrative: 58 YOLD MALE WITH PMH OF ALCOHOL ABUSE PRESENTS TO THE ED for drinking alcohol. Patient brought in by EMS for drinking alcohol on the street. patient states he was sad drinking ( depressed) because his dog was stolen. patient denies any suicidal/homicideal ideation. Patient presently not suicidal. Patient no longer depressed. Related Data Home Medications Medication Instructions Recorded Confirmed No Known Home Meds 02/06/22 02/06/22 Allergies Allergy/AdvReac Type Severity Reaction Status Date / Time No Known Allergies Allergy Verified 09/12/23 10:36 [No Known Allergies*] Review of Systems Review of Systems: drinking alcohol Yes all other systems are reviewed and are negative [facility] Past Medical History Medical History ETOH abuse Social History Social History Alcohol intake: current Alcohol intake frequency: 3 or more drinks per day Alcohol type: beer Comment: Room 387-1 assigned, pt was discharged from ED Patient Tobacco Use Status: Never used Tobacco Advance Directives: No Advance Directives Information Provided: No Physical Exam ED Vital Signs: Vital Signs - 24 hr 10/16/23 17:33 10/16/23 18:41 Temperature 97.5 F 97.6 F Pulse Rate 80 76 Respiratory Rate 16 18 Blood Pressure 147/80 H 123/64 Pulse Oximetry 96 99 Oxygen Delivery Method Room Air Room Air BMI result Body Mass Index 26.6 Const General: cooperative, healthy appearing, comfortable, no acute distress, well developed, alert and awake Orientation/consciousness: oriented to person, oriented to place, oriented to time and patient oriented x3 HENMT Head: Yes normal to inspection, Yes No palpable skull fracture present, Yes normocephalic, Yes atraumatic and No abrasion Ears: hearing grossly normal bilaterally, external ears normal, TM's normal bilaterally, TM normal on the right, TM normal on the left, EAC's normal, mastoids normal and no periauricular adenopathy Eyes General: appearance normal, both eyes and all related structures Neck Neck: Yes normal visual inspection, Yes full ROM, Yes no lymphadenopathy, Yes no meningeal signs, Yes trachea midline, Yes supple, No anterior neck swelling and No tender Chest Chest palpation & inspection: normal inspection of the chest and normal palpation of entire chest wall Resp Effort & Inspection: normal respiratory effort and able to speak in complete sentences Auscultation: clear to auscultation bilaterally Cardio Jugular venous distension: no JVD Heart sounds: S1 normal heart sound present and S2 normal heart sound present GI Inspection: Yes normal to inspection Palpation (GI): Soft to palpation, not firm, nontender, no guarding and not rigid General: Yes no CVA tenderness Back/Spine/Pelvis Back: no CVA tenderness and No back tenderness Skin General skin exam: no rashes or lesions noted, elasticity normal and turgor normal Neuro General: oriented to person, oriented to place, oriented to time, patient oriented x3, gait normal, tone normal, moves all extremities, Normal light touch and pain sensation, no meningeal signs, no focal motor deficits, CN's II-XI intact bilaterally and normal sensation to monofilament Extrem General: Yes normal to inspection and Yes full ROM Psych Appearance: grossly normal, well kempt and not disheveled Medical Decision Making Medical Decision Making MDM Narrative: 4-year-old male history of alcohol abuse presents to ED for drinking alcohol. Patient denies any trauma. EMS report denies any trauma. Patient no longer depressed. Patient is not suicidal or homicidal. Patient will be watched and monitored for couple hours. Patient changed into close. Patient is eating chips. 6:05pm: patient A0x3. patient would like to be discharged. Dr. Darling agrees patient can be dischaged. Differential Diagnosis Differential Diagnoses: The differential diagnosis associated with the presentation includes (Alcohol abuse) Admission/Observation Consideration of admission/observation: Escalation of care including admission/observation considered Independent Historian Clinical information obtained from an independent historian. History obtained from or confirmed by: EMS and Other (Patient) External Record Review External record reviewed: Other (Prior visits) Discharge Plan Discharge Clinical Impression: Alcohol abuse Patient Disposition: Home, Self-Care Instructions: Abuse of Alcohol (ED) Additional Instructions: Recommend follow-up with the primary care provider. Return to the ED for any suicidal homicidal ideation, auditory/visual hallucinations, chest pain, shortness of breath, abdominal pain, nausea, vomiting, or any other concerning symptoms. Prescriptions: No Action No Known Home Meds Rx Instructions: Off medication for over a year Discharge Date/Time: 10/16/23 18:49 Print Language: Stateless
--- NOTE | 2023-10-16 18:05 | PC.NURSE ---
patient ambulating in ED hallway with steady gait, given dinner tray. patient is calm and cooperative
[2023-10-16 18:41] VITALS: BP 123/64; PULSE 76; RESP 18; TEMP 36.4; O2SAT 99
== END 2023-10-16 18:49 | disposition home or self-care (01) ==
PROVIDERS: Emergency Provider Internal Medicine; PCP Family Medicine
DX: F10.10 Alcohol abuse, uncomplicated (principal); F33.1 Major depressive disorder, recurrent, moderate; Y90.9 Presence of alcohol in blood, level not specified
CPT/HCPCS: 99282; 99284

== ENCOUNTER 2023-10-28 10:35 | Outpatient (REF) | payer OTHER, SELFPAY ==
[2023-10-28 11:42] LABS: Hematocrit 42.4 % (42.0-52.0); Hemoglobin 14.1 g/dl (14.0-18.0); Mean Corpuscular HGB Conc 33.3 g/dl (31.0-36.0); Mean Corpuscular Hemoglobin 28.2 pg (27.0-33.0); Mean Corpuscular Volume 84.8 fL (80.0-98.0); Mean Platelet Volume 9.5 fL (9.4-12.4); Platelet Count 186 X10*3/uL (160-400); Red Cell Distribution Width 13.9 % (11.0-16.0); White Blood Count 6.4 X10*3/uL (4.8-10.8)
[2023-10-28 12:02] LABS: Estimated Average Glucose 105 mg/dL; Hemoglobin A1c % 5.3 % (<6.0)
[2023-10-28 12:38] LABS: Alanine Aminotransferase 27 U/L (0-40); Albumin Level 4.4 g/dL (3.5-5.0); Alkaline Phosphatase 125 U/L (39-117); Anion Gap 16 (12-20); Aspartate Amino Transferase 48 U/L (5-37); Bilirubin Direct 0.3 mg/dL (0.0-0.5); Bilirubin Total 0.7 mg/dL (0.0-1.0); Blood Urea Nitrogen 6 mg/dL (9-16); Calcium 9.7 mg/dL (8.4-10.2); Carbon Dioxide 23 mmol/L (22-29); Chloride 104 mmol/L (96-108); Cholesterol 147 mg/dL (<200); Estimated Glomerular Filt Rate > 60; Glucose Random 78 mg/dL (60-115); HDL Cholesterol 73 mg/dL (>40); LDL Cholesterol Calculated 63 mg/dL (<100); Potassium 3.8 mmol/L (3.3-5.1); Sodium 139 mmol/L (135-145); Total Protein 8.1 g/dL (6.5-8.0); Triglycerides 56 mg/dL (<150)
[2023-10-28 13:00] LABS: Ferritin 219 ng/mL (20-250); Thyroid Stimulating Hormone 0.47 uIU/mL (0.32-4.0); Vitamin D 25-OH Total 57.4 ng/mL (>30)
[2023-10-28 13:05] LABS: Folate 11.2 ng/mL (> or = 4.0); Vitamin B12 873 pg/mL (200-900)
[2023-10-31 12:58] LABS: Alpha Fetoprotein 1.8 ng/mL (<6.1)
== END 2023-10-28 10:36 | disposition home or self-care (01) ==
LOC: HO.HHCL 10:35
PROVIDERS: Visit Provider Family Medicine
DX: K76.0 Fatty (change of) liver, not elsewhere classified (principal); F10.20 Alcohol dependence, uncomplicated
CPT/HCPCS: 36415; 80048; 80061; 80076; 82105; 82306; 82607; 82728; 82746; 83036; 84134; 84439; 84443; 85027

== ENCOUNTER 2024-01-25 10:04 | Outpatient (REF) | payer OTHER, SELFPAY ==
[2024-01-25 11:39] LABS: Hematocrit 43.3 % (42.0-52.0); Hemoglobin 14.1 g/dl (14.0-18.0); Mean Corpuscular HGB Conc 32.6 g/dl (31.0-36.0); Mean Corpuscular Hemoglobin 28.4 pg (27.0-33.0); Mean Corpuscular Volume 87.3 fL (80.0-98.0); Mean Platelet Volume 10.3 fL (9.4-12.4); Platelet Count 163 X10*3/uL (160-400); Red Blood Count 4.96 X10*6/uL (4.60-5.80); Red Cell Distribution Width 14.7 % (11.0-16.0); White Blood Count 7.6 X10*3/uL (4.8-10.8)
[2024-01-25 11:56] LABS: Estimated Average Glucose 97 mg/dL
[2024-01-25 12:17] LABS: Alanine Aminotransferase 68 U/L (0-40); Albumin Level 4.5 g/dL (3.5-5.0); Alkaline Phosphatase 102 U/L (39-117); Anion Gap 13 (12-20); Aspartate Amino Transferase 90 U/L (5-37); Bilirubin Direct 0.6 mg/dL (0.0-0.5); Bilirubin Total 1.4 mg/dL (0.0-1.0); Blood Urea Nitrogen 8 mg/dL (9-16); Calcium 10.2 mg/dL (8.4-10.2); Carbon Dioxide 26 mmol/L (22-29); Chloride 99 mmol/L (96-108); Cholesterol 181 mg/dL (<200); Estimated Glomerular Filt Rate > 60; Free T4 (Free Thyroxine) 0.98 ng/dL (0.71-1.85); Glucose Random 87 mg/dL (60-115); HDL Cholesterol 88 mg/dL (>40); LDL Cholesterol Calculated 83 mg/dL (<100); Sodium 134 mmol/L (135-145); Thyroid Stimulating Hormone 0.53 uIU/mL (0.32-4.0); Total Protein 8.4 g/dL (6.5-8.0); Triglycerides 50 mg/dL (<150); Vitamin D 25-OH Total 47.6 ng/mL (>30)
== END 2024-01-25 10:05 | disposition home or self-care (01) ==
LOC: HO.HHCL 10:04
PROVIDERS: Visit Provider Family Medicine
DX: R42 Dizziness and giddiness (principal)
CPT/HCPCS: 36415; 80048; 80061; 80076; 82306; 83036; 84439; 84443; 85027

== ENCOUNTER 2024-03-16 14:55 | Outpatient (REF) | payer OTHER, SELFPAY ==
[2024-03-16 16:32] LABS: Iron 94 mcg/dL (45-160); Percent Iron Saturation 30 % (15-50); Total Iron Binding Capacity 311 mcg/dL (228-428); Unsaturated Iron Binding 217 ug/dL
== END 2024-03-16 14:56 | disposition home or self-care (01) ==
LOC: HO.HHCL 14:55
PROVIDERS: Visit Provider Family Medicine
DX: F10.20 Alcohol dependence, uncomplicated (principal)
CPT/HCPCS: 36415; 83540

== ENCOUNTER 2024-03-27 13:56 | Outpatient (REF) | payer OTHER, SELFPAY ==
[2024-03-27 16:02] LABS: Appearance Urine Clear; Color Urine Yellow; Glucose Urine UA Negative (Negative); Leukocyte Esterase Urine Negative (Negative); Nitrite Urine Negative (Negative); PH 5.5 (5.0-9.0); Specific Gravity - Urine <= 1.005 (1.005-1.025); Urine Blood Negative (Negative); Urine Ketones Negative (Negative); Urine Protein Negative (Neg-Trace)
[2024-03-27 16:06] LABS: MANUAL DIFF FLAG NO
[2024-03-27 16:13] LABS: Bacteria Urine None Seen (None Seen); Hyaline Casts Urine 0-2 /LPF (0-2); RBC Urine 0-2 /HPF (0-2); Squamous Epithelial Cell Urine 0-2 /HPF (0-2); WBC Urine 0-5 /HPF (0-5)
[2024-03-27 16:25] LABS: Basophils Absolute Auto 0.1 X10*3/uL (0.0-0.2); Basophils Percent Auto 0.7 % (0-2); Eosinophils Absolute Auto 0.2 X10*3/uL (0.0-0.4); Eosinophils Percent Auto 2.6 % (0-4); Hematocrit 41.5 % (42.0-52.0); Hemoglobin 13.9 g/dl (14.0-18.0); Imm Gran Abs Auto 0.03 X10*3/uL (0.00-0.03); Imm Gran Pct Auto 0.4 % (0.0-0.4); Lymphocytes Percent Auto 25.3 % (20-40); Mean Corpuscular HGB Conc 33.5 g/dl (31.0-36.0); Mean Corpuscular Hemoglobin 29.6 pg (27.0-33.0); Mean Corpuscular Volume 88.3 fL (80.0-98.0); Mean Platelet Volume 9.6 fL (9.4-12.4); Monocytes Absolute Auto 0.7 X10*3/uL (0.1-1.2); Monocytes Percent Auto 8.7 % (2-11); Neutrophils Percent Auto 62.3 % (45-73); Platelet Count 261 X10*3/uL (160-400); Red Cell Distribution Width 13.8 % (11.0-16.0)
[2024-03-27 16:42] LABS: Alanine Aminotransferase 21 U/L (0-40); Albumin Level 4.1 g/dL (3.5-5.0); Alkaline Phosphatase 73 U/L (39-117); Anion Gap 15 (12-20); Aspartate Amino Transferase 35 U/L (5-37); Bilirubin Direct 0.2 mg/dL (0.0-0.5); Bilirubin Total 0.4 mg/dL (0.0-1.0); Blood Urea Nitrogen 6 mg/dL (9-16); C Reactive Protein 0.12 mg/dL (< or = 0.50); Calcium 9.6 mg/dL (8.4-10.2); Carbon Dioxide 23 mmol/L (22-29); Chloride 100 mmol/L (96-108); Estimated Glomerular Filt Rate > 60; Glucose Random 117 mg/dL (60-115); Potassium 3.8 mmol/L (3.3-5.1); Sodium 134 mmol/L (135-145); Total Protein 7.6 g/dL (6.5-8.0)
[2024-03-27 16:58] LABS: Free T4 (Free Thyroxine) 1.09 ng/dL (0.71-1.85); Thyroid Stimulating Hormone 0.46 uIU/mL (0.32-4.0)
[2024-03-27 17:06] LABS: Erythrocyte Sedimentation Rate 2 MM/HR (0-15)
[2024-03-27 17:29] LABS: Prostate Specific Antigen 2.95 ng/mL (<0.05-4.0)
[2024-03-28 08:34] LABS: HIV AB/AG Nonreactive (Nonreactive); HIV Num 1 0.07 S/CO (0.00-0.99)
[2024-03-29 22:09] LABS: TS Negative Control Passed; TS Panel A 1; TS Panel B 0; TS Positive Control Passed; TSpotTB Negative (Negative)
== END 2024-03-27 13:57 | disposition home or self-care (01) ==
LOC: HO.HHCL 13:56
PROVIDERS: Visit Provider Family Medicine
DX: R63.4 Abnormal weight loss (principal); Z12.5 Encounter for screening for malignant neoplasm of prostate
CPT/HCPCS: 36415; 80048; 80076; 81001; 84134; 84153; 84439; 84443; 85025; 85652; 86140; 86481; 87389

== ENCOUNTER 2024-04-10 09:13 | Outpatient (REF) | payer OTHER, SELFPAY ==
--- NOTE | ~2024-04-10 | CT_ITS ---
EXAMINATION: CT ABDOMEN AND PELVIS WITH CONTRAST CLINICAL INFORMATION: Decreased appetite, early satiety COMPARISON: None TECHNIQUE: Multiple axial images were obtained from the superior aspect of the liver through the pubic symphysis after the administration of 85 mL of intravenous Omnipaque 350. Images were evaluated on independent dedicated 3-D workstation and 3-D images were reconstructed with concurrent radiologist supervision and subsequently interpreted. Oral contrast was administered. This CT examination was performed using dose optimization techniques as appropriate, variously including the following: *Automated exposure control *Adjustment of mA and/or kV according to patient size (this includes techniques or standardized protocols for targeted exams where dose is matched to indication/reason for exam; i.e. extremities or head) *Use of iterative reconstruction technique DLP: 528 mGy-cm FINDINGS: LUNG BASES: The visualized lung bases are clear. CARDIOMEDIASTINUM: The visualized heart is normal in size without pericardial effusion. No coronary artery calcification. LIVER: Homogeneous in attenuation. Normal in size. GALLBLADDER: Noninflamed. BILIARY SYSTEM: No intrahepatic or extrahepatic biliary dilation. PANCREAS: Homogeneous in attenuation. SPLEEN: Normal in size. GENITOURINARY: Bilateral kidneys demonstrate symmetric enhancement. No perinephric fluid collection. No renal calculi. No hydroureteronephrosis. Urinary bladder is fluid-filled. Anterior bladder diverticulum measuring 4.6 x 1.9 cm. ADRENAL GLANDS: Unremarkable. REPRODUCTIVE: Prostatomegaly. GASTROINTESTINAL: The visualized alimentary tract is normal in course. No evidence of obstruction. APPENDIX: The appendix is seen in its entirety and is unremarkable. PERITONEUM: No pneumoperitoneum. No intra-abdominal fluid collection. VASCULATURE: The abdominal aorta is normal in course and caliber. LYMPH NODES: No pathologically enlarged abdominal or pelvic lymph nodes. SOFT TISSUES/MUSCULOSKELETAL: Left hip ORIF with osseous deformity.. No acute fracture or focal osseous lesions. CT/CT abdomen pelvis w IV con IMPRESSION: 1. No acute abdominal or pelvic pathology. 2. Bladder diverticulum and prostatomegaly. Correlate for bladder outlet obstruction. Fleischner guidelines were followed. Electronically signed by: Zeyad Lopez DO 04/17/2024 12:35 AM EDT
[2024-04-10] MEDS: iohexoL 350 MG/ML 100 ML INFUS..BTL IV (12:23)
[2024-04-10] MEDS: Barium Sulfate Oral (Mocha) 450 ML ORAL.SUSP 900 ML PO (12:25)
== END 2024-04-10 09:14 | disposition home or self-care (01) ==
LOC: HO.CT 09:13
PROVIDERS: PCP Family Medicine; Visit Provider Family Medicine
DX: R63.0 Anorexia (principal)
CPT/HCPCS: 74177; Q9967

== ENCOUNTER 2025-01-18 15:45 | Emergency (ER) | payer OTHER, SELFPAY ==
--- NOTE | ~2025-01-18 | CT_ITS ---
CLINICAL HISTORY: fall, +LOC, +HS, ETOH CT head without contrast Comparison: None Findings: No intra-axial mass, midline shift, hydrocephalus, or acute hemorrhage. There is atrophy. There are nonspecific bilateral supratentorial white matter hypodensities most suggestive of chronic small-vessel ischemic changes. Small nonacute lacunar infarct in the left thalamus and right basal ganglia. Right basal ganglia lacunar infarct extends superiorly and appears to communicate with the right lateral ventricle laterally. Atherosclerotic vascular disease. Minimal left maxillary sinus mucous retention cyst/polyp and otherwise sinuses and mastoid air cells are clear. The orbits are unremarkable. No acute skull fracture. IMPRESSION: 1. No acute intracranial findings. 2. Nonacute findings as described. This document has been electronically signed by: Gabriella Menjivar MD on 01/18/2025 18:24:51
--- NOTE | ~2025-01-18 | CT_ITS ---
CLINICAL HISTORY: fall, +LOC, +HS, ETOH CT cervical spine without contrast Comparison: None Findings: Cervical alignment is maintained with no subluxation. No acute fracture in the cervical spine. 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 No basilar invagination. Minimal spondylosis. Mild degenerative changes at C3-4. Prevertebral soft tissues within normal limits. Atherosclerotic vascular disease. Thyroid only partially visualized. Lung apices were not imaged. IMPRESSION: 1. No acute findings in the cervical spine. 2. Atlantooccipital assimilation. This document has been electronically signed by: Gabriella Menjivar MD on 01/18/2025 18:19:06
--- NOTE | ~2025-01-18 | CT_ITS ---
CLINICAL HISTORY: fall, +LOC, +HS, ETOH CT maxillofacial without contrast Comparison: None Findings: There is lucency through the right zygomatic arch in the mid aspect consistent with nondisplaced fracture. No overlying soft tissue swelling and this could be nonacute. No additional facial bone fractures. Temporomandibular joints are intact with no dislocation. Minimal mucous retention cyst/polyp in the left maxillary sinus and minimal mucosal thickening in ethmoid air cells bilaterally. Otherwise paranasal sinuses and mastoid air cells are clear. Orbits are unremarkable. No significant facial soft tissue swelling or edema. No foreign bodies. IMPRESSION: 1. Nondisplaced right zygomatic arch fracture with no overlying soft tissue swelling. This could be nonacute. Correlate clinically. 2. No additional facial bone fractures. This document has been electronically signed by: Gabriella Menjivar MD on 01/18/2025 18:29:27
--- NOTE | 2025-01-18 15:55 | ED.HEATRA ---
HPI - Head Injury General Chief complaint: ETOH/Substance Use Stated complaint: FALL, ETOH, +LAC, COLLAR PER EMS Time Seen by Provider: 01/18/25 16:08 Source: patient and EMS Mode of arrival: EMS Limitations: no limitations History of Present Illness ED Provider: Rachel Thomas NP HPI Narrative: patient is a 59-year-old male with past medical history of alcohol use disorder, liver problems reportedly who presents emergency department for evaluation after a witnessed fall and bystanders. Admits to drinking a 12 pack of beers today, had a fall with positive LOC of unclear duration, patient also states that he syncopized. Sustained abrasions over the left over the cheek. When asked if he is having any pain, he points to his neck/ hard cervical spine collar And states get this thing off me . Related Data Home Medications ?Medication ?Instructions ?Recorded ?Confirmed No Known Home Meds 02/06/22 02/06/22 Allergies Allergy/AdvReac Type Severity Reaction Status Date / Time No Known Allergies Allergy Verified 01/18/25 16:10 [No Known Allergies*] Review of Systems Review of Systems: Yes all other systems are reviewed and are negative [facility] Past Medical History Attestation statement: The following information was validated with the patient. Source: old records reviewed Medical History Hx of subarachnoid hemorrhage Tubular adenoma Hx of primary hypertension Major depression Fatty liver Chronic GERD Thrombocytopenia Unintended weight loss ETOH abuse Social History Social History Alcohol intake: current Alcohol intake frequency: 3 or more drinks per day Alcohol type: beer Comment: Room 387-1 assigned, pt was discharged from ED Patient Tobacco Use Status: Never used Tobacco Advance Directives: No Advance Directives Information Provided: No Do you have a plan to hurt others: No Plan Physical Exam Vital Signs: Vital Signs: Last Vital Signs Temp 97.3 F 01/18/25 20:59 Pulse 81 01/18/25 20:59 Resp 16 01/18/25 20:59 BP 127/75 01/18/25 20:59 Pulse Ox 96 01/18/25 20:59 O2 Del Method Room Air 01/18/25 20:59 BMI result Body Mass Index 24.7 Appearance: Alert.?Oriented to person, place and time. No acute distress.?Normal affect. Head: Normocephalic. superficial abrasions over the left cheek Eyes: Pupils equal, round and reactive to light. EOMI. Conjunctiva and sclera normal? No Sandoval sign noted. No raccoon eyes noted ENT: No septal hematoma, nares patent bilaterally. External auditory canal normal tympanic membrane pearly tipton and intact bilaterally. Dentition normal, no fractured teeth. No lesions or lacerations of oropharynx. Uvula midline. Moist mucous membranes. Neck: Normal inspection.? Neck supple.??No palpable tenderness, step-off, deformities. CVS: Heart sounds normal. Normal heart rate and rhythm.? Pulses normal.?? Respiratory: No respiratory distress.? Lung sounds clear to auscultation bilaterally?? Abdomen: Soft and non-tender. Normoactive bowel sounds. ?? Skin: Skin warm and dry.? Normal skin color.? Normal skin turgor.?? Extremities: No lower extremity edema.? Neuro: Moves all extremities spontaneously. Sensation intact bilaterally. CN II-XII intact. No focal neuro deficits. Course Reevaluation(s) Reevaluation #1: Patient has self removed hard cervical spine collar, will not last staff to replace despite my talking to the patient multiple times. CT scan pending at this time in addition to serum labs. Patient will be signed out to Jayden GALVEZ pending re-evaluation and safe disposition Time: 17:56 Reevaluation #2: I Giselle Padron PA-C have accepted care of the patient and signed out pending imaging and final disposition. The patient is very eager to be discharged, his serum ethanol 377, awaiting CT scans of max face, cervical spine and brain CT brain:MPRESSION: 1. No acute intracranial findings. 2. Nonacute findings as described. CT cervical spine:IMPRESSION: 1. No acute findings in the cervical spine. 2. Atlantooccipital assimilation. CT max face:IMPRESSION: 1. Nondisplaced right zygomatic arch fracture with no overlying soft tissue swelling. This could be nonacute. Correlate clinically. 2. No additional facial bone fractures. Consultations Consultation #1: paging [facility] trauma service, secondary to zygomatic arch fracture, they in turn we will reach out to maxillofacial surgeon, spoke with Dr. Beck from the trauma service, given that this is an isolated facial bone fx, they are reaching out to [facility] as expected.....the Pt will likely not require transfer Time: 19:39 Consultation #2: Spoke with Dr. Thomas from maxillofacial surgery, the patient can follow up as an outpatient, he can call the office Tuesday to schedule an appointment. The patient should eat a pureed or soft diet in the meantime. Time: 20:25 Medications Administered Discontinued Medications Generic Name Dose Route Start Last Admin Trade Name Freq PRN Reason Stop Dose Admin Diphtheria/Tetanus/Acell Pertussis 0.5 ml 01/18/25 16:22 01/18/25 17:26 Diphth,Pertus(Acell),Tet Adult 0.5 Ml Syringe IM 01/18/25 16:23 0.5 ml .ONCE ONE Administration Medical Decision Making Medical Decision Making MDM Narrative: patient is a 59-year-old male with past medical history of alcohol use disorder who presents emergency department for evaluation after a fall with head strike positive LOC in setting of alcohol usage as per HPI. He offers no physical complaints when asked, he is calm and cooperative though clearly under the influence of alcohol. He has no focal neurological deficits. However given history and mechanism of injury will obtain CT of the head and cervical spine to exclude ICH, SDH, fracture, subluxation as well as CT of the facial bones. Superficial abrasions over the left cheek, cleansed with normal saline, will update Tdap. Although I suspect that these symptoms were secondary to his alcohol usage, given the loss of consciousness plan to additionally obtain serum labs as well as EKG for further evaluation Differential Diagnosis Differential Diagnoses: The differential diagnosis associated with the presentation includes (See narrative above) Admission/Observation Consideration of admission/observation: Escalation of care including admission/observation considered (See narrative above) Lab Data [facility] Lab Attestation statement: I reviewed the patient's lab results. CBC is without leukocytosis has a mild normocytic anemia that transmitted and criteria mild thrombocytopenia. Chemistries and toxicology/ethanol level are pending 01/18/25 17:16 01/18/25 17:16 Labs: Lab Results 01/18/25 01/18/25 Range/Units 17:16 17:43 WBC 5.1 (4.8-10.8) X10*3/uL RBC 4.58 L (4.60-5.80) X10*6/uL Hgb 13.4 L (14.0-18.0) g/dl Hct 41.3 L (42.0-52.0) % MCV 90.2 (80.0-98.0) fL MCH 29.3 (27.0-33.0) pg MCHC 32.4 (31.0-36.0) g/dl RDW 14.6 (11.0-16.0) % Plt Count 152 L D (160-400) X10*3/uL MPV 9.5 (9.4-12.4) fL Immature Gran % (Auto) 0.2 (0.0-0.4) % Neut % (Auto) 51.3 (45-73) % Lymph % (Auto) 33.3 (20-40) % [place] % (Auto) 11.8 H (2-11) % Eos % (Auto) 2.4 (0-4) % Baso % (Auto) 1.0 (0-2) % Lymph # (Auto) 1.7 (1.2-4.9) X10*3/uL [place] # (Auto) 0.6 (0.1-1.2) X10*3/uL Eos # (Auto) 0.1 (0.0-0.4) X10*3/uL Baso # (Auto) 0.1 (0.0-0.2) X10*3/uL Abs Immat Gran (auto) 0.01 (0.00-0.03) X10*3/uL Absolute Neuts (auto) 2.6 (2.0-8.3) x10*3/uL Absolute Nucleated RBC 0.000 (0.0-0.012) X10*3/uL Nucleated RBC % (auto) 0.0 (0.0-0.2) /100WBC Sodium 141 (135-145) mmol/L Potassium 4.3 (3.3-5.1) mmol/L Chloride 106 (96-108) mmol/L Carbon Dioxide 25 (22-29) mmol/L Anion Gap 14 (12-20) BUN 7 L (9-16) mg/dL Creatinine 0.64 (0.5-1.4) mg/dL Estim Creat Clear Calc 93.6 Estimated GFR > 60 Random Glucose 94 (60-115) mg/dL Calcium 8.9 D (8.4-10.2) mg/dL Magnesium 1.7 (1.6-2.6) mg/dL Total Bilirubin 0.4 (0.0-1.0) mg/dL AST 122 H (5-37) U/L ALT 79 H (0-40) U/L Alkaline Phosphatase 79 (39-117) U/L Troponin I High Sens 6.7 D (<3.5-35.0) ng/L Total Protein 7.3 (6.5-8.0) g/dL Albumin 4.3 (3.5-5.0) g/dL Lipase 82 H (8-78) U/L Urine Opiates Screen Not Detected (Not Detect) Ur Buprenorphine Scrn Not Detected (Not Detect) ng/mL Ur Oxycodone Screen Not Detected (Not Detect) ng/mL Urine Methadone Screen Not Detected (Not Detect) ng/mL Urine Fentanyl Screen Not Detected (Not Detect) Ur Barbiturates Screen Not Detected (Not Detect) Ur Phencyclidine Scrn Not Detected (Not Detect) Ur Amphetamines Screen Not Detected (Not Detect) U Benzodiazepines Scrn Not Detected (Not Detect) Urine Cocaine Screen Not Detected (Not Detect) U Marijuana (THC) Screen Not Detected (Not Detect) Ethyl Alcohol 377 H* mg/dL Independent Interpretation I performed an independent interpretation of an: EKG (Normal sinus rhythm, ventricular rate of 78, normal SUZANNE, QTC 414, no ST-elevation) Critical Care Time Critical Care Time Critical Care Time: Yes Total Critical Care Time: 35 Attestation: Time is exclusive of separately billable procedures. Time includes: direct patient care, patient reassessment, coordination of patient care, interpretation of data (laboratory data, pulse oximetry, arterial blood gases and chest xrays), review of patient's medical records, medical consultation and documentation of patient care. Procedures excluded from critical care time: central intravenous line placement and electrocardiography. Discharge Plan Discharge Clinical Impression: Closed fracture of right zygomatic arch Patient Disposition: Home, Self-Care Instructions: Facial Fracture (ED) Additional Instructions: You were found to have a fracture of the right cheek. You need to eat a pureed or soft diet, until you follow up with the maxillofacial surgeon, Dr. Thomas. I am providing you with the his contact, call Tuesday to schedule an appointment. Dr. Galdino Thomas [address] [place] [phone] Prescriptions: No Action No Known Home Meds Rx Instructions: Off medication for over a year Interventions: ED Discharge Assessment Last Done: 01/18/25 20:59 Discharge Date/Time: 01/18/25 21:01 Print Language: Unable To Collect
--- NOTE | 2025-01-18 15:56 | ECG_ITS ---
Test Reason : FALL Blood Pressure : */* mmHG Vent. Rate : 78 BPM Atrial Rate : 78 BPM P-R Int : 130 ms QRS Dur : 82 ms QT Int : 364 ms P-R-T Axes : 64 62 72 degrees QTcB Int : 414 ms Normal sinus rhythm Normal ECG When compared with ECG of 16-Apr-2023 14:29, No significant change was found Referred By: Rachel Thomas Electronically Signed By: JACLYN HICKEY
[2025-01-18 16:04] VITALS: BP 110/70; BP 138/81; PULSE 92; PULSE 98; RESP 18; TEMP 36.6; O2SAT 92; O2SAT 96; BMI 24.7
[2025-01-18 17:22] LABS: MANUAL DIFF FLAG NO
[2025-01-18 17:23] LABS: Basophils Absolute Auto 0.1 X10*3/uL (0.0-0.2); Eosinophils Absolute Auto 0.1 X10*3/uL (0.0-0.4); Eosinophils Percent Auto 2.4 % (0-4); Hematocrit 41.3 % (42.0-52.0); Hemoglobin 13.4 g/dl (14.0-18.0); Imm Gran Abs Auto 0.01 X10*3/uL (0.00-0.03); Imm Gran Pct Auto 0.2 % (0.0-0.4); Lymphocytes Absolute Auto 1.7 X10*3/uL (1.2-4.9); Lymphocytes Percent Auto 33.3 % (20-40); Mean Corpuscular HGB Conc 32.4 g/dl (31.0-36.0); Mean Corpuscular Hemoglobin 29.3 pg (27.0-33.0); Mean Corpuscular Volume 90.2 fL (80.0-98.0); Mean Platelet Volume 9.5 fL (9.4-12.4); Monocytes Absolute Auto 0.6 X10*3/uL (0.1-1.2); Monocytes Percent Auto 11.8 % (2-11); Neutrophils Absolute Auto 2.6 x10*3/uL (2.0-8.3); Neutrophils Percent Auto 51.3 % (45-73); Platelet Count 152 X10*3/uL (160-400); Red Blood Count 4.58 X10*6/uL (4.60-5.80); Red Cell Distribution Width 14.6 % (11.0-16.0); White Blood Count 5.1 X10*3/uL (4.8-10.8)
[2025-01-18] MEDS: Diphth,Pertus(ACell),Tet Adult 0.5 ML SYRINGE IM (17:26)
[2025-01-18 17:44] LABS: Troponin-I High Sensitivity 6.7 ng/L (<3.5-35.0)
--- NOTE | 2025-01-18 17:48 | MHC.EDTECH ---
Patient not cooperating refused to changed even through he was incontinent of urine and removed his C-collar
--- NOTE | 2025-01-18 17:48 | PC.NURSE ---
Pt found to be up ambulating out of bed, self removed c collar. Pt educated on need for c-collar to be worn d/t CT scan results not back yet. Pt continues to refuse/ignore this RN. [employer] Cody aware.
[2025-01-18 18:02] LABS: Amphetamine Screen Urine Not Detected (Not Detect); Barbiturates, Urine Not Detected (Not Detect); Benzodiazepines Screen Urine Not Detected (Not Detect); Buprenorphine Scr Not Detected (Not Detect); Cannabinoid Screen Urine Not Detected (Not Detect); Cocaine Screen Urine Not Detected (Not Detect); Fentanyl, urine Not Detected (Not Detect); Methadone Screen, Urine Not Detected (Not Detect); Opiate Screen Urine Not Detected (Not Detect); Oxycodone Screen Urine Not Detected (Not Detect); Phencyclidine Screen Urine Not Detected (Not Detect)
[2025-01-18 18:07] LABS: Alanine Aminotransferase 79 U/L (0-40); Albumin Level 4.3 g/dL (3.5-5.0); Anion Gap 14 (12-20); Aspartate Amino Transferase 122 U/L (5-37); Bilirubin Total 0.4 mg/dL (0.0-1.0); Blood Urea Nitrogen 7 mg/dL (9-16); Calcium 8.9 mg/dL (8.4-10.2); Carbon Dioxide 25 mmol/L (22-29); Chloride 106 mmol/L (96-108); Creatinine Clr Calc Pharmacy 93.6; Estimated Glomerular Filt Rate > 60; Ethanol 377 mg/dL; Glucose Random 94 mg/dL (60-115); Lipase 82 U/L (8-78); Magnesium 1.7 mg/dL (1.6-2.6); Potassium 4.3 mmol/L (3.3-5.1); Sodium 141 mmol/L (135-145); Total Protein 7.3 g/dL (6.5-8.0)
[2025-01-18 18:41] VITALS: BP 141/75; PULSE 81; RESP 16; TEMP 36.6; O2SAT 98
[2025-01-18 19:59] LABS: Alkaline Phosphatase 79 U/L (39-117)
[2025-01-18 20:00] VITALS: BP 127/75; PULSE 81; RESP 16; TEMP 36.3; O2SAT 96
[2025-01-18 20:59] VITALS: BP 127/75; PULSE 81; RESP 16; TEMP 36.3; O2SAT 96
== END 2025-01-18 21:01 | disposition home or self-care (01) ==
PROVIDERS: Nurse Practitioner Family; Emergency Provider Emergency Medicine
DX: S00.81XA Abrasion of other part of head, initial encounter (principal); S02.40EA Zygomatic fracture, right side, initial encounter for closed fracture; R55 Syncope and collapse; F10.129 Alcohol abuse with intoxication, unspecified; R51.9 Headache, unspecified; Y90.8 Blood alcohol level of 240 mg/100 ml or more; D64.9 Anemia, unspecified; D69.6 Thrombocytopenia, unspecified; M54.2 Cervicalgia; X58.XXXA Exposure to other specified factors, initial encounter; W19.XXXA Unspecified fall, initial encounter; Y93.9 Activity, unspecified; Y92.9 Unspecified place or not applicable; Y99.8 Other external cause status; Z51.81 Encounter for therapeutic drug level monitoring; Z79.899 Other long term (current) drug therapy
CPT/HCPCS: 36415; 70450; 70486; 72125; 80053; 80307; 83690; 83735; 84484; 85025; 90471; 90715; 93005; 99284; 99285

== ENCOUNTER → 2025-01-18 15:55 | Outpatient (BNV) | payer OTHER, SELFPAY | PROVIDERS: Emergency Provider Emergency Medicine; Visit Provider Specialist | DX: S06.9X9A Unspecified intracranial injury with loss of consciousness of unspecified duration, initial encounter (principal); F10.90 Alcohol use, unspecified, uncomplicated; W19.XXXA Unspecified fall, initial encounter | CPT/HCPCS: 70450; 70486; 72125 ==

== ENCOUNTER → 2025-01-18 15:56 | Outpatient (BNV) | payer OTHER, SELFPAY | PROVIDERS: Emergency Provider Emergency Medicine; Visit Provider Internal Medicine | DX: Z13.6 Encounter for screening for cardiovascular disorders (principal) | CPT/HCPCS: 93010 ==